=== PATIENT | male | born 1955 | race Caucasian/White ===

== ENCOUNTER 2016-09-03 16:11 | Inpatient (IN) | payer OTHER ==
[2016-09-03] VITALS (8 sets, daily range): BP systolic 126–158; BP diastolic 63–95
[~2016-09-03] VITALS: Ht 178 cm; Wt 112.7 kg
--- NOTE | ~2016-09-03 | CON ---
[place], [place] REPORT OF CONSULTATION NAME: MAKSIM SMILEY UNIT #: [id number] ROOM: [place] [address] DOCTOR: ALVIN HURST MD BIRTHDATE: [birth year] DOS: 09/09/2016 PSYCHIATRIC CONSULT CHIEF COMPLAINT: "I feel miserable. I am so depressed and I am going through withdrawal." HISTORY OF THE PRESENT ILLNESS: This is a 60-year-old white male who was admitted due to a 5-day history of nausea, vomiting, and shortness of breath. The patient quit his insulin as well approximately for 3 weeks, has been drinking at least a 12 pack of beer per day in addition to hard liquor and also has a significant opioid dependency. He is now in ICU for the treatment of these conditions and is actively withdrawing from both alcohol and opioids. He admits to a lengthy history of depression. He receives his psychiatric care at the [facility] and states that the last time he had followup was approximately 6 months ago. He endorses poor sleep and appetite, anergia, anhedonia, hopeless, helpless feelings, crying spells, and inability to cope as well as increased anxiety and restlessness and multiple symptoms of opioid withdrawal. PAST MEDICAL HISTORY: Remarkable for alcohol abuse, chronic venous insufficiency, COPD, debility, hyperlipidemia, gout, hepatitis C, cirrhosis, hypertension, diabetes, major depression, neuropathy, anemia, sleep apnea. DIAGNOSES: Major depression, recurrent and polysubstance dependence. PLAN: I will the discontinue his Trintellix, Cymbalta, and Abilify in lieu of Zyprexa 5 mg in the morning and 10 mg at night and Remeron 15 mg at night. These drugs should rapidly improve sleep and appetite. They also will block a significant amount of the opioid withdrawal symptoms. The patient requested follow up with me in the office and I have no problem with having him follow up at [facility] if he prefers. Should he require further intervention, please call me. ALVIN HURST MD CM:CONSTR:REPORT OF CONSULTATION 0927 09/09/16 2232 interface
--- NOTE | ~2016-09-03 | CON ---
[place], [place] REPORT OF CONSULTATION [id number] UNIT #: [id number] ROOM: [place] [address] DOCTOR: ARVIN SULLIVAN ED.D (CARMINA) BIRTHDATE: [birth year] DOS: HISTORY OF PRESENT ILLNESS: The patient is a 60-year-old male referred by the hospitalist for psychological evaluation. At the present time, he is in the Intensive Care Unit at [facility]. The patient states he is and has 3 children. He states he has some contact with his children, but not much. 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 He follows at the [facility] here in [place] for his medical care. His medical history is pertinent for insulin-dependent diabetes mellitus, alcohol dependence, COPD, gout, hypertension, depression, morbid obesity, congestive heart failure and/or urinary incontinence. His medications include morphine, OxyContin, Robaxin, insulin, Lasix, Symbicort, Abilify, Ventolin, Remeron, Aldactone, Trintellix and Xanax. He admits to drinking one-fifth of vodka each day along with a 6-pack of beer. He also smokes 1 pack of cigarettes per day. This patient was awake, alert and oriented in all 3 spheres. He denies any auditory or visual hallucinations or delusions, but does state he is quite anxious and depressed most of the time. He does follow at the [facility] for his depression. I spoke with the case management and they will refer him to the counseling center or [facility] for followup for his alcohol dependence once he is discharged. He is detoxed at this time. I spoke with Dr. Henderson and he stated that he did change his medications and the patient can follow with Dr. Henderson in his private office. DIAGNOSES: 1. Alcohol dependence. 2. Major depressive disorder, recurrent. Thank you very much for this consult. ARVIN SULLIVAN ED.D CM:CONSTR:REPORT OF CONSULTATION 0944 09/09/16 2223 interface
[~2016-09-03 16:11] MED LIST: ABILIFY5 MG PO; ABREVA1 CRE T; ACETAMINOPHEN &1 TA1 PO; ADVAIR 250/501 EA INH; ALDACTONE50 M1 PO; AMBIEN10 M1 PO; AMBIEN10 MG PO; AMBIEN5 MG; AMINOPHYLLIN200 MG PO; ASCORBIC ACID500 MG PO; ASPIRIN CHILDRE81 MG PO; ASPIRIN81 M1 PO; ATIVAN1 MG PO; ATOXIMETIN-B1 CAP; AVPAK AZITHROM250 M1 PO; BACTRIM DS 8001 TA1 PO; BACTRIM DS 8001 TAB PO; BENZONATATE100 M1 PO; BRIN10TA PO; BUMETANIDE1 MG PO; BUMETANIDE2 MG PO; CALCIFEROL8000 IU/ML PO; CAP Z1 CRE T; CEFTIN500 M1 PO; COREG12.5 MG PO; COREG3.125 MG PO; CYCLOBENZAPRINE10 MG PO; D-31000 IU PO; DAILY VITE1 TA1 PO; DICLOFENAC SOD75 MG PO; DOXYCYCLINE HY100 M5 PO; DOXYCYCLINE MO100 MG PO; DOXYCYCLINE100 M3 PO; DRY EYES 15 ML15 ML OPH; DUONEB 3 MG/3 ML3 M1 NEB; FERRETTS325 MG PO; FERROUS SULFAT325 M1 PO; FERROUS SULFAT325 M2 PO; FERROUS SULFAT325 MG PO; FLEXERIL10 MG PO; FLEXERIL5 MG PO; FUROSEMIDE20 M1 PO; HEP-FORTE1 CAP PO; HUMALOG100 U/ML SC; HYDROXYZINE PAM25 MG PO; IMDUR SA60 M1 PO; IMDUR30 MG PO; IMDUR60 MG PO; ISOSORBIDE1 POW; K-Dur 20MEQ20 MEQ PO; KETOROLAC10 MG PO; KLOR-CON M2020 ME1 PO; LACTULOSE20 GM/30 M PO; LANOXIN0.125 MG PO; LANTUS100 U/ML SC; LANTUS100 U/ML SQ; LASIX10 MG/ML PO; LASIX20 MG PO; LASIX40 MG PO; LASIX80 MG PO; LEVAQUIN750 M1 PO; LEVAQUIN750 MG PO; LIDODERM 5% PATC1 EA PO; LIPITOR10 MG PO; LIPITOR20 MG PO; LIPITOR40 MG PO; LISINOPRIL2.5 MG PO; LISINOPRIL5 MG PO; LOPRESSOR25 MG PO; LORAZEPAM1 MG PO; LUVOX CR150 MG PO; LYRICA100 M1 PO; LYRICA100 MG PO; LYRICA50 MG PO; Lopressor25 MG PO; MEDROL DOSEPAK4 MG PO; METHYLPREDNI40 MG/M1 IV; METOPROLOL1 MG/ML; METRONIDAZOLE500 M1 PO; MORPHINE SULFAT15 M4 PO; MORPHINE SULFAT30 M1 PO; MOTRIN600 MG PO; MS CONTIN15 MG PO; MS CONTIN30 MG PO; MUCINEX DM 30/61 TAB PO; MUCINEX600 MG PO; MYCOLOG CREAM 115 GM T; Micro K10 MEQ PO; NAPROSYN500 MG PO; NAPROXEN220 MG PO; NEXIUM40 MG PO; NICODERM C14 MG/241 T; NICODERM21 MG/24 H TD; NOVOLOG FLEX100 U/ML SC; NYAMYC100000 U/G T; OMEPRAZOLE D/R20 MG PO; OMEPRAZOLE DR20 M1 PO; OMEPRAZOLE40 MG PO; OXY IR5 MG PO; OXYBUTYNIN5 MG PO; OXYCODONE15 MG PO; OXYCODONE5 M1 PO; OXYCODONE5 MG PO; PLAVIX75 MG PO; POTASSIUM CHLO10 ME4 PO; PRAVACHOL40 MG PO; PRAVASTATIN SOD40 MG PO; PREDNISONE10 MG PO; PREDNISONE20 M1 PO; PREDNISONE20 MG PO; PROTONIX40 MG PO; RESTORIL7.5 MG; RIBAVIRIN PO; RITE AID BRANDS1 TA4 PO; ROBAXIN-750750 MG PO; SENNA8.6 MG PO; SENNALAX S PO; SEROQUEL25 MG PO; SEROQUEL50 MG PO; SERTRALINE HYD100 MG PO; SODIUM CHLORIDE45 ML NS; SOVALDI400 M1 PO; SPIRIVA 5 CAPS18 MCG INH; SYMBICORT1 AE1 INH; TEMAZEPAM15 M1 PO; TESSALON PERLE100 MG PO; TRAZODONE150 MG PO; TRAZODONE50 MG PO; ULTRAM50 MG PO; UNSURE OF MEDS; VENTOLIN 02.5 MG/3 M NEB; VENTOLIN H0.09 MG/AC INH; VIBRAMYCIN100 MG PO; VICO10300 PO; VITAMIN D1000 IU PO; WELLBUTRIN75 MG PO; XANAX0.5 MG PO; ZESTRIL5 MG PO; ZITHROMAX250 MG PO; ZOLOFT100 MG PO; ZOLOFT20 MG/ML PO; ZOLPIDEM10 M1 PO; ZOLPIDEM10 MG PO; ZOSYN 3.373.375 GM/5 IV; [UNRECOGNIZED DRUG - OTHER]; [UNRECOGNIZED DRUG - OTHER] PO; [UNRECOGNIZED DRUG - OTHER] PO; [UNRECOGNIZED DRUG - OTHER] PO; [UNRECOGNIZED DRUG - OTHER] PO; [UNRECOGNIZED DRUG - OTHER] PO; [UNRECOGNIZED DRUG - REMARK]
[2016-09-03 16:49] LABS: BASO % 0.5 % (0.0-1.0); EOS # 0.2 10*3/uL (0.0-0.4); HEMATOCRIT 47.8 % (42.0-52.0); HEMOGLOBIN 15.8 g/dl (14.0-18.0); LYMPH # 2.4 10*3/uL (1.3-4.4); LYMPH % 28.6 % (27.0-41.0); MEAN CELL VOLUME 83.6 fl (80.0-94.0); MEAN CORPUSCULAR HGB 27.6 pg (27.0-31.0); MEAN CORPUSCULAR HGB CONC 33.1 g/dl (33.0-37.0); MEAN PLATELET VOLUME 14.1 fl (9.6-12.3); MONO # 0.9 10*3/uL (0.1-1.0); MONO % 10.2 % (3.0-9.0); NEUT % 58.3 % (47.0-73.0); PLATELET COUNT AUTOMATED 72 10*3/uL (130-400); RED BLOOD COUNT 5.72 10*6/uL (4.50-5.90); RED CELL DISTRI WIDTH 15.6 % (0-14.5); WHITE BLOOD COUNT 8.5 10*3/uL (4.8-10.8)
[2016-09-03 17:04] LABS: ALBUMIN 3.6 gm/dl (3.1-4.5); ALKALINE PHOSPHATASE 88 U/L (45-117); BILIRUBIN, TOTAL 0.7 mg/dl (0.2-1.0); BUN 9 mg/dl (7-24); CARBON DIOXIDE 22 mmol/L (21-32); CHLORIDE 101 mmol/L (98-107); EST GLOM FILT AFRICAN AMERICAN > 60 ml/min; POTASSIUM 4.2 mmol/L (3.5-5.1); SGOT/AST 26 IU/L (3-35); SGPT/ALT 38 U/L (12-78); SODIUM 137 mmol/L (136-145); TOTAL PROTEIN 7.7 gm/dL (6.4-8.2)
[2016-09-03 17:06] LABS: GLUCOSE 521 mg/dL (65-99)
[2016-09-03] MEDS ORDERED: ATIVAN2 M1 PO (19:58)
[2016-09-03] MEDS ORDERED: MS CONTIN15 MG PO (19:59)
[2016-09-03] MEDS ORDERED: ROXICODONE5 MG PO (20:00)
[2016-09-04] VITALS: BP 121/59
[2016-09-04 00:39] LABS: BUN 8 mg/dl (7-24); CARBON DIOXIDE 21 mmol/L (21-32); CHLORIDE 108 mmol/L (98-107); CKMB 1.3 ng/ml (0.5-3.6); CPK 46 U/L (39-308); EST GLOM FILT AFRICAN AMERICAN > 60 ml/min; GLUCOSE 289 mg/dL (65-99); POTASSIUM 3.5 mmol/L (3.5-5.1); SODIUM 140 mmol/L (136-145)
[2016-09-04 04:00] VITALS: BP 119/67
[2016-09-04 06:37] LABS: HEMOGLOBIN 15.3 g/dl (14.0-18.0); MEAN CELL VOLUME 84.1 fl (80.0-94.0); MEAN CORPUSCULAR HGB 27.4 pg (27.0-31.0); MEAN CORPUSCULAR HGB CONC 32.6 g/dl (33.0-37.0); PLATELET COUNT AUTOMATED 63 10*3/uL (130-400); RED BLOOD COUNT 5.59 10*6/uL (4.50-5.90); RED CELL DISTRI WIDTH 15.5 % (0-14.5); WHITE BLOOD COUNT 9.3 10*3/uL (4.8-10.8)
[2016-09-04 06:41] LABS: BUN 8 mg/dl (7-24); CARBON DIOXIDE 21 mmol/L (21-32); CHLORIDE 109 mmol/L (98-107); CKMB 1.7 ng/ml (0.5-3.6); CPK 41 U/L (39-308); EST GLOM FILT AFRICAN AMERICAN > 60 ml/min; GLUCOSE 183 mg/dL (65-99); POTASSIUM 3.8 mmol/L (3.5-5.1); SODIUM 142 mmol/L (136-145)
[2016-09-04 06:59] LABS: INTERNATIONAL NORM RATIO 1.1 (2.0-3.5); PROTHROMBIN TIME 11.6 SECONDS (9.0-12.4)
[2016-09-04 07:04] LABS: FREE T4 0.91 ng/dl (0.76-1.46); MAGNESIUM 1.7 mg/dL (1.5-2.1); THYROID STIM HORMONE (HS) 0.312 uIU/ml (0.358-4.75)
[2016-09-04 07:06] LABS: LYMPHOCYTE # 0.5 10*3/uL (1.3-4.4); MONOCYTE # 0.2 10*3/uL (0.1-1.0); NEUTROPHIL # 8.6 10*3/uL (2.3-7.9); NEUTROPHILS 93 % (47-73); TOTAL CELLS COUNTED 100 #CELLS
[2016-09-04 07:07] LABS: PLATELET SUFFICIENCY LOW (NORMAL)
[2016-09-04 08:00] VITALS: BP 122/74
[2016-09-04 09:09] LABS: FOLIC ACID 9.51 ng/mL (>5.38)
[2016-09-04 12:00] VITALS: BP 107/64
[2016-09-04 12:14] LABS: BUN 8 mg/dl (7-24); CARBON DIOXIDE 23 mmol/L (21-32); CHLORIDE 110 mmol/L (98-107); CKMB 1.5 ng/ml (0.5-3.6); CPK 38 U/L (39-308); EST GLOM FILT AFRICAN AMERICAN > 60 ml/min; GLUCOSE 284 mg/dL (65-99); SODIUM 141 mmol/L (136-145)
[2016-09-04 12:16] LABS: POTASSIUM 4.8 mmol/L (3.5-5.1)
[2016-09-04 15:55] VITALS: BP 107/64
[2016-09-04 20:00] VITALS: BP 112/72
[2016-09-05] VITALS: BP 97/58
[2016-09-05 04:00] VITALS: BP 103/64
[2016-09-05 05:30] LABS: MAGNESIUM 1.8 mg/dL (1.5-2.1); PHOSPHOROUS 3.8 mg/dL (2.5-4.9)
[2016-09-05 05:33] LABS: ALBUMIN 2.9 gm/dl (3.1-4.5); ALKALINE PHOSPHATASE 64 U/L (45-117); BILIRUBIN, TOTAL 0.4 mg/dl (0.2-1.0); BUN 10 mg/dl (7-24); CARBON DIOXIDE 22 mmol/L (21-32); CHLORIDE 108 mmol/L (98-107); EST GLOM FILT AFRICAN AMERICAN > 60 ml/min; GLUCOSE 211 mg/dL (65-99); SGOT/AST 33 IU/L (3-35); SGPT/ALT 36 U/L (12-78); SODIUM 142 mmol/L (136-145); TOTAL PROTEIN 6.2 gm/dL (6.4-8.2)
[2016-09-05 05:43] LABS: POTASSIUM 3.6 mmol/L (3.5-5.1)
[2016-09-05 06:02] LABS: HEMATOCRIT 45.5 % (42.0-52.0); HEMOGLOBIN 14.5 g/dl (14.0-18.0); MEAN CELL VOLUME 85.2 fl (80.0-94.0); MEAN CORPUSCULAR HGB 27.2 pg (27.0-31.0); MEAN CORPUSCULAR HGB CONC 31.9 g/dl (33.0-37.0); PLATELET COUNT AUTOMATED 66 10*3/uL (130-400); RED BLOOD COUNT 5.34 10*6/uL (4.50-5.90); WHITE BLOOD COUNT 9.4 10*3/uL (4.8-10.8)
[2016-09-05 06:47] LABS: BASOPHIL # 0.1 10*3/uL (0-0.1); BASOPHILS 1 % (0-1); LYMPHOCYTE # 2.4 10*3/uL (1.3-4.4); MONOCYTE # 0.6 10*3/uL (0.1-1.0); NEUTROPHIL # 6.4 10*3/uL (2.3-7.9); NEUTROPHILS 68 % (47-73); TOTAL CELLS COUNTED 100 #CELLS
[2016-09-05 06:48] LABS: PLATELET SUFFICIENCY LOW (NORMAL)
[2016-09-05 08:00] VITALS: BP 123/80
[2016-09-05 16:00] VITALS: BP 109/68
[2016-09-05 20:00] VITALS: BP 119/69
[2016-09-06] VITALS: BP 128/85
[2016-09-06 08:00] VITALS: BP 119/80
[2016-09-06 12:00] VITALS: BP 117/71
[2016-09-06 16:00] VITALS: BP 104/67
[2016-09-06 20:00] VITALS: BP 138/88
[2016-09-06 21:42] VITALS: BP 115/74
[2016-09-07] VITALS: BP 117/72
[2016-09-07 04:00] VITALS: BP 124/78
[2016-09-07 09:21] LABS: HEMATOCRIT 45.5 % (42.0-52.0); HEMOGLOBIN 14.7 g/dl (14.0-18.0); MEAN CELL VOLUME 84.7 fl (80.0-94.0); MEAN CORPUSCULAR HGB 27.4 pg (27.0-31.0); MEAN CORPUSCULAR HGB CONC 32.3 g/dl (33.0-37.0); PLATELET COUNT AUTOMATED 65 10*3/uL (130-400); RED BLOOD COUNT 5.37 10*6/uL (4.50-5.90); RED CELL DISTRI WIDTH 15.9 % (0-14.5); WHITE BLOOD COUNT 6.2 10*3/uL (4.8-10.8)
[2016-09-07 09:37] LABS: ALKALINE PHOSPHATASE 65 U/L (45-117); BILIRUBIN, TOTAL 0.4 mg/dl (0.2-1.0); BUN 8 mg/dl (7-24); CARBON DIOXIDE 26 mmol/L (21-32); CHLORIDE 110 mmol/L (98-107); EST GLOM FILT AFRICAN AMERICAN > 60 ml/min; GLUCOSE 186 mg/dL (65-99); SGOT/AST 32 IU/L (3-35); SGPT/ALT 50 U/L (12-78); SODIUM 143 mmol/L (136-145); TOTAL PROTEIN 6.6 gm/dL (6.4-8.2)
[2016-09-07 10:02] LABS: BASOPHIL # 0.1 10*3/uL (0-0.1); BASOPHILS 2 % (0-1); EOSINOPHIL # 0.1 10*3/uL (0-0.4); EOSINOPHILS 2 % (1-4); MONOCYTE # 0.6 10*3/uL (0.1-1.0); NEUTROPHIL # 3.3 10*3/uL (2.3-7.9); NEUTROPHILS 54 % (47-73); PLATELET SUFFICIENCY LOW (NORMAL); TOTAL CELLS COUNTED 100 #CELLS
[2016-09-07 12:00] VITALS: BP 120/70
[2016-09-07 16:00] VITALS: BP 126/90
[2016-09-07 20:00] VITALS: BP 128/94
[2016-09-08] VITALS: BP 130/71
[2016-09-08 12:00] VITALS: BP 131/79
[2016-09-08 16:00] VITALS: BP 114/72
[2016-09-08 20:00] VITALS: BP 126/88
[2016-09-09] VITALS (7 sets, daily range): BP systolic 115–126; BP diastolic 70–81
[2016-09-09 06:01] LABS: BASO % 0.5 % (0.0-1.0); EOS # 0.2 10*3/uL (0.0-0.4); EOS % 1.9 % (1.0-4.0); HEMATOCRIT 47.9 % (42.0-52.0); HEMOGLOBIN 15.5 g/dl (14.0-18.0); LYMPH # 2.3 10*3/uL (1.3-4.4); LYMPH % 25.8 % (27.0-41.0); MEAN CELL VOLUME 86.2 fl (80.0-94.0); MEAN CORPUSCULAR HGB 27.9 pg (27.0-31.0); MEAN CORPUSCULAR HGB CONC 32.4 g/dl (33.0-37.0); MEAN PLATELET VOLUME 14.7 fl (9.6-12.3); MONO # 0.9 10*3/uL (0.1-1.0); MONO % 10.5 % (3.0-9.0); NEUT # 5.4 10*3/uL (2.3-7.9); NEUT % 61.1 % (47.0-73.0); PLATELET COUNT AUTOMATED 75 10*3/uL (130-400); RED BLOOD COUNT 5.56 10*6/uL (4.50-5.90); WHITE BLOOD COUNT 8.8 10*3/uL (4.8-10.8)
[2016-09-09 06:13] LABS: BUN 11 mg/dl (7-24); CARBON DIOXIDE 26 mmol/L (21-32); CHLORIDE 106 mmol/L (98-107); EST GLOM FILT AFRICAN AMERICAN > 60 ml/min; GLUCOSE 203 mg/dL (65-99); PHOSPHOROUS 3.6 mg/dL (2.5-4.9); POTASSIUM 4.2 mmol/L (3.5-5.1); SODIUM 140 mmol/L (136-145)
[2016-09-10] VITALS: BP 134/83
[2016-09-10 04:00] VITALS: BP 125/81
[2016-09-10 06:25] LABS: BASO % 0.2 % (0.0-1.0); EOS # 0.1 10*3/uL (0.0-0.4); EOS % 1.4 % (1.0-4.0); HEMATOCRIT 49.6 % (42.0-52.0); HEMOGLOBIN 15.6 g/dl (14.0-18.0); LYMPH # 2.8 10*3/uL (1.3-4.4); LYMPH % 30.3 % (27.0-41.0); MEAN CELL VOLUME 87.6 fl (80.0-94.0); MEAN CORPUSCULAR HGB 27.6 pg (27.0-31.0); MEAN CORPUSCULAR HGB CONC 31.5 g/dl (33.0-37.0); MEAN PLATELET VOLUME 13.9 fl (9.6-12.3); MONO % 10.6 % (3.0-9.0); NEUT # 5.3 10*3/uL (2.3-7.9); NEUT % 57.3 % (47.0-73.0); PLATELET COUNT AUTOMATED 73 10*3/uL (130-400); RED BLOOD COUNT 5.66 10*6/uL (4.50-5.90); RED CELL DISTRI WIDTH 16.1 % (0-14.5); WHITE BLOOD COUNT 9.3 10*3/uL (4.8-10.8)
[2016-09-10 06:32] LABS: ALBUMIN 3.2 gm/dl (3.1-4.5); ALKALINE PHOSPHATASE 69 U/L (45-117); BILIRUBIN, TOTAL 0.5 mg/dl (0.2-1.0); BUN 9 mg/dl (7-24); CARBON DIOXIDE 29 mmol/L (21-32); CHLORIDE 107 mmol/L (98-107); EST GLOM FILT AFRICAN AMERICAN > 60 ml/min; GLUCOSE 154 mg/dL (65-99); SGOT/AST 28 IU/L (3-35); SGPT/ALT 44 U/L (12-78); SODIUM 143 mmol/L (136-145); TOTAL PROTEIN 7.2 gm/dL (6.4-8.2)
[2016-09-10 08:00] VITALS: BP 117/79
[2016-09-10 12:00] VITALS: BP 122/93
[2016-09-10 16:00] VITALS: BP 103/67
[2016-09-10 20:00] VITALS: BP 110/66
[2016-09-11] VITALS: BP 113/58
[2016-09-11 08:00] VITALS: BP 110/64
[2016-09-11 11:48] LABS: ABG BASE EXCESS 2.6 mmol/L (-2.0-2.0); ABG CO2 CONTENT 28.7 mmol/L (23-27); ABG HCO3 27.4 mmol/l (22-26); ABG TEMPERATURE 98.1 F (98.0-99.0); ARTERIAL BLOOD GAS PH 7.408 (7.35-7.45)
[2016-09-11 12:00] VITALS: BP 117/72
[2016-09-11 17:00] VITALS: BP 132/84
[2016-09-11 20:00] VITALS: BP 146/82
[2016-09-12] VITALS: BP 129/63
[2016-09-12 07:59] VITALS: BP 150/68
[2016-09-12 12:27] VITALS: BP 148/78
[2016-09-12] MEDS ORDERED: LORAZEPAM0.5 MG PO (14:06)
[2016-09-12] MEDS ORDERED: NATURE'S BLEND F1 MG PO (14:06)
[2016-09-12] MEDS ORDERED: MAPAP325 MG PO (14:06)
[2016-09-12] MEDS ORDERED: ZYPREXA5 M1 PO (14:06)
[2016-09-12] MEDS ORDERED: OLANZAPINE10 MG PO (14:06)
[2016-09-12] MEDS ORDERED: MIRTAZAPINE15 M2 PO (14:06)
[2016-09-12] MEDS ORDERED: DOXYCYCLINE MO100 M1 PO (14:06)
[2016-09-12] MEDS ORDERED: VITAMIN B-11 TAB PO (14:06)
[2016-09-12] MEDS ORDERED: CHLORDIAZEPOXID25 M1 PO (14:06)
[2016-09-27] MEDS ORDERED: VITAMIN D50000 I3 PO (13:46)
[2016-09-27] MEDS ORDERED: VENTOLIN H0.09 MG/AC INH (13:50)
[2016-09-27] MEDS ORDERED: ABILIFY10 MG PO (13:51)
[2016-09-27] MEDS ORDERED: BAYER ASPIRIN C81 MG PO (13:51)
[2016-09-27] MEDS ORDERED: ZOLOFT100 MG PO (13:52)
[2016-09-27] MEDS ORDERED: ULTRAM50 MG PO (13:52)
[2016-09-27] MEDS ORDERED: CEPHULAC10 GM/151 PO (13:53)
[2016-09-27] MEDS ORDERED: MAGNESIUM OXID400 MG PO (13:53)
[2016-09-27] MEDS ORDERED: OMEPRAZOLE20 M2 PO (13:53)
[2016-09-27] MEDS ORDERED: VITAMIN D1000 IU PO (13:54)
[2016-09-27] MEDS ORDERED: BUSPAR5 MG PO (13:54)
[2016-09-27] MEDS ORDERED: DICLOFENAC SOD75 MG PO (13:54)
[2016-09-30] MEDS ORDERED: NICODERM C14 MG/241 T ×2 (16:24→16:25)
[2016-09-30] MEDS ORDERED: VITAMIN D50000 I3 PO (16:24)
[2016-09-30] MEDS ORDERED: LEVEMIR10 ML SC (16:24)
[2016-09-30] MEDS ORDERED: IMDUR SA30 MG PO (16:27)
[2016-09-30] MEDS ORDERED: DOXYCYCLINE100 M3 PO (16:43)
[2016-10-18] MEDS ORDERED: ULTRAM50 MG PO (15:55)
[2016-10-18] MEDS ORDERED: ISOSORBIDE MONO30 MG PO (15:57)
[2016-10-18] MEDS ORDERED: MAGOX 400400 MG PO (16:02)
[2016-10-18] MEDS ORDERED: LANTUS SOLOS100 U/M1 SC (16:04)
== END 2016-09-12 14:59 | disposition home health service (06) | DRG 871 ==
LOC: ED 16:11 → ICCU 18:00 → EDHOLD 18:00 → ICCU 18:29 → 5E 09-05 13:29 → ICCU 09-06 21:30 → 4E 09-07 14:27 → ICCU 09-09 01:14 → 4E 09-10 17:09
PROVIDERS: Family Medicine; Internal Medicine; Nurse Practitioner Family
DX: A41.9 Sepsis, unspecified organism (principal); E43 Unspecified severe protein-calorie malnutrition; G93.41 Metabolic encephalopathy; E13.10 Other specified diabetes mellitus with ketoacidosis without coma; F10.231 Alcohol dependence with withdrawal delirium; J18.9 Pneumonia, unspecified organism; J44.1 Chronic obstructive pulmonary disease with (acute) exacerbation; I50.20 Unspecified systolic (congestive) heart failure; J44.0 Chronic obstructive pulmonary disease with (acute) lower respiratory infection; F11.20 Opioid dependence, uncomplicated; R45.851 Suicidal ideations; F33.9 Major depressive disorder, recurrent, unspecified; F41.1 Generalized anxiety disorder; E13.40 Other specified diabetes mellitus with diabetic neuropathy, unspecified; B18.2 Chronic viral hepatitis C; K74.60 Unspecified cirrhosis of liver; E78.5 Hyperlipidemia, unspecified; I11.0 Hypertensive heart disease with heart failure; D64.9 Anemia, unspecified; G47.33 Obstructive sleep apnea (adult) (pediatric); D69.6 Thrombocytopenia, unspecified; M10.9 Gout, unspecified; E66.01 Morbid (severe) obesity due to excess calories; Z98.61 Coronary angioplasty status; Z90.49 Acquired absence of other specified parts of digestive tract; Z98.890 Other specified postprocedural states; Z82.49 Family history of ischemic heart disease and other diseases of the circulatory system; Z72.0 Tobacco use; Z83.3 Family history of diabetes mellitus; Z88.1 Allergy status to other antibiotic agents; Z88.8 Allergy status to other drugs, medicaments and biological substances; Z79.899 Other long term (current) drug therapy; Z95.810 Presence of automatic (implantable) cardiac defibrillator; Z68.22 Body mass index [BMI] 22.0-22.9, adult

== ENCOUNTER 2016-09-12 15:45 | Inpatient (IN) | payer OTHER ==
[~2016-09-12] VITALS: Ht 177.8 cm; Wt 71.7 kg
--- NOTE | ~2016-09-12 | DS ---
[place], [place] DISCHARGE SUMMARY NAME: [id number] UNIT #: [id number] ROOM: 316 DOCTOR: ALVIN HURST MD BIRTHDATE: [birth year] DOS: 09/16/2016 CHIEF COMPLAINT: "I am so depressed doc, I need to get better." HISTORY OF PRESENT ILLNESS: This is a 61-year-old white male who was initially admitted to ICU due to an exacerbation of his COPD. While there, the patient admitted to significant alcohol and opioid use for over 30 years and was placed on withdrawal protocol. The patient reported worsening depression and states that he has been treated [facility] the [facility], but this treatment has been ineffective. He has noted that his depression has been worse over the last several weeks prior to this admission with poor sleep and appetite, anergia, anhedonia, hopeless and helpless feelings, crying spells, and inability to cope. He has had fleeting suicidal thoughts many of this has been worsened with his substance abuse issues. He plans to overdose on alcohol and drugs in order to kill himself. PAST MEDICAL HISTORY: Remarkable for COPD, debility, hyperlipidemia, gout, hep C, cirrhosis, hypertension, obesity, neuropathy, anemia, sleep apnea, peripheral edema, splenomegaly and dermatitis. SUMMARY OF THE HOSPITAL COURSE: The patient was admitted to the unit where he was continued on Remeron 15 mg at bedtime, Zyprexa which was started at 5 mg in the morning and 10 mg at night, was lowered getting rid of the morning dose as it was causing him to have some sedation. Screening examinations showed his ammonia level to be elevated at 42, so he was started on lactulose 30 mL p.o. b.i.d. Additionally, he was found to be low in vitamin D, so vitamin D 50,000 international units were started. He continued off of his Librium taper and this was eventually discontinued. He did request some nonaddicting antianxiety agent prior to discharge, so he was started on Vistaril 50 mg t.i.d. His plan was to return home. He was hoping possibly to get in to [facility] if this was a possibility. At the time of discharge, he convincingly denied suicidal thoughts, homicidal thoughts, any self-injurious thoughts and voiced very positive plans for the future. MENTAL STATUS AT DISCHARGE: The patient was alert and oriented to person, place, and time. Mood was euthymic. Affect appropriate. There were no symptoms of alexsander or hypomania. There were no auditory or visual hallucinations. No delusions, no paranoia. Short, intermediate, and long-term memory were intact. FINAL DIAGNOSES: Major depression, recurrent, severe, and polysubstance dependence. PLAN: All of his scripts have been E[facility] to [facility]. He has expressed a desire to follow up with me in my office. He can see either myself or Lucille Knight for the first visit. [place], [place] DISCHARGE SUMMARY NAME: MAKSIM SMILEY UNIT #: [id number] ROOM: 316 DOCTOR: ALVIN HURST MD BIRTHDATE: [birth year] ALVIN HURST MD CM:BRENNA [phone] ALVIN HURST MD 09/16/16 1749 interface
--- NOTE | ~2016-09-12 | PR ---
[place], [place] PROGRESS NOTE NAME: [facility]MI[id number] UNIT #: [id number] ROOM: 316 DOCTOR: JAVIER OVIEDO SANCHO BIRTHDATE: [birth year] DOS: 09/14/2016 CHIEF COMPLAINT: "Not feeling too good doc." SUMMARY OF VISIT: The patient was assessed in his room. It should be noted before even I knocked on the room, I could hear him breathing in the room very rhonchorous. Nursing stated that he is very short of breath, and that the hospitalist have been aggressively diuresing him. He has a Dash in place. He has decompensated significantly over the last several days to the point where he is, even with physical therapy, not able to ambulate more than a couple of steps without being increasingly short of breath. He was initially in the ICU for COPD exacerbation. Again, he is very rhonchorous. He does state that his depression is bad, but that his anxiety is worse. He notes that his anxiety is bad with shortness of breath that he gets scared. He also noticed that his anxiety seems to get a little bit more escalated during breathing treatments, which I explained to him with the albuterol, some of the chemicals, and medications in the breathing treatments, it can trigger the sense of anxiety, which seemed to help him feel better, but he states that he is not sleeping, he is starting to feel more weak and that his depression is kind of tied to how his life is going to be from here on now. I did have the nursing staff reach out to the hospitalist, because I am concerned at this point in time that he is more medical than he is depressed or anxious. I really cannot address the depression or anxiety right now with the shortness of breath looming so significantly over him right now. MENTAL STATUS: He is alert and oriented to person, place, approximate, time. Mood is depressed. Anxious overtones, but he is using accessory muscles of breathing, he is scared. I do not know if he needs to be more aggressively diuresed, and if he does, then it maybe he needs to be on the medical floor. I have asked them to change his vital signs from q.shift to q.4-6 hours and to be aggressive as far as calling for respiratory treatment, because all his respiratory treatments are p.r.n. and he may need scheduled on top of p.r.n. at this point in time. Hospitalists are now down evaluating him at this point in time. PLAN: I am not changing any psych meds at this time. I want to see what the hospitalists want to do, does he need to go onto the medical floor to be monitored and stabilized for his COPD exacerbation and let me consult and manage his depression from that standpoint. I am going to go ahead and maybe add a little BuSpar, it is nonsedating, it can sometimes help with anxiety, but it does help with increasing dry up to breathe and this might help a little bit with his COPD exacerbation. Other than that, I am not going to change any of his meds. I will wait to hear what the hospitalists think is in his best interest. [place], [place] PROGRESS NOTE NAME: MAKSIM SMILEY UNIT #: [id number] ROOM: [facility] DOCTOR: JAVIER OVIEDO BIRTHDATE: [birth year] SANCHO OVIEDO CNP CM:PNAGUILA [id number] JAVIER OVIEDO 09/16/16 0408 interface
--- NOTE | ~2016-09-12 | WRIGHTHP ---
[place], [place] PATIENT HISTORY AND PHYSICAL EXAM NAME: MAKSIM SMILEY [facility] #: [id number] UNIT #: [id number] ROOM: 316 DOCTOR: ALVIN HURST MD BIRTHDATE: [birth year] DOS: 09/13/2016 CHIEF COMPLAINT: "I am just so depressed doctor, I need to get better." HISTORY OF PRESENT ILLNESS: This is a 61-year-old white male who was initially admitted to the ICU due to an exacerbation of his COPD. While there, the patient had admitted to significant alcohol and opioid abuse for 30+ years and was placed on a withdrawal protocol. The patient reported worsening depression and stated that the medicines that he was on from the [facility] were ineffective and combating his mood symptoms. He noted that the depression had been worse over the last several weeks with poor sleep and appetite, anergia, anhedonia, hopeless, helpless feelings, some crying spells, and inability to cope. He has had fleeting suicidal thoughts and his plan was to overdose on alcohol and drugs. He also was uncomfortable while in ICU because he was going through some withdrawal symptoms. PAST MEDICAL HISTORY: Remarkable for COPD, debility, hyperlipidemia, gout, hep C cirrhosis, hypertension, obesity, neuropathy, anemia, sleep apnea, peripheral edema, splenomegaly, and dermatitis. MENTAL STATUS: The patient is alert and oriented. He is rather depressed. He is flat and blunted with a constricted range. He notes some anxiety and some mood lability. He endorses multiple neurovegetative symptoms. There is no hypomania or alexsander. There are no auditory or visual hallucinations. No delusions are present. Short, intermediate, and long-term memory are intact. DIAGNOSIS: Major depression, recurrent, polysubstance abuse. PLAN: The patient's screening examinations reveal him to have a low vitamin D level, so I will discontinue his daily vitamin D in lieu of vitamin D 50,000 units internationally weekly. He complains to me of having some incontinence. The incontinence is worse at night, but does also occurred during the day. This is new. I will therefore discontinue his model photographers', Zyprexa and decrease his Librium from 25 mg twice daily to 10 mg twice daily with the plan to discontinue this soon. Screening examinations reveal his serum ammonia level to be elevated at 42, so I will start him on lactulose 30 mL p.o. b.i.d. I will maintain the Remeron 15 mg at night along with Zyprexa 10 mg at night. He did report to me he is unhappy staying at [facility] and wishes alternative placement. I have already discussed this with oncology social work to see if we can get him into alternative living situations. We will engage him in individual and amaya milieu activity with the ultimate plan to discharge then when psychiatrically stable. [place], [place] PATIENT HISTORY AND PHYSICAL EXAM NAME: MAKSIM SMILEY UNIT #: [id number] ROOM: [facility] DOCTOR: ALVIN HURST MD BIRTHDATE: [birth year] ALVIN HURST MD CM:HISPHYS:PATIENT HISTORY AND PHYSICAL EXAMINATION 0848 [id number] ALVIN HURST MD 09/13/16 0922 interface
--- NOTE | ~2016-09-12 | PR ---
[place], [place] PROGRESS NOTE NAME: MAKSIM SMILEY UNIT #: [id number] ROOM: 316 DOCTOR: JAVIER OVIEDO BIRTHDATE: [birth year] DOS: 09/15/2016 CHIEF COMPLAINT: "Good morning." SUMMARY OF VISIT: The patient was assessed in his room where he was lying down. When I initially got to the unit, he was sitting in a wheelchair in the common area dining room watching TV. Overall, appears to be feeling better, not so rhonchorous when entering the room. Shortness of breath has improved, hospitalist did round on him yesterday and increased my understanding is on his diuretics, scheduled some more breathing treatments; we are continuing doing regular vital sign checks and requesting p.r.n. breathing treatments when need be. He is responding well to this along with BuSpar which I gave him to help with some of his anxiety and increase his drive to breathe. We had a long conversation about his health concerns and how he needs to not wait when he starts feeling short of breath or having issues that he needs to go to his doctor getting out of control because we can turn him around faster than waiting until he decompensates. MENTAL STATUS: He is alert and oriented to person, place, approximate time. Mood, definitely trending towards euthymic. Affect is more appropriate. No alexsander, hypomania. No overt signs of auditory or visual hallucinations, delusions or paranoia. The patient does state that he feels that his depression and anxiety is linked to his health issues, that he is fearful of dying. He is fearful that his quality of life is going to be limited because of shortness of breath and the diabetes being out of control and his drinking and etc. I do believe that getting some of the medical things under control yesterday has helped. He has even acknowledged that he can see the light at the end of the tunnel, now that he is feeling better. He is less anxious now that he understands the effects of the medication, that the prednisone and the breathing treatments, sometimes can make him feel agitated for a few minutes and if he rides it out, he feels better and it is not just anxiety from nowhere, that sometimes it is the medication that can contribute to it and he is okay with this since it is making him breathe better. PLAN: I am going keep his psychotropics where they are at. We will continue with the breathing treatments. Continue diuresing him. My understanding is they may want to remove the Dash today and if we do that and he is still urinating over 4000 units, I would suggest multiple urinals be made available to him, I do not want him to stagger and try to get up too quickly and try to get to the bathroom to urinate and end up falling. So, we will try to be proactive. Long-term goal is to get him discharged as soon as medically and psychologically stable. [place], [place] PROGRESS NOTE NAME: MAKSIM SMILEY UNIT #: [id number] ROOM: 316 DOCTOR: JAVIER OVIEDO BIRTHDATE: [birth year] SANCHO OVIEDO CNP CM:DARRELL [id number] JAVIER OVIEDO 10/18/16 1408 interface
[~2016-09-12 15:45] MED LIST changes: +ATIVAN2 M1 PO; +CHLORDIAZEPOXID25 M1 PO; +DOXYCYCLINE MO100 M1 PO; +LORAZEPAM0.5 MG PO; +MAPAP325 MG PO; +MIRTAZAPINE15 M2 PO; +NATURE'S BLEND F1 MG PO; +OLANZAPINE10 MG PO; +ROXICODONE5 MG PO; +VITAMIN B-11 TAB PO; +ZYPREXA5 M1 PO
[2016-09-12 17:03] VITALS: BP 110/61
[2016-09-12 20:15] VITALS: BP 135/68
[2016-09-13 07:42] LABS: BASO % 0.6 % (0.0-1.0); EOS # 0.1 10*3/uL (0.0-0.4); EOS % 1.2 % (1.0-4.0); HEMATOCRIT 45.9 % (42.0-52.0); HEMOGLOBIN 14.9 g/dl (14.0-18.0); LYMPH # 1.7 10*3/uL (1.3-4.4); LYMPH % 24.6 % (27.0-41.0); MEAN CORPUSCULAR HGB 27.6 pg (27.0-31.0); MEAN CORPUSCULAR HGB CONC 32.5 g/dl (33.0-37.0); MEAN PLATELET VOLUME 13.4 fl (9.6-12.3); MONO # 0.7 10*3/uL (0.1-1.0); MONO % 10.3 % (3.0-9.0); NEUT # 4.3 10*3/uL (2.3-7.9); NEUT % 63.2 % (47.0-73.0); PLATELET COUNT AUTOMATED 67 10*3/uL (130-400); RED CELL DISTRI WIDTH 15.4 % (0-14.5); WHITE BLOOD COUNT 6.8 10*3/uL (4.8-10.8)
[2016-09-13 08:00] VITALS: BP 121/71
[2016-09-13 08:03] LABS: HEMOGLOBIN A1c 10.5 % (4.8-5.6)
[2016-09-13 08:20] LABS: ALBUMIN 3.1 gm/dl (3.1-4.5); ALKALINE PHOSPHATASE 70 U/L (45-117); BILIRUBIN, TOTAL 0.5 mg/dl (0.2-1.0); BUN 8 mg/dl (7-24); CARBON DIOXIDE 28 mmol/L (21-32); CHLORIDE 108 mmol/L (98-107); EST GLOM FILT AFRICAN AMERICAN > 60 ml/min; GLUCOSE 133 mg/dL (65-99); POTASSIUM 3.9 mmol/L (3.5-5.1); SGOT/AST 22 IU/L (3-35); SGPT/ALT 31 U/L (12-78); SODIUM 142 mmol/L (136-145); TOTAL PROTEIN 6.6 gm/dL (6.4-8.2)
[2016-09-13 12:56] LABS: BILIRUBIN NEGATIVE (NEGATIVE); BLOOD NEGATIVE (NEGATIVE); CLARITY CLEAR (CLEAR); COLOR YELLOW (YELLOW); GLUCOSE 1+ (NEGATIVE); KETONE NEGATIVE (NEGATIVE); LEUKO ESTERASE NEGATIVE (NEGATIVE); NITRITE NEGATIVE (NEGATIVE); PROTEIN NEGATIVE (NEGATIVE)
[2016-09-13 13:03] LABS: BACTERIA TRACE; URINE REFLEX COMMENT NO (NO)
[2016-09-13 19:55] VITALS: BP 116/60
[2016-09-14 07:54] VITALS: BP 118/74
[2016-09-14 12:34] LABS: BASO % 0.3 % (0.0-1.0); EOS # 0.1 10*3/uL (0.0-0.4); EOS % 0.7 % (1.0-4.0); HEMATOCRIT 49.6 % (42.0-52.0); HEMOGLOBIN 15.9 g/dl (14.0-18.0); LYMPH # 2.4 10*3/uL (1.3-4.4); LYMPH % 26.7 % (27.0-41.0); MEAN CELL VOLUME 86.1 fl (80.0-94.0); MEAN CORPUSCULAR HGB 27.6 pg (27.0-31.0); MEAN CORPUSCULAR HGB CONC 32.1 g/dl (33.0-37.0); MEAN PLATELET VOLUME 13.7 fl (9.6-12.3); MONO # 0.8 10*3/uL (0.1-1.0); MONO % 8.5 % (3.0-9.0); NEUT # 5.6 10*3/uL (2.3-7.9); NEUT % 63.5 % (47.0-73.0); PLATELET COUNT AUTOMATED 72 10*3/uL (130-400); RED BLOOD COUNT 5.76 10*6/uL (4.50-5.90); RED CELL DISTRI WIDTH 15.7 % (0-14.5); WHITE BLOOD COUNT 8.9 10*3/uL (4.8-10.8)
[2016-09-14 12:58] LABS: ALBUMIN 3.4 gm/dl (3.1-4.5); ALKALINE PHOSPHATASE 73 U/L (45-117); BILIRUBIN, TOTAL 0.4 mg/dl (0.2-1.0); BUN 11 mg/dl (7-24); CARBON DIOXIDE 32 mmol/L (21-32); CHLORIDE 102 mmol/L (98-107); EST GLOM FILT AFRICAN AMERICAN > 60 ml/min; GLUCOSE 212 mg/dL (65-99); POTASSIUM 3.3 mmol/L (3.5-5.1); SGOT/AST 19 IU/L (3-35); SGPT/ALT 32 U/L (12-78); SODIUM 143 mmol/L (136-145); TOTAL PROTEIN 7.8 gm/dL (6.4-8.2)
[2016-09-14 13:57] VITALS: BP 119/74
[2016-09-14 19:41] VITALS: BP 112/67
[2016-09-15 02:15] VITALS: BP 112/67
[2016-09-15 07:52] VITALS: BP 99/63
[2016-09-15 14:22] VITALS: BP 93/47
[2016-09-15 19:50] VITALS: BP 102/44
[2016-09-16 02:00] VITALS: BP 124/64
[2016-09-16 07:05] LABS: BASO % 0.2 % (0.0-1.0); EOS % 0.3 % (1.0-4.0); HEMATOCRIT 47.2 % (42.0-52.0); HEMOGLOBIN 15.6 g/dl (14.0-18.0); LYMPH % 28.7 % (27.0-41.0); MEAN CORPUSCULAR HGB 27.4 pg (27.0-31.0); MEAN CORPUSCULAR HGB CONC 33.1 g/dl (33.0-37.0); MEAN PLATELET VOLUME 13.8 fl (9.6-12.3); MONO # 0.7 10*3/uL (0.1-1.0); MONO % 6.8 % (3.0-9.0); NEUT # 6.7 10*3/uL (2.3-7.9); NEUT % 63.7 % (47.0-73.0); PLATELET COUNT AUTOMATED 73 10*3/uL (130-400); RED CELL DISTRI WIDTH 14.8 % (0-14.5); WHITE BLOOD COUNT 10.4 10*3/uL (4.8-10.8)
[2016-09-16 07:10] LABS: MEAN CELL VOLUME 82.8 fl (80.0-94.0)
[2016-09-16 07:27] LABS: CARBON DIOXIDE 30 mmol/L (21-32); CHLORIDE 100 mmol/L (98-107); EST GLOM FILT AFRICAN AMERICAN > 60 ml/min; GLUCOSE 232 mg/dL (65-99); POTASSIUM 3.6 mmol/L (3.5-5.1); SODIUM 139 mmol/L (136-145)
[2016-09-16 07:28] LABS: BUN 23 mg/dl (7-24)
[2016-09-16] MEDS ORDERED: OLANZAPINE10 MG PO (08:14)
[2016-09-16] MEDS ORDERED: HYDROXYZINE PAM25 M1 PO (08:14)
[2016-09-16] MEDS ORDERED: MIRTAZAPINE15 M2 PO (08:14)
[2016-09-16] MEDS ORDERED: VITAMIN D50000 I3 PO (08:14)
[2016-09-16 08:15] VITALS: BP 102/60
[2016-09-16] MEDS ORDERED: DOXYCYCLINE MO100 M1 PO (09:06)
[2016-09-27] MEDS ORDERED: VITAMIN D50000 I3 PO (13:46)
[2016-09-27] MEDS ORDERED: VENTOLIN H0.09 MG/AC INH (13:50)
[2016-09-27] MEDS ORDERED: BAYER ASPIRIN C81 MG PO (13:51)
[2016-09-27] MEDS ORDERED: ABILIFY10 MG PO (13:51)
[2016-09-27] MEDS ORDERED: ZOLOFT100 MG PO (13:52)
[2016-09-27] MEDS ORDERED: ULTRAM50 MG PO (13:52)
[2016-09-27] MEDS ORDERED: CEPHULAC10 GM/151 PO (13:53)
[2016-09-27] MEDS ORDERED: MAGNESIUM OXID400 MG PO (13:53)
[2016-09-27] MEDS ORDERED: OMEPRAZOLE20 M2 PO (13:53)
[2016-09-27] MEDS ORDERED: VITAMIN D1000 IU PO (13:54)
[2016-09-27] MEDS ORDERED: BUSPAR5 MG PO (13:54)
[2016-09-27] MEDS ORDERED: DICLOFENAC SOD75 MG PO (13:54)
[2016-09-30] MEDS ORDERED: LEVEMIR10 ML SC (16:24)
[2016-09-30] MEDS ORDERED: VITAMIN D50000 I3 PO (16:24)
[2016-09-30] MEDS ORDERED: NICODERM C14 MG/241 T ×2 (16:24→16:25)
[2016-09-30] MEDS ORDERED: IMDUR SA30 MG PO (16:27)
[2016-09-30] MEDS ORDERED: DOXYCYCLINE100 M3 PO (16:43)
[2016-10-18] MEDS ORDERED: ULTRAM50 MG PO (15:55)
[2016-10-18] MEDS ORDERED: ISOSORBIDE MONO30 MG PO (15:57)
[2016-10-18] MEDS ORDERED: MAGOX 400400 MG PO (16:02)
[2016-10-18] MEDS ORDERED: LANTUS SOLOS100 U/M1 SC (16:04)
== END 2016-09-16 13:40 | disposition home or self-care (01) | DRG 885 ==
LOC: 3N 15:45
PROVIDERS: Family Medicine; Internal Medicine; Psychiatry & Neurology Psychiatry
DX: F33.2 Major depressive disorder, recurrent severe without psychotic features (principal); F10.231 Alcohol dependence with withdrawal delirium; E11.40 Type 2 diabetes mellitus with diabetic neuropathy, unspecified; I50.20 Unspecified systolic (congestive) heart failure; I11.0 Hypertensive heart disease with heart failure; J44.1 Chronic obstructive pulmonary disease with (acute) exacerbation; D69.6 Thrombocytopenia, unspecified; F19.20 Other psychoactive substance dependence, uncomplicated; F11.29 Opioid dependence with unspecified opioid-induced disorder; Y90.9 Presence of alcohol in blood, level not specified; M10.9 Gout, unspecified; F41.1 Generalized anxiety disorder; B19.20 Unspecified viral hepatitis C without hepatic coma; K74.60 Unspecified cirrhosis of liver; G89.29 Other chronic pain; M54.5 Low back pain; G47.33 Obstructive sleep apnea (adult) (pediatric); D64.9 Anemia, unspecified; E66.01 Morbid (severe) obesity due to excess calories; E78.5 Hyperlipidemia, unspecified; Z79.4 Long term (current) use of insulin; Z98.61 Coronary angioplasty status; Z90.49 Acquired absence of other specified parts of digestive tract; Z98.890 Other specified postprocedural states; Z95.810 Presence of automatic (implantable) cardiac defibrillator; Z83.3 Family history of diabetes mellitus; Z88.1 Allergy status to other antibiotic agents; Z88.8 Allergy status to other drugs, medicaments and biological substances; Z79.899 Other long term (current) drug therapy; Z68.22 Body mass index [BMI] 22.0-22.9, adult

== ENCOUNTER 2016-11-22 13:31 | Emergency (ER) | payer OTHER ==
[~2016-11-22] VITALS: Wt 115.7 kg
[~2016-11-22 13:31] MED LIST changes: +ABILIFY10 MG PO; +BAYER ASPIRIN C81 MG PO; +BUSPAR5 MG PO; +CEPHULAC10 GM/151 PO; +HYDROXYZINE PAM25 M1 PO; +IMDUR SA30 MG PO; +ISOSORBIDE MONO30 MG PO; +LANTUS SOLOS100 U/M1 SC; +LEVEMIR10 ML SC; +MAGNESIUM OXID400 MG PO; +MAGOX 400400 MG PO; +OMEPRAZOLE20 M2 PO; +VITAMIN D50000 I3 PO
[2016-11-22] MEDS ORDERED: MIRTAZAPINE30 M1 PO (13:45)
[2016-11-22] MEDS ORDERED: NYSTATIN CREAM15 GM T (14:14)
[2016-11-22] MEDS ORDERED: CEPHALEXIN500 M1 PO (14:14)
[2016-11-22] MEDS ORDERED: DIFLUCAN150 MG PO (14:14)
== END 2016-11-22 14:21 | disposition home or self-care (01) ==
LOC: ED 13:31
DX: L02.214 Cutaneous abscess of groin (principal); B37.2 Candidiasis of skin and nail; F17.200 Nicotine dependence, unspecified, uncomplicated; Z79.899 Other long term (current) drug therapy; Z88.1 Allergy status to other antibiotic agents; Z88.8 Allergy status to other drugs, medicaments and biological substances

== ENCOUNTER 2016-12-22 20:21 | Inpatient (IN) | payer OTHER ==
[~2016-12-22] VITALS: Ht 177.8 cm; Wt 110.9 kg
--- NOTE | ~2016-12-22 | PROC NOTE ---
[place], [place] PROCEDURE NOTE NAME: MAKSIM SMILEY [facility] #: [id number] UNIT #: [id number] ROOM: 508 DOCTOR: ACLLUM TANNER BIRTHDATE: [birth year] DOS: 12/26/2016 MODIFIED BARIUM SWALLOW LOCATION: [facility], room 508, bed 1. DOCTOR: Dr. Mack. RADIOLOGIST: Dr. Kilgore. BACKGROUND INFORMATION: The patient is a 61-year-old man who was seen for a modified barium swallow. This test was ordered to rule out aspiration. The patient was admitted with chest pain and COPD exacerbation. This patient has a lengthy medical history significant for CAD, obstructive sleep apnea, major depressive disorder, neuropathy, IDDM, CHF, DE with stents defibrillator, chronic alcohol abuse, hepatitis C and history of neck surgery, cholecystectomy, right foot surgery and repair of left rotator cuff. The patient currently receives a regular diet and thin liquids. He reports that over the past 1-2 months, he has been experiencing liquids "backing up" when drinking and gagging on food. He also reports a weight loss of 30 pounds over the past month. For today's assessment, he was alert and able to follow commands. Respiratory status was congested. Hoarse vocal quality was noted. Oral peripheral examination revealed presence of upper and lower denture with adequate fit reported. Lingual, labial, and buccal skills were within normal limits in terms of strength, range of motion, and coordination. The patient was able to volitionally cough and swallow. METHODS AND MATERIALS USED FOR THE EXAM: The patient was positioned in the lateral plane and the examination was viewed under fluoroscopy. The patient was presented with a variety of consistencies to assess swallowing skills including applesauce mixed with barium presented in half teaspoon amounts, barium-coated banana and bread taken in bite size pieces and thin liquid barium presented by cup and straw. ORAL PHASE: Unremarkable. PHARYNGEAL PHASE: The pharyngeal swallow occurred within a timely manner. During the swallow, laryngeal elevation and epiglottic function were within normal limits with no penetration or aspiration occurring with any consistency. A mild amount of residue post-swallow was observed with solid consistencies. The patient was aware of this and independently cleared this with subsequent swallow. ESOPHAGEAL PHASE: This phase of the swallow was not formally assessed during this examination. IMPRESSIONS AND RECOMMENDATIONS: Based upon assessment results, this 61-year-old patient displayed a safe swallow for pureed, solid foods and thin liquids by cup and straw. No penetration or aspiration was detected. Mild residue in the vallecula was noted with solids; however, the patient cleared it [place], [place] PROCEDURE NOTE NAME: MAKSIM SMILEY UNIT #: [id number] ROOM: 508 DOCTOR: CALLUM TANNER BIRTHDATE: [birth year] independently with subsequent swallow. Recommend the patient remain on regular diet and thin liquids. Recommend use of safe swallow strategies such as small bites and sips, chewing thoroughly, alternating liquids and solids and use of double swallows as needed. The patient and his nurse were educated on results and recommendations and verbalized understanding. Short term followup therapy for 1-2 visits is recommended to ensure safety with diet and compliance of safety strategies. Thank you very much for this referral. Should you have any questions regarding this patient, please contact the speech pathologist at [phone]. CALLUM TANNER CM:PROCNOTE:PROCEDURE NOTE 1045 [id number] CALLUM TANNER
[~2016-12-22 20:21] MED LIST changes: +CEPHALEXIN500 M1 PO; +DIFLUCAN150 MG PO; +MIRTAZAPINE30 M1 PO; +NYSTATIN CREAM15 GM T
[2016-12-22 20:27] VITALS: BP 145/69
[2016-12-22 20:41] LABS: BASO % 0.5 % (0.0-1.0); EOS # 0.1 10*3/uL (0.0-0.4); EOS % 1.5 % (1.0-4.0); HEMATOCRIT 47.2 % (42.0-52.0); HEMOGLOBIN 15.4 g/dl (14.0-18.0); LYMPH # 2.5 10*3/uL (1.3-4.4); LYMPH % 34.1 % (27.0-41.0); MEAN CELL VOLUME 83.1 fl (80.0-94.0); MEAN CORPUSCULAR HGB 27.1 pg (27.0-31.0); MEAN CORPUSCULAR HGB CONC 32.6 g/dl (33.0-37.0); MEAN PLATELET VOLUME 13.1 fl (9.6-12.3); MONO # 0.8 10*3/uL (0.1-1.0); MONO % 10.2 % (3.0-9.0); NEUT % 53.4 % (47.0-73.0); PLATELET COUNT AUTOMATED 63 10*3/uL (130-400); RED BLOOD COUNT 5.68 10*6/uL (4.50-5.90); RED CELL DISTRI WIDTH 14.6 % (0-14.5); WHITE BLOOD COUNT 7.5 10*3/uL (4.8-10.8)
[2016-12-22 20:52] LABS: INTERNATIONAL NORM RATIO 1.1 (2.0-3.5); PROTHROMBIN TIME 11.7 SECONDS (9.0-12.4)
[2016-12-22 20:59] LABS: ALBUMIN 3.5 gm/dl (3.1-4.5); ALKALINE PHOSPHATASE 78 U/L (45-117); BILIRUBIN, TOTAL 0.4 mg/dl (0.2-1.0); BUN 10 mg/dl (7-24); CARBON DIOXIDE 19 mmol/L (21-32); CHLORIDE 102 mmol/L (98-107); EST GLOM FILT AFRICAN AMERICAN > 60 ml/min; POTASSIUM 3.7 mmol/L (3.5-5.1); SGOT/AST 25 IU/L (3-35); SGPT/ALT 34 U/L (12-78); SODIUM 137 mmol/L (136-145); TOTAL PROTEIN 7.5 gm/dL (6.4-8.2)
[2016-12-22 21:01] VITALS: BP 128/76
[2016-12-22 21:08] LABS: GLUCOSE 511 mg/dL (65-99); TROPONIN I < 0.015 ng/ml (<0.045)
[2016-12-22 22:55] VITALS: BP 123/77
[2016-12-22 23:33] VITALS: BP 125/72
[2016-12-23 04:00] VITALS: BP 125/70
[2016-12-23 07:25] LABS: HEMATOCRIT 44.6 % (42.0-52.0); HEMOGLOBIN 14.8 g/dl (14.0-18.0); MEAN CELL VOLUME 82.7 fl (80.0-94.0); MEAN CORPUSCULAR HGB 27.5 pg (27.0-31.0); MEAN CORPUSCULAR HGB CONC 33.2 g/dl (33.0-37.0); PLATELET COUNT AUTOMATED 51 10*3/uL (130-400); RED BLOOD COUNT 5.39 10*6/uL (4.50-5.90); RED CELL DISTRI WIDTH 14.5 % (0-14.5)
[2016-12-23 07:44] LABS: BASOPHIL # 0.1 10*3/uL (0-0.1); BASOPHILS 1 % (0-1); EOSINOPHIL # 0.1 10*3/uL (0-0.4); EOSINOPHILS 2 % (1-4); LYMPHOCYTE # 2.3 10*3/uL (1.3-4.4); MONOCYTE # 0.5 10*3/uL (0.1-1.0); NEUTROPHILS 50 % (47-73); PLATELET SUFFICIENCY LOW (NORMAL); TOTAL CELLS COUNTED 100 #CELLS
[2016-12-23 07:45] LABS: ALBUMIN 3.3 gm/dl (3.1-4.5); ALKALINE PHOSPHATASE 73 U/L (45-117); BILIRUBIN, TOTAL 0.6 mg/dl (0.2-1.0); BUN 10 mg/dl (7-24); CARBON DIOXIDE 25 mmol/L (21-32); CHLORIDE 109 mmol/L (98-107); EST GLOM FILT AFRICAN AMERICAN > 60 ml/min; FREE T4 0.92 ng/dl (0.76-1.46); GLUCOSE 325 mg/dL (65-99); MAGNESIUM 1.8 mg/dL (1.5-2.1); PHOSPHOROUS 3.2 mg/dL (2.5-4.9); POTASSIUM 3.7 mmol/L (3.5-5.1); SGOT/AST 23 IU/L (3-35); SGPT/ALT 32 U/L (12-78); SODIUM 140 mmol/L (136-145); TOTAL PROTEIN 6.7 gm/dL (6.4-8.2)
[2016-12-23 07:48] LABS: INTERNATIONAL NORM RATIO 1.1 (2.0-3.5); PROTHROMBIN TIME 11.9 SECONDS (9.0-12.4)
[2016-12-23 07:49] LABS: THYROID STIM HORMONE (HS) 0.867 uIU/ml (0.358-4.75)
[2016-12-23 07:55] LABS: CKMB 0.8 ng/ml (0.5-3.6)
[2016-12-23 07:56] LABS: TROPONIN I < 0.015 ng/ml (<0.045)
[2016-12-23 08:00] VITALS: BP 125/70; BP 132/84
[2016-12-23 08:52] LABS: HEMOGLOBIN A1c 11.6 % (4.8-5.6)
[2016-12-23 10:43] LABS: FOLIC ACID 15.26 ng/mL (>5.38)
[2016-12-23 12:00] VITALS: BP 121/67
[2016-12-23 12:23] LABS: CKMB 0.5 ng/ml (0.5-3.6)
[2016-12-23 12:25] LABS: TROPONIN I < 0.015 ng/ml (<0.045)
[2016-12-23 16:00] VITALS: BP 105/67
[2016-12-23 18:52] LABS: CKMB < 0.5 ng/ml (0.5-3.6); TROPONIN I < 0.015 ng/ml (<0.045)
[2016-12-23 20:00] VITALS: BP 129/66
[2016-12-24] VITALS: BP 128/71
[2016-12-24 08:00] VITALS: BP 134/65
[2016-12-24 12:00] VITALS: BP 130/60; BP 130/75
[2016-12-24 16:00] VITALS: BP 113/61
[2016-12-24 20:00] VITALS: BP 112/66
[2016-12-25] VITALS: BP 133/68
[2016-12-25 08:00] VITALS: BP 136/74
[2016-12-25 12:00] VITALS: BP 111/68
[2016-12-25 16:00] VITALS: BP 123/75
[2016-12-25 20:00] VITALS: BP 117/64
[2016-12-26] VITALS: BP 119/73
[2016-12-26 07:35] LABS: BASO % 0.1 % (0.0-1.0); EOS % 0.4 % (1.0-4.0); HEMATOCRIT 44.6 % (42.0-52.0); HEMOGLOBIN 14.9 g/dl (14.0-18.0); LYMPH # 2.3 10*3/uL (1.3-4.4); LYMPH % 28.1 % (27.0-41.0); MEAN CELL VOLUME 82.1 fl (80.0-94.0); MEAN CORPUSCULAR HGB 27.4 pg (27.0-31.0); MEAN CORPUSCULAR HGB CONC 33.4 g/dl (33.0-37.0); MEAN PLATELET VOLUME 12.6 fl (9.6-12.3); MONO # 0.7 10*3/uL (0.1-1.0); MONO % 8.5 % (3.0-9.0); NEUT # 5.1 10*3/uL (2.3-7.9); NEUT % 62.7 % (47.0-73.0); PLATELET COUNT AUTOMATED 50 10*3/uL (130-400); RED BLOOD COUNT 5.43 10*6/uL (4.50-5.90); RED CELL DISTRI WIDTH 15.1 % (0-14.5); WHITE BLOOD COUNT 8.2 10*3/uL (4.8-10.8)
[2016-12-26 07:58] LABS: BUN 12 mg/dl (7-24); EST GLOM FILT AFRICAN AMERICAN > 60 ml/min
[2016-12-26 08:00] VITALS: BP 165/70; BP 165/72
[2016-12-26] MEDS ORDERED: OMEPRAZOLE D/R20 MG PO (10:58)
[2016-12-26] MEDS ORDERED: LEVEMIR10 ML SC (10:58)
[2016-12-26 12:00] VITALS: BP 131/74
[2016-12-26] MEDS ORDERED: PREDNISONE50 MG PO (12:00)
[2016-12-26] MEDS ORDERED: TESSALON PERLE100 M1 PO (12:10)
[2016-12-26] MEDS ORDERED: ACETAMINOPHEN-H1 TA2 PO (12:13)
== END 2016-12-26 13:28 | disposition home health service (06) | DRG 391 ==
LOC: ED 20:21 → 5E 22:20 → EDHOLD 22:20 → 5E 22:48
PROVIDERS: Emergency Medicine Emergency Medical Services; Internal Medicine
PROC: BD11YZZ Fluoroscopy of Esophagus using Other Contrast (ICD-10-PCS; principal; 2016-12-26)
DX: K21.9 Gastro-esophageal reflux disease without esophagitis (principal); E11.00 Type 2 diabetes mellitus with hyperosmolarity without nonketotic hyperglycemic-hyperosmolar coma (NKHHC); E11.40 Type 2 diabetes mellitus with diabetic neuropathy, unspecified; F33.2 Major depressive disorder, recurrent severe without psychotic features; E44.0 Moderate protein-calorie malnutrition; J44.1 Chronic obstructive pulmonary disease with (acute) exacerbation; D69.6 Thrombocytopenia, unspecified; I50.22 Chronic systolic (congestive) heart failure; I11.0 Hypertensive heart disease with heart failure; L02.214 Cutaneous abscess of groin; E66.01 Morbid (severe) obesity due to excess calories; L30.4 Erythema intertrigo; I25.10 Atherosclerotic heart disease of native coronary artery without angina pectoris; G47.33 Obstructive sleep apnea (adult) (pediatric); F17.210 Nicotine dependence, cigarettes, uncomplicated; E55.9 Vitamin D deficiency, unspecified; M1A.9XX0 Chronic gout, unspecified, without tophus (tophi); B18.2 Chronic viral hepatitis C; F41.1 Generalized anxiety disorder; E78.5 Hyperlipidemia, unspecified; M54.5 Low back pain; K70.30 Alcoholic cirrhosis of liver without ascites; I25.5 Ischemic cardiomyopathy; I87.2 Venous insufficiency (chronic) (peripheral); Z90.49 Acquired absence of other specified parts of digestive tract; Z95.810 Presence of automatic (implantable) cardiac defibrillator; I25.2 Old myocardial infarction; Z95.5 Presence of coronary angioplasty implant and graft; Z82.49 Family history of ischemic heart disease and other diseases of the circulatory system; Z84.1 Family history of disorders of kidney and ureter; Z88.0 Allergy status to penicillin; Z88.1 Allergy status to other antibiotic agents; Z79.4 Long term (current) use of insulin; Z79.899 Other long term (current) drug therapy; Z83.3 Family history of diabetes mellitus; Z68.28 Body mass index [BMI] 28.0-28.9, adult

== ENCOUNTER → 2016-12-31 | Outpatient (CLI) | payer OTHER ==
[~2016-12-31] MED LIST changes: +ACETAMINOPHEN-H1 TA2 PO; +PREDNISONE50 MG PO; +TESSALON PERLE100 M1 PO
== END | disposition home or self-care (01) ==
LOC: RESCLI 03:47
DX: I11.0 Hypertensive heart disease with heart failure (principal); E11.65 Type 2 diabetes mellitus with hyperglycemia; I50.42 Chronic combined systolic (congestive) and diastolic (congestive) heart failure; J44.0 Chronic obstructive pulmonary disease with (acute) lower respiratory infection; I25.10 Atherosclerotic heart disease of native coronary artery without angina pectoris; K74.60 Unspecified cirrhosis of liver; F41.9 Anxiety disorder, unspecified; E78.5 Hyperlipidemia, unspecified; K22.9 Disease of esophagus, unspecified; G89.4 Chronic pain syndrome; Z72.0 Tobacco use; Z71.6 Tobacco abuse counseling

== ENCOUNTER → 2017-02-06 | Outpatient (CLI) | payer OTHER | END | disposition home or self-care (01) | LOC: RAD 12:52 | DX: M51.36 Other intervertebral disc degeneration, lumbar region (principal); M48.54XA Collapsed vertebra, not elsewhere classified, thoracic region, initial encounter for fracture; M48.07 Spinal stenosis, lumbosacral region; M54.17 Radiculopathy, lumbosacral region; M47.897 Other spondylosis, lumbosacral region ==

== ENCOUNTER 2017-02-19 14:57 | Emergency (ER) | payer OTHER ==
[~2017-02-19] VITALS: Ht 177.8 cm; Wt 108.9 kg
[2017-02-19 11:32] LABS: BASO % 0.6 % (0.0-1.0); EOS # 0.1 10*3/uL (0.0-0.4); EOS % 1.9 % (1.0-4.0); HEMATOCRIT 47.6 % (42.0-52.0); HEMOGLOBIN 15.5 g/dl (14.0-18.0); LYMPH # 1.6 10*3/uL (1.3-4.4); MEAN CELL VOLUME 84.2 fl (80.0-94.0); MEAN CORPUSCULAR HGB 27.4 pg (27.0-31.0); MEAN CORPUSCULAR HGB CONC 32.6 g/dl (33.0-37.0); MONO # 0.6 10*3/uL (0.1-1.0); MONO % 9.4 % (3.0-9.0); NEUT % 62.9 % (47.0-73.0); PLATELET COUNT AUTOMATED 63 10*3/uL (130-400); RED BLOOD COUNT 5.65 10*6/uL (4.50-5.90); RED CELL DISTRI WIDTH 15.8 % (0-14.5); WHITE BLOOD COUNT 6.3 10*3/uL (4.8-10.8)
[2017-02-19 11:58] LABS: ALBUMIN 3.4 gm/dl (3.1-4.5); ALKALINE PHOSPHATASE 90 U/L (45-117); BILIRUBIN, TOTAL 0.7 mg/dl (0.2-1.0); BUN 10 mg/dl (7-24); CARBON DIOXIDE 26 mmol/L (21-32); CHLORIDE 103 mmol/L (98-107); EST GLOM FILT AFRICAN AMERICAN > 60 ml/min; GLUCOSE 402 mg/dL (65-99); POTASSIUM 4.6 mmol/L (3.5-5.1); SGOT/AST 27 IU/L (3-35); SGPT/ALT 32 U/L (12-78); SODIUM 139 mmol/L (136-145); TOTAL PROTEIN 7.8 gm/dL (6.4-8.2)
[2017-02-19 15:08] VITALS: BP 172/100
[2017-02-19 15:45] LABS: INTERNATIONAL NORM RATIO 1.1 (2.0-3.5)
[2017-02-19] MEDS ORDERED: XARELTO STARTER20 MG PO (16:01)
== END 2017-02-19 16:13 | disposition home or self-care (01) ==
LOC: ED 14:58 → EDHOLD 15:43 → ED 15:43 → 4E 16:32 → EDHOLD 16:32 → RESCLI 21:59
PROVIDERS: Internal Medicine; Nurse Practitioner Family
DX: I82.401 Acute embolism and thrombosis of unspecified deep veins of right lower extremity (principal); D69.6 Thrombocytopenia, unspecified; R73.9 Hyperglycemia, unspecified; I11.0 Hypertensive heart disease with heart failure; I50.20 Unspecified systolic (congestive) heart failure; I25.10 Atherosclerotic heart disease of native coronary artery without angina pectoris; J44.9 Chronic obstructive pulmonary disease, unspecified; K21.9 Gastro-esophageal reflux disease without esophagitis; M1A.9XX0 Chronic gout, unspecified, without tophus (tophi); D53.9 Nutritional anemia, unspecified; E11.40 Type 2 diabetes mellitus with diabetic neuropathy, unspecified; F17.200 Nicotine dependence, unspecified, uncomplicated; Z88.0 Allergy status to penicillin; Z88.1 Allergy status to other antibiotic agents; Z88.8 Allergy status to other drugs, medicaments and biological substances; Z79.899 Other long term (current) drug therapy; Z79.4 Long term (current) use of insulin

== ENCOUNTER → 2017-03-04 | Outpatient (CLI) | payer OTHER ==
[~2017-03-04] MED LIST changes: +XARELTO STARTER20 MG PO
== END | disposition home or self-care (01) ==
LOC: RAD 09:06
DX: R19.7 Diarrhea, unspecified (principal); R15.9 Full incontinence of feces; Z90.49 Acquired absence of other specified parts of digestive tract

== ENCOUNTER 2017-05-01 14:11 | Inpatient (IN) | payer OTHER ==
[~2017-05-01] VITALS: Ht 177.8 cm; Wt 60.1 kg
--- NOTE | ~2017-05-01 | PR ---
[place], [place] PROGRESS NOTE NAME: MAKSIM SMILEY UNIT #: [id number] ROOM: 407 DOCTOR: TWYLA SUGGS MD,WILLA BIRTHDATE: [birth year] DOS: 05/03/2017 SUBJECTIVE: He has been noted reduction of acute respiratory complaints at this time. Denies symptoms of chest pain or any abdominal pain. The patient's sputum culture has been noted with evidence of moderate growth of gram-negative bacilli. He has not been noted symptoms of chest pain or any abdominal pain. He stated that he had not using his BiPAP from home and would like to be started here for the medical management previously known obstructive sleep apnea disorder. OBJECTIVE: VITAL SIGNS: Normal temperature, respiratory rate 18, heart rate 67, blood pressure 129/78. Pulse oxygen saturation on room air is 95% saturation. HEENT: Chronic ____. NECK: Supple. CARDIOVASCULAR: S1 and S2 audible. LUNGS: Noted moderate decreased breath sounds. Occasional wheezing and crackles. ABDOMEN: Soft, nontender. LABORATORY DATA: Culture of the sputum of 97 light growth of gram-negative bacilli. Gram stain many white blood cell, few gram-positive cocci, few gram-positive cocci in pairs. BMP this morning, glucose 240, BUN and creatinine was normal. CBC: WBC count 11.2, hemoglobin 13.9, hematocrit 41.8, and platelet count 55,000. IMPRESSION: 1. History of liver cirrhosis. 2. Chronic thrombocytopenia. 3. History of obstructive sleep apnea disorder. 4. Severely uncontrolled diabetes mellitus, which has been resolving. 5. History of chronic respiratory failure. 6. Possibility of atypical infection in the lungs as well, rule out Mycobacterium avium complex infection with similar infections. PLAN OF TREATMENT: We will start the patient BiPAP to be used at nighttime with setting of 16/10 and maintain saturation 92% or greater with backup respiratory rate of 8 for nighttime use. Continuation of current dose of corticosteroids. Continue bronchodilators. Sputum for acid fast bacillus has been ordered and two of the sputum have already done sent to the laboratory with pending results. Continuation of current antibiotics. Usual care. Supportive plan and management and care. Addition treatment changes will be done based on the progression of the illness. [place], [place] PROGRESS NOTE NAME: MAKSIM SMILEY UNIT #: [id number] ROOM: [facility] DOCTOR: WILLA MENEZES MD BIRTHDATE: [birth year] WILLA WAKEFIELD MD CM:PNTRANS [id number] WILLA SUGGS MD 05/04/17 2245 interface
--- NOTE | ~2017-05-01 | PR ---
[place], [place] PROGRESS NOTE NAME: MAKSIM SMILEY UNIT #: [id number] ROOM: 407 DOCTOR: WILLA MENEZES MD BIRTHDATE: [birth year] DOS: 05/04/2017 SUBJECTIVE: He has been treated in telemetry floor. Reduction of the respiratory symptom was described. The patient denies any symptoms of chest pain or any abdominal pain. Shortness breath, the symptoms of the patient has been resolving. OBJECTIVE: VITAL SIGNS: Showed normal temperature, respirations 18, heart rate 62, blood pressure 128/72. Pulse oxygen saturation on room air was 97% saturation. HEENT: Examination shows no new change. NECK: Supple. CARDIOVASCULAR: S1, S2 audible. LUNGS: Noted with moderate decreased breath sounds bilaterally. ABDOMEN: Soft, obese, nontender. EXTREMITIES: Shows chronic obesity with edema. LABORATORY DATA: CBC today was noted, platelet count 51,000; otherwise, CBC normal. CMP this morning, glucose 219, BUN and creatinine was normal. IMPRESSION: 1. The patient with resolving acute tracheobronchitis with acute pneumonia with tree-in-bud appearance and the nodule formation in the right upper lung with gram-negative infection, which has been isolated as Klebsiella oxytoca, noted sensitive to multiple antibiotics. 2. The patient with acute exacerbation of bronchial asthma. 3. Obstructive sleep apnea disorder. 4. Chronic liver cirrhosis and thrombocytopenia. PLAN OF TREATMENT: Continuation of the bronchodilators, oxygen supplementation, corticosteroid, and use of the BiPAP. Antibiotic adjustment for the patient based on the current culture results. The patient has been noted organism Klebsiella oxytoca currently noted sensitive to doxycycline/tetracycline, which is already being administered. [place], [place] PROGRESS NOTE NAME: MAKSIM SMILEY UNIT #: [id number] ROOM: 407 DOCTOR: WILLA MENEZES MD BIRTHDATE: [birth year] WILLA WAKEFIELD MD CM:PNTRANS [id number] WILLA SUGGS MD 05/05/17 0635 interface
--- NOTE | ~2017-05-01 | CON ---
[place], [place] REPORT OF CONSULTATION NAME: MAKSIM SMILEY UNIT #: [id number] ROOM: [facility] DOCTOR: WILLA MENEZES MD BIRTHDATE: [birth year] DOS: 05/02/2017 ADDENDUM NOTE TO THE CONSULTATION: The patient was seen with [id number] encounter, history was confirmed for this patient personally. Physical examination performed. All the labs were reviewed. The recommendation and changes in treatment that accurately reflects my personal decision made for this patient for today's consultation. Assessment was personally made for this patient for today's consultation as well. The note done by the medical laboratory technical officer was approved. HISTORY OF PRESENT ILLNESS: This is a 61-year-old white male who has been known to me with history of recurrent hospitalization in the past for exacerbation of bronchial asthma with history of noncompliance and chronic tobacco use. He was also known with history of obstructive sleep apnea disorder. The patient has not been seen in my office for the past several months. He presented from home for this patient to the hospital on 05/01/2017 with symptoms of shortness of breath. The patient stated the shortness of breath has been noted gradually worsening. He did develop cough with some sputum expectoration. The patient was also noticed severe hyperglycemia. Blood glucose more than 500. He stated that he fell down at home, but did not report any acute major injury to bone or other parts of the body. He denies any symptoms of chest pain. Denies symptoms of hemoptysis. The patient denies symptoms of gastroesophageal reflux or any abdominal pain. Denies any diarrhea. Denies skin lesions, syncopal episode or seizures. Denies any symptoms of urinary retention or hematuria. PAST MEDICAL HISTORY: Noted as uncomplicated severe persistent bronchial asthma, type 2 diabetes mellitus, morbid obesity, chronic right-sided musculoskeletal pain, intervertebral disk disease of the lumbar spine, nicotine dependence, obstructive sleep apnea disorder, noncompliance with treatment, hyperlipidemia, idiopathic neuropathy, hepatitis C, type 2 diabetes mellitus, history of gout, cardiomyopathy with systolic dysfunction, frequent hospitalization and others, history of liver cirrhosis, chronic thrombocytopenia. PAST SURGICAL HISTORY: Reported as cervical fusion, rotator cuff surgery, cholecystectomy, past therapeutic bronchoscopies, past bronchoscopy with last bronchoscopy done in 2015. FAMILY HISTORY: The patient was noted remarkable for heart problems and acute kidney failure. SOCIAL HISTORY: The patient is currently single, lives with the girlfriend. Denies any history of alcohol, illicit drug use. Tobacco use was noted, chronic tobacco use 1 pack of cigarettes per day. The patient stated that he actively roll his own cigarettes and smokes them. DRUG ALLERGIES: Reported for ____, AMOXICILLIN, LEVAQUIN and NEURONTIN. MEDICATIONS: Administered the patient were noted use of trazodone, Protonix, [place], [place] REPORT OF CONSULTATION NAME: MAKSIM SMILEY UNIT #: [id number] ROOM: [facility] DOCTOR: TWYLA SUGGS [facility] BIRTHDATE: [birth year] Mucinex 1200 b.i.d., Solu-Medrol 600 mg every 8 hours, insulin drip, Buspar, doxycycline, Rocephin and other p.r.n. medications administration. PHYSICAL EXAMINATION: GENERAL: This 61-year-old male who has been noted currently without any acute distress at this time. VITAL SIGNS: Height was noted 5 feet 10 inches, weight of 31.5 pounds. Vital signs show temperature normal, respiratory rate 18, heart rate 70, blood pressure 132/70. Pulse oxygen saturation on room air was 93% saturation. HEENT: Chronic severe obesity. Head was atraumatic. Eyes, nonicterus. NECK: Supple. CARDIOVASCULAR: S1, S2 is audible. LUNGS: The patient noted with general reduction in the breath sounds bilaterally with occasional wheezing. ABDOMEN: Noted chronic severe obesity. Bowel sounds are present. EXTREMITIES: The patient was noted without any edema. Chronic obesity. SKIN: No lesions or rashes. MUSCULOSKELETAL: No deformities. LABORATORY DATA: CBC with WBC count mildly elevated at 12.5, hemoglobin 17, hematocrit 49.5, platelet count 88,000. PT/PTT 9 and 7 normal. Ketone noted positive in serum ____ dilution. CMP on 05/01/2017 glucose 589. BUN normal, creatinine was normal. Sodium 128, chloride 94, normal anion gap was also noted. Arterial blood gas, pH 7.40, pO2 38 which actually is a venous gas. Lactic acid of 05/01/2017 was 2.9. CBC that was done this morning shows platelet count 65,000, otherwise normal CBC. BMP: Glucose 222. BUN and creatinine was normal. Phosphorus 1.7. Chest x-ray does not show any acute abnormality as was personally reviewed on 05/01/2017. CT scan 05/01/2017 shows a small nodular density noted in the right upper lung with tree-in-bud appearance noted cluster of nodule close to subpleural distribution in the right upper lobe. There was no significant lymphadenopathy noted. Large amount of fat were noted in the mediastinum. Hepatic cirrhosis of the liver was described by the radiologist. Left adrenal gland was noted benign adenoma, size 1.2 x 4.1 cm in size. IMPRESSION: 1. The patient who has been currently admitted to the hospital, severely uncontrolled diabetes mellitus with acute bronchitis with some exacerbation of bronchial asthma. 2. Abnormality in the CT scan suggested possibility of atypical infection, certainly not noted consistent with evidence of acute pneumonia. 3. Severely uncontrolled hyperglycemia and ____ noted most likely lack of oral intake, possibly lack of medications use. 4. Cirrhosis of the liver noted chronic thrombocytopenia with intermittent variable levels. 5. History of chronic respiratory failure which has been known as well. PLAN OF TREATMENT: The patient will be continued on the doxycycline. The Rocephin will be discontinued. Reduce Solu-Medrol to 40 mg daily because of severe hyperglycemia, lack of any wheezing at this time. Obtain the sputum for [place], [place] REPORT OF CONSULTATION NAME: MAKSIM SMILEY UNIT #: [id number] ROOM: [facility] DOCTOR: TWYLA SUGGS MD,[facility] BIRTHDATE: [birth year] Gram stain and culture. Use of the BiPAP, the patient willing to do that. Otherwise, titrate the oxygen to maintain 92% or greater. Ordered nicotine replacement patches as well. Other supportive treatment, plan of management and other therapies as in progress. Additional treatment changes will be done based on the progression of the illness. The patient has a previous two bronchoscopy done, which has been isolated, known tuberculous mycobacterial infection and Streptomyces in the past of unknown clinical significance. There was no isolation of any organ such as Mycobacterium avium intracellulare or other which caused pulmonary infection. Sputum for acid fast bacillus smear and cultures will be ordered 3 sputum specimens. If necessary, bronchoscopy performed as well. Continue aggressive medical and severe hyperglycemia. Significant reduction of Solu-Medrol will also result in improvement in the severe hypoglycemia as well. Usual care, other supportive plan of therapy and care. Thanks for allowing me to participate in the care of this patient. WILLA WAKEFIELD MD CM:CONSTR:REPORT OF CONSULTATION 1056 05/03/17 0610 interface
--- NOTE | ~2017-05-01 | CON ---
[place], [place] REPORT OF CONSULTATION NAME: MAKSIM SMILEY [facility] #: [id number] UNIT #: [id number] ROOM: [facility] DOCTOR: MARGOT AMBROCIO DO BIRTHDATE: [birth year] DOS: REASON FOR CONSULTATION: Pneumonia. CHIEF COMPLAINT: Shortness of breath. HISTORY OF PRESENT ILLNESS: This is a 61-year-old male who presented to [facility] with chief complaint of shortness of breath that has been going on for the past 3 days. He also has fever, chills, malaise and productive cough associated with it. He says he is bringing out yellowish phlegm and also having shortness of breath without exertion. The patient denies any recent travel out of country. The patient denies any sick contacts recently. The patient states he has history of COPD and his shortness of breath has been worsening for the last few days and decided to come to the ER. In the ER, he had a chest x-ray done which showed emphysematous change without acute process. His glucose was elevated in 500 and was started on insulin drip. PAST MEDICAL HISTORY: Alcohol abuse, coronary artery disease, chronic low back pain, chronic venous insufficiency, COPD, dyslipidemia, generalized anxiety disorder, GERD, gout, hemorrhoids, hypertension, insulin-dependent type 2 diabetes, morbid obesity, obstructive sleep apnea, metabolic syndrome, splenomegaly, tobacco abuse, systolic congestive heart failure. PAST SURGICAL HISTORY: History of neck surgery, history of cardiac catheterization, history of coronary artery placement, history of arthroscopy of right knee, history of cholecystectomy, history of repair of left rotator cuff. SOCIAL HISTORY: The patient denies any illicit drug use. The patient drinks hard liquor. Tobacco use, patient smokes half pack per day and has been smoking for 25 years. FAMILY HISTORY: Mother at age 60 due to myocardial infarction and diabetes. Father at age 60 due to renal failure. ALLERGIES: PENICILLIN, LEVOFLOXACIN, AMOXICILLIN, GABAPENTIN, OFLOXACIN. HOME MEDICATIONS: 1. Ventolin HFA. 2. Ascorbic acid 500 mg p.o. b.i.d. 3. Baclofen 10 mg p.o. at bedtime. 4. Symbicort 2 puff inhaled b.i.d. 5. BuSpar 15 mg p.o. t.i.d. 6. Coreg 12.5 mg p.o. b.i.d. 7. Diclofenac sodium 75 mg p.o. b.i.d. 8. Vitamin D 50,000 International Unit p.o. Friday. 9. Ferrous fumarate 325 mg p.o. b.i.d. 10. Lasix 80 mg p.o. daily. 11. Hydroxyzine 50 mg p.o. t.i.d. 12. Insulin aspart, 1 unit subcutaneous a.c. and bedtime. 13. Insulin Levemir 80 units subq at 7:30. [place], [place] REPORT OF CONSULTATION NAME: MAKSIM SMILEY UNIT #: [id number] ROOM: [facility] DOCTOR: MARGOT AMBROCIO DO BIRTHDATE: [birth year] 14. Insulin glargine 100 units subq at night. 15. DuoNeb 3 mL nebulizer q.6 hours. 16. Isosorbide mononitrate 30 mg p.o. daily. 17. Lactulose 10 mg p.o. as needed. 18. Robaxin 750 mg p.o. t.i.d. 19. Mirtazapine 30 mg p.o. at bedtime. 20. Olanzapine 10 mg p.o. at bedtime. 21. Nabumetone 750 mg p.o. b.i.d. 22. Potassium chloride 10 mEq p.o. daily. 23. Lyrica 100 mg p.o. twice a day. 24. Xarelto 20 mg p.o. 25. Ultram 100 mg p.o. 3 times a day. 26. Trazodone 50 mg p.o. at night. REVIEW OF SYSTEMS: GENERAL: Reports fever, chills, weight gain. Denies weight loss. HEENT: Reports nose congestion. Denies hearing loss or vision changes or eye pain. CARDIOVASCULAR: Reports lower extremity edema. Denies chest pain, palpitations, diaphoresis. RESPIRATORY: Denies hemoptysis. Reports shortness of breath, cough, wheezing, dyspnea on exertion, and sputum production. ABDOMEN: Reports nausea. Denies vomiting, diarrhea, abdominal pain or any appetite loss. GENITOURINARY: Reports dysuria, denies hematuria or change in frequency. NEUROLOGIC: Denies lightheadedness, dizziness, confusion. PSYCHIATRIC: Denies depression, anxiety, substance abuse. ENDOCRINE: Denies heat or cold intolerance or polydipsia. SKIN: Denies ulcers. Reports new rashes in groin. PHYSICAL EXAMINATION: VITAL SIGNS: Temperature of 98.1, pulse of 70, respiratory rate of 16, blood pressure of 132/70, pulse ox of 93 on room air. GENERAL APPEARANCE: Alert, awake, responsive, mild distress. HEENT: Normocephalic, atraumatic. No lesions, no ulcerations, nonicteric, no drainage. Nasal mucosa and oral mucosa moist. NECK: No lesions, no masses, no ulcerations. Trachea midline, supple and nontender. HEART: Regular rate and rhythm. No gallop, no murmurs. Trace lower extremity edema. LUNGS: Diminished at the bases. Mild expiratory rhonchi, soft audible coarse breathing. ABDOMEN: Soft, positive bowel sounds, nontender, nondistended, obese abdomen. EXTREMITIES: Trace edema. No clubbing, cyanosis or erythema. NEUROLOGIC: Grossly intact. No focal neurological deficit. SKIN: Warm and dry. No ulceration, no lesion. Skin folds in groin area are erythematous. LABORATORY DATA: CBC on 05/01/2017 reported white blood cell count of 12.5, hemoglobin of 17, platelet count of 88. CBC 05/02/2017 shows white cell count [place], [place] REPORT OF CONSULTATION NAME: MAKSIM SMILEY UNIT #: [id number] ROOM: [facility] DOCTOR: MARGOT AMBROCIO DO BIRTHDATE: [birth year] of 6.2, hemoglobin of 15, platelet count of 65. Chemistry on 05/02/2017 shows sodium of 140, potassium of 3.5, creatinine of 0.98, BUN of 17, glucose of 222, glucose of 589 was reported on 05/01/2017. Fluid culture pending. Serology pending. Urine culture negative. Toxicology showed acetone level positive. Blood culture, sputum culture and Gram stain are pending at this time. IMAGING: Chest x-ray done on 05/01/2017 showed emphysematous changes without acute process. CT chest done on 05/01/2017 showed diffuse mild bronchial wall thickening, greater in the right lung; small tree-in-bud nodular density, most notably in the inferior aspect of the right upper lobe consistent with atypical infectious process including atypical mycobacterium; development of 6 x 7 mm ground glass nodular focus with possible central cavitation in inferior right lobe, this is probably infectious inflammatory process; severe hepatic cirrhosis; coronary artery atherosclerotic disease. ASSESSMENT AND PLAN: Please refer to Dr. Wakefield's note for assessment and plan. Thank you for the consultation. MARGOT AMBROCIO DO WILLA WAKEFIELD MD CM:CONSTR:REPORT OF CONSULTATION 1059 05/02/17 1530 interface
--- NOTE | ~2017-05-01 | PR ---
[place], [place] PROGRESS NOTE NAME: [facility]MI[id number] UNIT #: [id number] ROOM: 407 DOCTOR: TWYLA SUGGS MD,WILLA BIRTHDATE: [birth year] DOS: 05/05/2017 SUBJECTIVE: He has been showing progressive reduction and improvement in the respiratory symptom. Denies symptoms of chest pain or abdominal pain. The patient denies any symptoms of hemoptysis. OBJECTIVE: VITAL SIGNS: Normal temperature, respirations 18, heart rate 62, blood pressure 137/77. The pulse oxygen saturation was noted as 98% saturation on room air. HEENT: Shows no acute change. NECK: Supple. Chronic obesity. CARDIOVASCULAR: S1, S2 audible. LUNGS: Clear of any wheezing or crackles. ABDOMEN: Soft, nontender. EXTREMITIES: Shows resolving edema. LABORATORY DATA: Acid fast bacillus to specimen on 05/03/2017 were noted negative. Culture results pending. CMP today, glucose 162. Other electrolytes grossly normal. CBC this morning was noted as normal. IMPRESSION: 1. Resolving acute tracheobronchitis with Klebsiella Oxytoca and exacerbation of chronic obstructive pulmonary disease. 2. History of chronic nicotine dependence as well as obstructive sleep apnea disorder. Rule out Mycobacterium, nontuberculous infection of the lung. PLAN OF TREATMENT: Monitor culture results. The patient could be discharged home today on tapering prednisone, oral antibiotics. Tobacco cessation was addressed with the patient. He was advised about getting an appointment in my office for followup since he has not been seen in my office for a while. WILLA WAKEFIELD MD CM:PNTRANS [id number] WILLA SUGGS MD 05/06/17 0319 interface
[~2017-05-01 14:11] MED LIST changes: +BUSPAR15 MG PO; -BUSPAR5 MG PO; +LANTUS SOL100 UNIT/1 SC; +PROAIR HFA8.5 GM INH; +TRAMADOL HCL50 MG PO
[2017-05-01 14:20] VITALS: BP 127/79
[2017-05-01 14:56] LABS: BASO # 0.1 10*3/uL (0.0-0.1); BASO % 0.5 % (0.0-1.0); EOS # 0.2 10*3/uL (0.0-0.4); EOS % 1.3 % (1.0-4.0); HEMATOCRIT 49.5 % (42.0-52.0); LYMPH # 3.1 10*3/uL (1.3-4.4); MEAN CELL VOLUME 82.2 fl (80.0-94.0); MEAN CORPUSCULAR HGB 28.2 pg (27.0-31.0); MEAN CORPUSCULAR HGB CONC 34.3 g/dl (33.0-37.0); MEAN PLATELET VOLUME 14.2 fl (9.6-12.3); MONO # 1.1 10*3/uL (0.1-1.0); NEUT % 63.9 % (47.0-73.0); PLATELET COUNT AUTOMATED 88 10*3/uL (130-400); RED BLOOD COUNT 6.02 10*6/uL (4.50-5.90); RED CELL DISTRI WIDTH 13.8 % (0-14.5); WHITE BLOOD COUNT 12.5 10*3/uL (4.8-10.8)
[2017-05-01 15:06] LABS: ACT PARTIAL THROMBO TIME 22.7 SECONDS (20.8-31.5); INTERNATIONAL NORM RATIO 1.1 (2.0-3.5)
[2017-05-01 15:13] LABS: ALBUMIN 3.8 gm/dl (3.1-4.5); ALKALINE PHOSPHATASE 126 U/L (45-117); BUN 15 mg/dl (7-24); CHLORIDE 94 mmol/L (98-107); CREATININE 1.19 mg/dL (0.70-1.30); LIPASE 142 U/L (73-393); MAGNESIUM 2.1 mg/dL (1.5-2.1); POTASSIUM 4.3 mmol/L (3.5-5.1); SGOT/AST 50 IU/L (3-35); SGPT/ALT 61 U/L (12-78); SODIUM 128 mmol/L (136-145); TOTAL PROTEIN 9.2 gm/dL (6.4-8.2)
[2017-05-01 15:23] LABS: TROPONIN I < 0.015 ng/ml (<0.045)
[2017-05-01 15:30] VITALS: BP 132/60
[2017-05-01 15:43] LABS: BILIRUBIN NEGATIVE (NEGATIVE); BLOOD NEGATIVE (NEGATIVE); CLARITY CLEAR (CLEAR); COLOR YELLOW (YELLOW); GLUCOSE 3+ (NEGATIVE); KETONE NEGATIVE (NEGATIVE); LEUKO ESTERASE NEGATIVE (NEGATIVE); NITRITE NEGATIVE (NEGATIVE); PH 5.5 (5.0-9.0); SPECIFIC GRAVITY <= 1.005 (1.005-1.030); UROBILINOGEN 0.2 E.U./dl (0.2-1.0)
[2017-05-01 15:53] LABS: WBC 0-2 wbc/hpf (0-5)
[2017-05-01 16:35] VITALS: BP 128/76
[2017-05-01 17:04] LABS: ABG BASE EXCESS -0.5 mmol/L (-2.0-2.0); ABG HCO3 23.5 mmol/l (22-26); ABG O2 SATURATION 76.5 % (95-97); ARTERIAL BLOOD GAS PCO2 38.8 mmHg (35-45); ARTERIAL BLOOD GAS PH 7.4 (7.35-7.45)
[2017-05-01 17:07] LABS: ARTERIAL BLOOD GAS PO2 38.6 mmHg (80-90)
[2017-05-01 17:28] VITALS: BP 122/78
[2017-05-01 18:30] VITALS: BP 106/60
--- NOTE | 2017-05-01 18:30 | NUR ---
A 61, admitted to ICCU, under the services of SABI Cornejo DO with a diagnosis of DKA. Chief complaint is CAME TO ER FOR SHORTNESS OF BREATH. Patient arrived via stretcher from ER. Monitor applied. Initial assessment completed. Vital signs taken and recorded. SABI CORNEJO DO notified of admission to the unit. Orders received. See assessment for past medical history, medications and allergies. Patient and/or family oriented to unit. [facility] ICCU visitation policy reviewed. Clothing/patient valuable form completed. UCHE WHITE
[2017-05-01] MEDS ORDERED: TRAZODONE50 MG PO (18:49)
[2017-05-01] MEDS ORDERED: LYRICA100 M1 PO (18:51)
[2017-05-01] MEDS ORDERED: BACLOFEN20 M1 PO (18:52)
[2017-05-01] MEDS ORDERED: NABUMETONE750 M1 PO (18:56)
--- NOTE | 2017-05-01 19:11 | NUR ---
CALLED REGARDING RN UNABLE TO VERIFY ALL HOME MEDICATIONS. PATIENT STATED THAT HE HAS A LIST. WHEN RN REVIEWED LIST THERE WERE ONLY A FEW WITH DOSES AND DIRECTIONS. THEN PATIENT STATED THAT HE GETS HIS MEDICATIONS FROM [facility]. WHEN RN CALLED THEY ONLY HAD 4 MEDICATIONS THAT WERE CURRENT. WHEN RN ASKED PATIENT AGAIN HE STATED [facility] RN UPDATED THE MEDICATIONS IN MED RE[facility] THAT I WAS ABLE TO VERIFY. ALSO NOTIFIED OF LACTIC ACID RESULT. NEW ORDERS RECEIVED FOR IVF BOLUS AND AN INCREASE IN RATE.
[2017-05-01 20:00] VITALS: BP 113/71
--- NOTE | 2017-05-01 20:20 | NUR ---
DR AGUIRRE, COVERING FOR DR ECHEVERRIA, NOTIFIED OF CONSULT. NEW ORDERS RECIEVED.
--- NOTE | 2017-05-01 20:35 | NUR ---
DR WAKEFIELD AND DR AMBROCIO NOTIFIED OF CONSULT. NO NEW ORDERS RECEIVED.
--- NOTE | 2017-05-01 22:20 | NUR ---
MEDICATED WITH TYLENOL AND RESTORIL PER PRN ORDERS FOR C/O PAIN AND INSOMNIA.
[2017-05-02] VITALS: BP 99/61
--- NOTE | 2017-05-02 | NUR ---
TYLENOL AND RESTORIL EFFECTIVE.
[2017-05-02 04:00] VITALS: BP 105/64
[2017-05-02 04:38] LABS: BASO % 0.2 % (0.0-1.0); HEMATOCRIT 44.9 % (42.0-52.0); LYMPH % 16.2 % (27.0-41.0); MEAN CELL VOLUME 83.8 fl (80.0-94.0); MEAN CORPUSCULAR HGB CONC 33.4 g/dl (33.0-37.0); MEAN PLATELET VOLUME 14.4 fl (9.6-12.3); MONO # 0.1 10*3/uL (0.1-1.0); MONO % 1.3 % (3.0-9.0); NEUT # 5.1 10*3/uL (2.3-7.9); NEUT % 82.1 % (47.0-73.0); PLATELET COUNT AUTOMATED 65 10*3/uL (130-400); RED BLOOD COUNT 5.36 10*6/uL (4.50-5.90); RED CELL DISTRI WIDTH 13.8 % (0-14.5); WHITE BLOOD COUNT 6.2 10*3/uL (4.8-10.8)
[2017-05-02 05:09] LABS: BUN 17 mg/dl (7-24); CHLORIDE 106 mmol/L (98-107); CHOLESTEROL 165 mg/dL (<200); CREATININE 0.98 mg/dL (0.70-1.30); HDL CHOLESTEROL 26 mg/dl (40-60); LDL CHOLESTEROL 88 mg/dL (9-159); MAGNESIUM 1.7 mg/dL (1.5-2.1); PHOSPHOROUS 1.7 mg/dL (2.5-4.9); POTASSIUM 3.5 mmol/L (3.5-5.1); TRIGLYCERIDES 256 mg/dl (<150); VLDL CHOLESTEROL 51 mg/dL (6-40)
[2017-05-02 05:15] LABS: THYROID STIM HORMONE (HS) 0.312 uIU/ml (0.358-4.75)
[2017-05-02 05:19] LABS: SODIUM 140 mmol/L (136-145)
--- NOTE | 2017-05-02 05:55 | NUR ---
MEDICATED WITH TYLENOL PER PRN ORDER FOR C/O PAIN.
[2017-05-02 07:06] LABS: VITAMIN D, 25-HYDROXY 25.1 ng/mL (30-100)
--- NOTE | 2017-05-02 07:58 | NUR ---
Shift chart check completed.24 HR chart check completed.
[2017-05-02 08:00] VITALS: BP 132/70
--- NOTE | 2017-05-02 09:00 | NUR ---
Window And Siding Craftsman in to talk to patient. Patient states lives at home with alone. There are no steps in the home. Physician: william bojorquez [facility] [place] [facility]: none Patient's level of ADLs: MINIMAL ASSIST Patient has working utilities: all working DME: cane Follow-up physician's appointment after d/c: will be made by hospitalist nurse director upon discharge Does patient want to access PORTAL?: no Discharge plan discussed with patient, patient lives in an apartment alone, he states he uses a cane for ambulation, he has community pallitive care, patient states he will be going home when able and wants community pallitive care to continue. case management will follow. ASHLEY HERNANDEZ
[2017-05-02] MEDS ORDERED: XARELTO20 M1 PO (09:38)
[2017-05-02] MEDS ORDERED: LANTUS SOL100 UNIT/1 SC (09:42)
[2017-05-02] MEDS ORDERED: PRAVACHOL40 MG PO (09:44)
[2017-05-02] MEDS ORDERED: ALDACTONE50 M1 PO (09:44)
[2017-05-02] MEDS ORDERED: OMEPRAZOLE20 M2 PO (09:46)
[2017-05-02] MEDS ORDERED: ASPIRIN81 M1 PO (09:46)
[2017-05-02] MEDS ORDERED: NYSTATIN CREAM15 GM T (09:48)
[2017-05-02] MEDS ORDERED: ABILIFY5 MG PO (09:48)
--- NOTE | 2017-05-02 09:50 | NUR ---
TWO TYLENOL FOR "MIGRAINE HEADACHE" "ABOUT A 6"10. INSULIN DRIP CONTINUES AT 15 UNITS/HR
--- NOTE | 2017-05-02 11:02 | NUR ---
RESTING WITH HIS EYES CLOSED SINCE LAST TYLENOL.
[2017-05-02 12:00] VITALS: BP 119/68
--- NOTE | 2017-05-02 12:20 | NUR ---
case management emailed corporate fax team insurance fax number
--- NOTE | 2017-05-02 14:27 | NUR ---
AM DOSE OF LANTUS INSULIN HAS BEEN GIVEN AND HIS INSULIN DRIP D/C. PT AMBULATED WITH STEADY GAIT INTO THE BR WHERE HE PERFORMED HIS OWN HYGEINE. NOW SITTING IN RECLINER CHAIR. ADMINISTERED HIS ROUTINE SCHEDULED ULTRAM AND A PRN DOSE OF ROBAXIN FOR HIS CHRONIC PAIN.
--- NOTE | 2017-05-02 14:57 | NUR ---
DR WAKEFIELD CALLED TO VERIFY HIS SPUTUM ORDERS OF TODAY. HE WANTS SPUTUM FOR ACID FAST BACILLUS DAILY FOR 3 DAYS. ORDERS AMENDED ELECTRONICALLY.
[2017-05-02 16:00] VITALS: BP 128/67
--- NOTE | 2017-05-02 19:42 | NUR ---
PT WATCHING TV. PLEASANT. NO S&S OF HYPO/HYPERGLYCEMIA. NO RESPIRATORY DISTRESS. PULSE OX 94% RA. VSS. KPHOS RUN INFUSING VIA IV PUMP ORDERED FOR AM k+3.5 AND PHOS 1.7. IV SITE ASYMPTOMATIC.
[2017-05-02 20:00] VITALS: BP 112/61
--- NOTE | 2017-05-02 20:39 | NUR ---
PT'S IV BEGAN TO "HURT" AND LOOKED TO BE SWOLLEN. NO BLOOD RETURN OBTAINED. IV SITE DC'D. IV IN WAS OBSTRUCTED. THIS IV WAS ALSO DC'D. NEW #24 IV STARTED RH X 1 ATTEMPT...EXCELLENT BLOOD RETURN AND FLUSHED EASILY. IVF AND KPHOS RESUMED.
[2017-05-03] VITALS: BP 122/80
--- NOTE | 2017-05-03 02:30 | NUR ---
PATIENT ASLEEP. NO SIGNS AND SYMPTOMS OF DISTRESS. RESPIRATIONS EASY AND UNLABORED. IV FLUIDS INFUSING ORDERED.
[2017-05-03 04:00] VITALS: BP 122/80
[2017-05-03 04:23] LABS: BASO % 0.2 % (0.0-1.0); EOS % 0.1 % (1.0-4.0); HEMATOCRIT 41.8 % (42.0-52.0); HEMOGLOBIN 13.9 g/dl (14.0-18.0); LYMPH # 2.3 10*3/uL (1.3-4.4); LYMPH % 20.9 % (27.0-41.0); MEAN CELL VOLUME 84.1 fl (80.0-94.0); MEAN CORPUSCULAR HGB CONC 33.3 g/dl (33.0-37.0); MONO # 1.1 10*3/uL (0.1-1.0); MONO % 9.7 % (3.0-9.0); NEUT # 7.7 10*3/uL (2.3-7.9); NEUT % 68.6 % (47.0-73.0); PLATELET COUNT AUTOMATED 55 10*3/uL (130-400); RED BLOOD COUNT 4.97 10*6/uL (4.50-5.90); RED CELL DISTRI WIDTH 14.1 % (0-14.5); WHITE BLOOD COUNT 11.2 10*3/uL (4.8-10.8)
[2017-05-03 04:49] LABS: BUN 11 mg/dl (7-24); CHLORIDE 110 mmol/L (98-107); CREATININE 0.81 mg/dL (0.70-1.30); POTASSIUM 4.2 mmol/L (3.5-5.1); SODIUM 141 mmol/L (136-145)
--- NOTE | 2017-05-03 06:42 | NUR ---
SCHEDULED ULTRAM GIVEN.
--- NOTE | 2017-05-03 06:52 | NUR ---
Shift chart check completed.24 HR chart check completed.
--- NOTE | 2017-05-03 07:33 | NUR ---
ON ASSESSMENT PATIENT ALERT AND ORIENTED, IN NO ACUTE DISTRESS. COUGH IS LOOSER THAN YESTERDAY. SPUTUM FOR A/F BACILLUS #2 HAS BEEN SENT. NEW IV SITE OBTAINED RT UPPER ARM. IV FLUIDS CONTINUE AT 125/HR. SEE ALL APPROPRIATE INTERVENTIONS.
[2017-05-03 07:37] VITALS: BP 132/80
--- NOTE | 2017-05-03 08:12 | NUR ---
PT'S CODE STATUS VERIFIED WITH HIM. WHEN I STARTED TO ASK HIM HIS WISHES ABOUT LIFE SUPPORT. HE SAID "DNR CCA". "I DON'T WANT ANY LIFE SUPPORT". DR DUMONT HERE AND ORDER SIGNED.
--- NOTE | 2017-05-03 11:09 | NUR ---
DR WAKEFIELD HAS VISITED.
--- NOTE | 2017-05-03 11:28 | NUR ---
ROBAXIN PO PER PT REQUEST FOR NECK/JAW DISCOMFORT.
[2017-05-03 12:00] VITALS: BP 129/78
--- NOTE | 2017-05-03 12:38 | NUR ---
RESTING ON HIS SIDE, WITH HIS EYES CLOSED AND NO FURTHER VOICED COMPLAINTS SINCE THE ROBAXIN.
--- NOTE | 2017-05-03 13:53 | NUR ---
DR REYES AND JULIA HAVE VISITED. PT NOW NON-MONITORED PT.
--- NOTE | 2017-05-03 15:02 | NUR ---
TRANSFERRED IN STABLE CONDITION VIA BED WITH ALL OF HIS BELONGINGS.
[2017-05-03 16:00] VITALS: BP 133/75
--- NOTE | 2017-05-03 18:09 | NUR ---
PT STATES THAT RELAFEN WAS INEFFECTIVE FOR PAIN RELIEF. MEDICATED WITH PRN ROBAXIN AT THIS TIME.
--- NOTE | 2017-05-03 19:44 | NUR ---
PT STATES THAT ROBAXIN WAS EFFECTIVE FOR PAIN RELIEF SOMEWHAT. PT AWAKE IN BED WATCHING TV.
[2017-05-03 20:00] VITALS: BP 141/81
--- NOTE | 2017-05-03 21:55 | NUR ---
PT ASKED THIS NURSE TO LOOK AT HIS GROIN. 2 PINPOINT OPEN AREAS TO RIGHT GROIN WITH SM AMOUNT OF PURULENT DRAINAGE NOTED. PT STATES HE THOUGHT THERE WAS AN OPEN AREA. ADVISED PT NOT TO APPLY NYSTATIN CREAM TO THE OPEN AREAS. PT ACKNOWLEDGES.
[2017-05-04] VITALS: BP 142/79
--- NOTE | 2017-05-04 00:35 | NUR ---
RESTING IN BED WATCHING TV. BIPAP INTACT. HEP LOCK INTACT. NO C/O'S VOICED. NO DISTRESS NOTED.
--- NOTE | 2017-05-04 02:12 | NUR ---
RESTING IN BED WITH EYES CLOSED. APPEARS TO BE SLEEPING.
--- NOTE | 2017-05-04 06:09 | NUR ---
AWAKENED FOR AM MEDS. BIPAP REMOVED PER REQUEST. NO DISTRESS NOTED.
[2017-05-04 06:20] LABS: BASO % 0.1 % (0.0-1.0); EOS % 0.2 % (1.0-4.0); HEMATOCRIT 44.8 % (42.0-52.0); HEMOGLOBIN 14.8 g/dl (14.0-18.0); LYMPH # 2.5 10*3/uL (1.3-4.4); LYMPH % 25.6 % (27.0-41.0); MEAN CELL VOLUME 84.8 fl (80.0-94.0); MEAN PLATELET VOLUME 14.3 fl (9.6-12.3); MONO # 0.9 10*3/uL (0.1-1.0); MONO % 9.1 % (3.0-9.0); NEUT # 6.2 10*3/uL (2.3-7.9); NEUT % 64.7 % (47.0-73.0); PLATELET COUNT AUTOMATED 51 10*3/uL (130-400); RED BLOOD COUNT 5.28 10*6/uL (4.50-5.90); RED CELL DISTRI WIDTH 14.4 % (0-14.5); WHITE BLOOD COUNT 9.7 10*3/uL (4.8-10.8)
[2017-05-04 06:38] LABS: ALBUMIN 2.9 gm/dl (3.1-4.5); BUN 11 mg/dl (7-24); CHLORIDE 108 mmol/L (98-107); CREATININE 0.68 mg/dL (0.70-1.30); SGOT/AST 36 IU/L (3-35); SGPT/ALT 40 U/L (12-78); SODIUM 139 mmol/L (136-145); TOTAL PROTEIN 7.2 gm/dL (6.4-8.2)
[2017-05-04 06:47] LABS: ALKALINE PHOSPHATASE 82 U/L (45-117)
[2017-05-04 08:00] VITALS: BP 133/81
--- NOTE | 2017-05-04 09:37 | NUR ---
MEDICATED WITH PRN PO RELAFEN AND ROBAXIN FOR BACK PAIN.
--- NOTE | 2017-05-04 10:38 | NUR ---
PRN PO RELAFEN AND ROBAXIN EFFECTIVE FOR BACK PAIN, PER PATIENT.
[2017-05-04 12:00] VITALS: BP 128/72
[2017-05-04 12:05] LABS: ACID FAST SMEAR Negative (.); ACID FAST SPEC PROCESSING Concentration (.)
[2017-05-04 12:05] LABS: ACID FAST SMEAR Negative (.); ACID FAST SPEC PROCESSING Concentration (.)
[2017-05-04 16:00] VITALS: BP 114/69
--- NOTE | 2017-05-04 17:34 | NUR ---
MEDICATED WITH PRN PO ROBAXIN FOR C/O BACK ACHES/CRAMPS
--- NOTE | 2017-05-04 18:15 | NUR ---
PRN PO ROBAXIN EFFECTIVE, PER PATIENT.
[2017-05-04 20:00] VITALS: BP 141/80
[2017-05-05] VITALS: BP 135/90
[2017-05-05 04:00] VITALS: BP 135/90
[2017-05-05 05:55] LABS: BASO % 0.1 % (0.0-1.0); EOS % 0.4 % (1.0-4.0); HEMOGLOBIN 14.2 g/dl (14.0-18.0); LYMPH # 2.8 10*3/uL (1.3-4.4); LYMPH % 29.9 % (27.0-41.0); MEAN CORPUSCULAR HGB 27.7 pg (27.0-31.0); MEAN PLATELET VOLUME 13.9 fl (9.6-12.3); NEUT # 5.4 10*3/uL (2.3-7.9); NEUT % 58.2 % (47.0-73.0); PLATELET COUNT AUTOMATED 51 10*3/uL (130-400); RED BLOOD COUNT 5.12 10*6/uL (4.50-5.90); RED CELL DISTRI WIDTH 14.3 % (0-14.5); WHITE BLOOD COUNT 9.3 10*3/uL (4.8-10.8)
[2017-05-05 06:15] LABS: ALBUMIN 2.9 gm/dl (3.1-4.5); BUN 14 mg/dl (7-24); CHLORIDE 111 mmol/L (98-107); POTASSIUM 3.7 mmol/L (3.5-5.1); SGOT/AST 30 IU/L (3-35); SGPT/ALT 40 U/L (12-78); SODIUM 140 mmol/L (136-145)
[2017-05-05 06:16] LABS: ALKALINE PHOSPHATASE 74 U/L (45-117); TOTAL PROTEIN 6.5 gm/dL (6.4-8.2)
[2017-05-05 08:00] VITALS: BP 137/77
--- NOTE | 2017-05-05 08:04 | NUR ---
Shift chart check completed.
--- NOTE | 2017-05-05 09:41 | NUR ---
case management visits with patient, patient states he thinks he is being discharged today, business continuity planner will notify pallative care when patient is stable for discharge
[2017-05-05] MEDS ORDERED: DOXYCYCLINE MO100 M1 PO (11:24)
[2017-05-05] MEDS ORDERED: PREDNISONE50 MG PO (12:09)
--- NOTE | 2017-05-05 12:45 | NUR ---
REMOVED IV WITH CATHETER INTACT. WENT OVER D/C INSTRUCTIONS. PATIENT VERBALIZED UNDERSTANDING THAT MEDS WERE SENT TO PHARMACY. PATIENT TAKEN TO EXIT VIA WHEELCHAIR. PATIENT IS D/C HOME.
[2017-05-05 14:11] LABS: LEGIONELLA URINARY ANTIGEN Negative (Negative)
[2017-05-06 15:07] LABS: ACID FAST SMEAR Negative (.); ACID FAST SPEC PROCESSING Concentration (.)
== END 2017-05-05 12:45 | disposition home or self-care (01) | DRG 871 ==
LOC: ED 14:11 → ICCU 16:37 → EDHOLD 16:37 → ICCU 17:36 → 4E 05-03 13:54
PROVIDERS: Internal Medicine; Internal Medicine Critical Care Medicine; Internal Medicine Infectious Disease; Nurse Practitioner; Student in an Organized Health Care Education/Training Program; ADMIT Internal Medicine
PROC: 5A09357 Assistance with Respiratory Ventilation, Less than 24 Consecutive Hours, Continuous Positive Airway Pressure (ICD-10-PCS; principal; 2017-05-04)
DX: A41.9 Sepsis, unspecified organism (principal); J18.9 Pneumonia, unspecified organism; J96.10 Chronic respiratory failure, unspecified whether with hypoxia or hypercapnia; I11.0 Hypertensive heart disease with heart failure; E44.0 Moderate protein-calorie malnutrition; J44.0 Chronic obstructive pulmonary disease with (acute) lower respiratory infection; I42.9 Cardiomyopathy, unspecified; I50.22 Chronic systolic (congestive) heart failure; J45.51 Severe persistent asthma with (acute) exacerbation; J44.1 Chronic obstructive pulmonary disease with (acute) exacerbation; B37.49 Other urogenital candidiasis; F33.9 Major depressive disorder, recurrent, unspecified; D69.6 Thrombocytopenia, unspecified; Z66 Do not resuscitate; Z51.5 Encounter for palliative care; K74.60 Unspecified cirrhosis of liver; F41.1 Generalized anxiety disorder; B18.2 Chronic viral hepatitis C; E78.5 Hyperlipidemia, unspecified; M10.9 Gout, unspecified; K21.9 Gastro-esophageal reflux disease without esophagitis; E83.39 Other disorders of phosphorus metabolism; E83.51 Hypocalcemia; A49.8 Other bacterial infections of unspecified site; Z16.12 Extended spectrum beta lactamase (ESBL) resistance; G47.33 Obstructive sleep apnea (adult) (pediatric); E66.01 Morbid (severe) obesity due to excess calories; I25.10 Atherosclerotic heart disease of native coronary artery without angina pectoris; E11.65 Type 2 diabetes mellitus with hyperglycemia; E11.40 Type 2 diabetes mellitus with diabetic neuropathy, unspecified; G89.29 Other chronic pain; J20.9 Acute bronchitis, unspecified; M54.9 Dorsalgia, unspecified; E11.620 Type 2 diabetes mellitus with diabetic dermatitis; Z96.651 Presence of right artificial knee joint; F17.210 Nicotine dependence, cigarettes, uncomplicated; I87.2 Venous insufficiency (chronic) (peripheral); Z90.49 Acquired absence of other specified parts of digestive tract; Z79.4 Long term (current) use of insulin; Z95.5 Presence of coronary angioplasty implant and graft; Z82.49 Family history of ischemic heart disease and other diseases of the circulatory system; Z83.3 Family history of diabetes mellitus; Z84.1 Family history of disorders of kidney and ureter; Z88.0 Allergy status to penicillin; Z88.1 Allergy status to other antibiotic agents; Z88.8 Allergy status to other drugs, medicaments and biological substances; Z79.899 Other long term (current) drug therapy; Z68.31 Body mass index [BMI] 31.0-31.9, adult

== ENCOUNTER 2017-05-17 21:04 | Inpatient (IN) | payer OTHER ==
[~2017-05-17] VITALS: Ht 177.8 cm; Wt 104.9 kg
--- NOTE | ~2017-05-17 | PR ---
[place], [place] PROGRESS NOTE NAME: MAKSIM SMILEY UNIT #: [id number] ROOM: 404 DOCTOR: MARGOT AMBROCIO DO BIRTHDATE: [birth year] DOS: 05/22/2017 SUBJECTIVE: The patient was seen and examined this morning with Dr. Wakefield. The patient did not have any new acute complaints. He says that there is reduction of his respiratory symptoms. OBJECTIVE: VITAL SIGNS: Normal temperature, respiratory rate 18, heart rate 52, blood pressure 136/80, pulse ox noted to be on room air 94%. HEENT: Shows no changes. NECK: Supple. CARDIOVASCULAR: S1, S2 audible. LUNGS: Generalized reduction of breath sounds with expiratory wheezing, improving. ABDOMEN: Soft, obese, nontender, nondistended. LABORATORY DATA: White cell count 11.2, hemoglobin 16, platelet of 63. BUN 21, creatinine 0.79. Bronchial bacterial culture showed normal yajaira ____. ASSESSMENT: 1. Acute exacerbation of bronchial asthma. 2. Chronic obstructive pulmonary disease. 3. Acute severe tracheobronchitis. 4. Chronic obesity. PLAN OF TREATMENT: The patient can be discharged home from pulmonary perspective. The patient can be discharged with doxycycline and prednisone taper. The patient was counseled on tobacco abuse and was discharged with nicotine patch. MARGOT AMBROCIO DO [place], [place] PROGRESS NOTE NAME: MAKSIM SMILEY Kevin UNIT #: [id number] ROOM: 404 DOCTOR: MARGOT AMBROCIO DO BIRTHDATE: [birth year] WILLA WAKEFIELD MD CM:PNAGUILA [id number] MARGOT AMBROCIO DO 05/22/17 1544 interface
--- NOTE | ~2017-05-17 | PR ---
[place], [place] PROGRESS NOTE NAME: MAKSIM SMILEY UNIT #: [id number] ROOM: 404 DOCTOR: WILLA MENEZES MD BIRTHDATE: [birth year] DOS: 05/19/2017 PULMONARY FOLLOWUP SUBJECTIVE: He was noted with severe nonproductive cough, which has not been resolved. Denies symptoms of chest pain or shortness of breath. The patient's wheezing were noted partially improved from yesterday. OBJECTIVE: VITAL SIGNS: Normal temperature, respiratory rate 20, heart rate 71, blood pressure 105/64-128/72, pulse oxygen saturation of the patient on 2 liters, 98% saturation. HEENT: Examination shows no new change. NECK: Supple. CARDIOVASCULAR: S1, S2 audible. LUNGS: Noted with mildly decreased ___ in the lungs bilaterally with expiratory wheezing noted in the lungs bilaterally. ABDOMEN: Soft, obese, and nontender. EXTREMITIES: Does not show any edema. LABORATORY DATA: CBC of the patient 0925 this morning was noted, platelet count 450,000 partially improved from yesterday. CBC normal. Ammonia level was noted, minimally elevated at 34. The BMP this morning, glucose 209, BUN and creatinine was normal. IMPRESSION: The patient with ongoing acute exacerbation of bronchial asthma. The patient has chronic obstructive pulmonary disease, acute tracheobronchitis, and history of past nicotine abuse, history of obstructive sleep apnea disorder, uncontrolled diabetes mellitus, noted better control with the patient's current combination of medication administration, persistent cough and wheezing now resolving. PLAN OF TREATMENT: Bronchoscopy will be done for the patient tomorrow morning, n.p.o. past midnight status has been achieved. The patient's Xarelto was placed on hold for the patient because of bronchoscopy. Xarelto and sertraline could be started after uneventful bronchoscopy from tomorrow afternoon. Other usual care therapy, plan of management and treatment. Supportive care to be continued. Usual care. [place], [place] PROGRESS NOTE NAME: MAKSIM SMILEY UNIT #: [id number] ROOM: 404 DOCTOR: WILLA MENEZES MD BIRTHDATE: [birth year] WILLA WAKEFIELD MD CM:PNTRANS [id number] WILLA SUGGS MD 05/20/17 0047 interface
--- NOTE | ~2017-05-17 | CON ---
[place], [place] REPORT OF CONSULTATION NAME: MAKSIM SMILEY [facility] #: [id number] UNIT #: [id number] ROOM: 404 DOCTOR: WILLA MENEZES MD BIRTHDATE: [birth year] DOS: 05/18/2017 CONSULTATION REQUESTED BY: Hospitalist Services. REASON FOR CONSULTATION: To assess the patient for recurrent acute progressive respiratory symptoms. The consultation was done for patient's assessment of COPD exacerbation. HISTORY OF PRESENT ILLNESS: This is a 61-year-old white male who has been known to me from the past. The patient has been recently hospitalized and treated in this hospital and discharged home on 05/05/2017. The patient remains at hospital several days and noted marked improvement and resolution of the acute symptom for this patient. The patient was discharged home after that. He has completed his respiratory medications. He has been readmitted to the hospital under care of the hospitalist service on 05/18/2017. He presented to the Emergency Room stating that he has developed sinus infection, nasal congestion, postnasal drainage, which later resulted in worsening of the respiratory symptoms. The symptom has been noted progressive with the patient and worsened significantly. The patient was complaining of symptoms of increased shortness of breath with coughing. The coughing has been noted intermittent sputum expectoration, sometimes yellowish in color. He was also noted with symptoms of wheezing along with that with chest tightness. The nasal congestion and drainage has been still noted then now resolved. He has been started on the medical management for the treatment of acute exacerbation of COPD and acute tracheobronchitis. REVIEW OF SYSTEMS: CONSTITUTIONAL SYMPTOMS: He does have symptoms of fatigue and tiredness. Denies any temperature elevation. EYES: Denies any burning, redness, tenderness, or itchiness. EARS, NOSE, AND THROAT SYMPTOMS: The patient was noted with symptoms of nasal congestion with postnasal drainage. Denies any purulent discharge. Denies any pressures on the sinuses. CARDIOVASCULAR: Denies anginal pain, edema or pain of the lower extremities. GASTROINTESTINAL: Dysphagia, nausea, vomiting, diarrhea, abdominal pain, hematemesis or melena. SKIN: Denies any lesions or rashes. MUSCULOSKELETAL: Acute joint pain has been noted with a history of chronic back pain. CENTRAL NERVOUS SYSTEM: Denies dizziness, headache, diplopia or syncopal episodes. Remaining systems were reviewed with the patient, they were noted all negative. PAST MEDICAL HISTORY: 1. The patient was known as rather review of the medical records hospitalization, discharge the patient on 05/05/2017 for the medical management of acute exacerbation of disease and acute tracheobronchitis. 2. History of known COPD. 3. History of uncomplicated severe persistent bronchial asthma. 4. Type 2 diabetes mellitus. [place], [place] REPORT OF CONSULTATION NAME: MAKSIM SMILEY UNIT #: [id number] ROOM: [facility] DOCTOR: GABRIELLE MENEZES MDM BIRTHDATE: [birth year] 5. Chronic obesity, which is noted morbid. 6. Musculoskeletal chronic right-sided chest pain intermittently. 7. Intervertebral disk disease of the lumbar spine. 8. History of nicotine dependence. 9. Obstructive sleep apnea disorder with intermittent noncompliance with treatment. 10. History of hypercholesterolemia. 11. Idiopathic neuropathy. 12. Hepatitis C. 13. Type 2 diabetes mellitus. 14. History of gout. 15. Cardiomyopathy with the patient's systolic dysfunction. 16. Past multiple frequent hospitalizations. 17. Liver cirrhosis with chronic thrombocytopenia. PAST SURGICAL HISTORY: 1. Cervical fusion. 2. Rotator cuff surgery. 3. Cholecystectomy. 4. Past therapeutic bronchoscopies. Last bronchoscopy done in 2015. SOCIAL HISTORY: The patient is single, lives with a girlfriend. Denies history of alcohol or illicit drug use. Tobacco use is noted since 15 a pack of cigarettes per day, intermittent use of tobacco cigarettes at different amounts. FAMILY HISTORY: The patient was noted remarkable for heart disease and kidney disease. MEDICATIONS: Currently administered medications noted, vitamin D, Imdur, potassium chloride, DuoNeb, Remeron, trazodone, Levemir insulin, Xarelto, Olanzapine, vitamin C, magnesium oxide, Lipitor, tramadol, Lasix, current intravenous to 40 mg b.i.d., Nabumetone, baclofen, Robaxin, Mucinex 1200 mg b.i.d., Solu-Medrol 60 mg b.i.d., Aldactone, Coreg, lactulose, Risperdal rather Abilify, aspirin, vitamin D, sliding scale insulin coverage, omeprazole, nicotine replacement patches, Zithromax, Rocephin, Lyrica and other p.r.n. medications administration. DRUG ALLERGY HISTORY: 1. FLOXIN. 2. PENICILLINS. 3. AMOXICILLIN. 4. NEURONTIN. 5. LEVAQUIN. PHYSICAL EXAMINATION: GENERAL: This is a 61-year-old white male who has been currently noted as awake and alert without any acute distress at this time. VITAL SIGNS: Height were recorded by the nursing staff at this time of admission was noted with height of 5 feet 10 inches, weight of 104, BMI 33.1. The vital signs which were recorded shows the temperature was noted as normal, [place], [place] REPORT OF CONSULTATION NAME: MAKSIM SMILEY UNIT #: [id number] ROOM: 404 DOCTOR: TWYLA SUGGS MD,WILLA BIRTHDATE: [birth year] respiratory rate 20, heart rate of 67, blood pressure 108/67. HEENT: Head was atraumatic. Eyes nonicterus. NECK: Supple. Decreased posterior pharyngeal space, high tongue base crowding of soft tissue structures. CARDIOVASCULAR: S1, S2 is audible without any added sounds. LUNGS: The patient was noted with general reduction of breath sounds, moderately in the lungs. The wheezing was noted as moderately. EXTREMITIES: The patient shows chronic obesity as well with edema. Cranial nerves 2-12 intact. MUSCULOSKELETAL: Showed no deformities. SKIN: Showed no lesions or rashes. LABORATORY DATA: The lactic acid noted at 12.5, mildly elevated on 05/17/2017 in the Emergency Room. CBC in the Emergency Room were noted normal except platelet count 64,000 which is chronically decreased. On 05/17/2017, BMP shows glucose 457, BUN and creatinine was normal. Sodium 132, AST 50. Follow up lactic acid 1.7. CMP on 05/18/2017, glucose 271, remaining CBC normal rather CMP normal. INR was noted normal this morning. CBC this morning, platelet count 49,000. Chest x-ray that was done for this patient 1 view on was reviewed, does not show any acute abnormal process. IMPRESSION: 1. The patient who had been currently noted at this time readmitted to the hospital with acute exacerbation of chronic obstructive pulmonary disease as well as uncomplicated severe persistent bronchial asthma and acute bronchitis. The patient has a viral or bacterial infection at this time was unknown. Possibility of viral infection would be considered. 2. History of nicotine dependence. 3. Obstructive sleep apnea disorder, treating with BiPAP at home. 4. Chronic moderate obesity. 5. Chronic anticoagulation. 6. Thrombocytopenia, which has been known chronic with some worsening on this admission. 7. The patient with other multiple medical problems including diabetes, which was noted uncontrolled on this admission, currently being treated with the additional insulin coverage with sliding scale and continue his usual medications for management of diabetes. PLAN OF MANAGEMENT: Order the respiratory plan of this patient for viral infection. Continue current antibiotics at the present time, dose of Solu-Medrol will be gradually decreased based on improvement in symptom, current to maximize the medical management of the diabetes mellitus, noted uncontrolled use of the BiPAP will be ordered during this hospitalization to be continued since the patient usually does not bring his own BiPAP from home settings. Other supportive therapy plan of management care and treatment. Usual care. All other supportive plan and management and care with addition of changes in treatment based on progression of illness. Monitoring of the thrombocytopenia as well. Thrombocytopenia was known with past history of chronic liver cirrhosis. [place], [place] REPORT OF CONSULTATION NAME: MAKSIM SMILEY UNIT #: [id number] ROOM: 404 DOCTOR: WILLA MENEZES MD BIRTHDATE: [birth year] WILLA WAKEFIELD MD CM:CONSTR:REPORT OF CONSULTATION 1302 05/19/17 0422 interface
--- NOTE | ~2017-05-17 | PR ---
[place], [place] PROGRESS NOTE NAME: MAKSIM SMILEY UNIT #: [id number] ROOM: 404 DOCTOR: WILLA MENEZES MD BIRTHDATE: [birth year] DOS: 05/22/2017 SUBJECTIVE: The patient was independently seen and examined today. The history was confirmed. Physical examination was performed. All the labs were reviewed. Assessment, management and changes in the treatment were made for the today's visit. The note done by the medical billing coordinator was approved. The patient continued to complain of coughing. The patient with some sputum expectoration. Shortness breath was noted only with exertion. Intermittent wheezing was described. He was continued on intravenous Solu-Medrol and other medical management without any changes. The patient is currently receiving Solu-Medrol 40 mg b.i.d. Based on the culture results, which has been noted no bacterial growth from the bronchial washing, he has been receiving the azithromycin and doxycycline. OBJECTIVE: VITAL SIGNS: For the patient which has been recorded shows normal temperature, respiratory rate 20, heart rate 63, blood pressure 117/78. Pulse oxygen saturation on BiPAP was 100% with 35% oxygen, on room air this morning was 95% saturation recorded. CHEST: Auscultation of chest was noted. Generally decreased breath sounds, scattered expiratory wheezing, no crackles. ABDOMEN: Noted with chronic obesity. EXTREMITIES: Shows no edema. LABORATORY DATA: Culture of the bronchial washing of the patient 05/22/2017 noted light growth of yeast. IMPRESSION: 1. The patient has been noted with gradual recovery, improvement in the respiratory symptoms with acute exacerbation of chronic obstructive pulmonary disease, bronchial asthma and acute bacterial bronchitis at this time gradually 2. Obstructive sleep apnea disorder, treated with BiPAP. PLAN OF TREATMENT: Consider patient's transfer to senior care facility with intravenous corticosteroids for several days until the resolution ____ for his acute exacerbation. Physical therapy and occupation therapy could be beneficial as well with decreased mobility. [place], [place] PROGRESS NOTE NAME: MAKSIM SMILEY UNIT #: [id number] ROOM: 404 DOCTOR: WILLA MENEZES MD BIRTHDATE: [birth year] WILLA WAKEFIELD MD CM:PNTRANS [id number] WILLA SUGGS MD 05/23/17 0324 interface
--- NOTE | ~2017-05-17 | PR ---
[place], [place] PROGRESS NOTE NAME: MAKSIM SMILEY [facility] #: [id number] UNIT #: [id number] ROOM: 404 DOCTOR: TWYLA SUGGS MD,WILLA BIRTHDATE: [birth year] DOS: 05/21/2017 SUBJECTIVE: He has not been noted with any new acute complaints. The bronchoscopy done for the patient yesterday resulted in reduction of the respiratory symptoms, but symptoms were not noted completely resolved. He was continued on antibiotics, bronchodilators, corticosteroids and using his BiPAP. OBJECTIVE: VITAL SIGNS: For the patient which has been recorded showed normal temperature, respiratory rate 18, heart rate 52, blood pressure 136/80. Pulse oxygen saturation noted on room air 94% saturation. HEENT: Examination shows no acute change. NECK: Supple. CARDIOVASCULAR: S1, S2 audible. LUNGS: Noted with generalized reduction of the breath sounds with expiratory wheezing. ABDOMEN: Soft, obese, nontender. LABORATORY DATA: The patient's CBC today: WBC count 11.2, platelet count 63,000, with improvement of platelet is noted since previous labs. BMP of the patient was noted as normal. Culture of the bronchial washing preliminary showing light growth of yeast. Final culture results were pending. Gram strain was reviewed. Review of the patient's bronchial washings of yesterday, many white blood cells, moderate epithelial cells, few gram-positive cocci in pairs and chains, and few budding yeast. IMPRESSION: 1. Ongoing acute exacerbation of bronchial asthma, exacerbation of chronic obstructive pulmonary disease, acute severe tracheobronchitis. 2. The patient with chronic obesity. 3. Severely uncontrolled hyperglycemia and diabetes mellitus, which has been improving gradually with current adjustments in the medication and acute chronic anticoagulation. 4. The patient with history of liver cirrhosis as well with chronic thrombocytopenia, which has been noted variably controlled. PLAN OF TREATMENT: Reduce the dose of Solu-Medrol to 40 mg b.i.d. Continuation of intravenous Solu-Medrol. Monitor results of the bronchial washings. Adjust the antibiotics accordingly. Continue the use of BiPAP and oxygen supplementation. Abstinence from the tobacco. Other usual medical plan of management and care. Additional treatment changes continuous to be made for the patient based on the progression of illness. Solu-Medrol will be decreased from 60 mg to 40 mg b.i.d. today. [place], [place] PROGRESS NOTE NAME: MAKSIM SMILEY UNIT #: [id number] ROOM: 404 DOCTOR: WILLA MENEZES MD BIRTHDATE: [birth year] WILLA WAKEFIELD MD CM:PNTRANS [id number] WILLA SUGGS MD 05/22/17 0547 interface
--- NOTE | ~2017-05-17 | EKG ---
[place], [place] ELECTROCARDIOGRAM REPORT NAME: MAKSIM SMILEY UNIT #: [id number] ROOM: 404 DOCTOR: TWYLA SUGGS MD,WILLA BIRTHDATE: [birth year] DOS: 05/20/2017 ELECTROCARDIOGRAM REPORT TIME: 1140 PM. Normal sinus rhythm noted. Heart rate at 69 beats per minute. Nonspecific ST-T changes were noted. Poor R-wave progression was noted for the patient in the chest leads for this patient as well. Possibility of myocardial infarction can be excluded. Comparison with an old electrocardiogram was advised. WILLA WAKEFIELD MD CM:EKGRPT:ELECTROCARDIOGRAM REPORT 1254 1601 WILLA SUGGS MD
--- NOTE | ~2017-05-17 | PROC NOTE ---
[place], [place] PROCEDURE NOTE [id number] UNIT #: [id number] ROOM: 404 DOCTOR: TWYLA SUGGS MD,WILLA BIRTHDATE: [birth year] DOS: 05/20/2017 PROCEDURE: Bronchoscopy. PREOPERATIVE DIAGNOSES: Severe cough, wheezing, not resolving with current medical management, exacerbation of bronchial asthma and chronic obstructive pulmonary disease. POSTOPERATIVE DIAGNOSES: Severe impaction and the mucus plugs were noted bronchial tree bilaterally, greater on the right than the left side. PROCEDURE DESCRIPTION: Informed consent was obtained from the patient. The patient was brought to the OR and placed in supine position. Conscious sedation administered by the Anesthesia Department. After achieving appropriate sedation, airway introduced into the mouth. Bronchoscope advanced into the airway into laryngeal area. The epiglottis and vocal cords were seen. Bronchoscope was advanced into the tracheal lumen, in the tracheal lumen was noted with moderate amount of thick mucus secretion. Hina noted sharp. Large plugs and mucus was causing impaction of the right upper, right middle and right lower lobe bronchi. All the secretions and mucus plugs was removed. Left upper lingular, lower lobe bronchi were all examined. All secretions were suctioned out for this patient from the left endobronchial tree as well. The secretion was sent for cultures. Procedure was tolerated by the patient without difficulty. Postoperative findings will be discussed with the patient once the patient recovers from the effects of acute sedation. He will be started on Xarelto today for his usual dose this afternoon. WILLA WAKEFIELD MD CM:PROCNOTE:PROCEDURE NOTE 1006 0125 WILLA SUGGS MD
--- NOTE | ~2017-05-17 | PR ---
[place], [place] PROGRESS NOTE NAME: MAKSIM SMILEY [facility] #: [id number] UNIT #: [id number] ROOM: 404 DOCTOR: TWYLA SUGGS MD,WILLA BIRTHDATE: [birth year] DOS: 05/20/2017 SUBJECTIVE: The patient continues with severe nonproductive cough, which was noted without any sputum expectoration, wheezing was also noted for the patient, ____ shortness of breath occurs with exertion. He has used the BiPAP at nighttime. Denies symptoms of chest pain or any abdominal pain. OBJECTIVE: VITAL SIGNS: Normal temperature, respiratory rate 20, heart rate 57, blood pressure 132/77. Pulse oxygen saturation on room air was 97% saturation. HEENT: Examination shows chronic obesity. NECK: Short and obese. CARDIOVASCULAR: S1, S2 audible. LUNGS: Diffuse expiratory wheezing, no crackles. ABDOMEN: Soft and nontender. EXTREMITIES: Shows chronic obesity. LABORATORY DATA: BMP today were noted, glucose 309, BUN and creatinine was normal. Blood culture for the patient from the showed no bacterial growth. Bedside blood glucose was elevated last evening as 511. IMPRESSION: The patient with ongoing acute exacerbation of chronic obstructive pulmonary disease with acute tracheobronchitis. The patient has bronchial asthma exacerbation, persistent cough, wheezing now resolving with current medical management. PLAN OF TREATMENT: No changes in the treatment for this patient at this time will be necessary. The patient will be continued on current plan of management. Addition of treatment change needs to be done based on the progression of the illness. Usual care. All other supportive plan of therapy and care plan. Usual medical management. WILLA WAKEFIELD MD CM:PNTRANS WILLA SUGGS MD 05/21/1755 interface
[~2017-05-17 21:04] MED LIST changes: +BACLOFEN20 M1 PO; +NABUMETONE750 M1 PO; +XARELTO20 M1 PO
[2017-05-17 21:14] VITALS: BP 113/68
[2017-05-17 21:48] LABS: BASO # 0.1 10*3/uL (0.0-0.1); BASO % 0.8 % (0.0-1.0); EOS # 0.2 10*3/uL (0.0-0.4); EOS % 1.6 % (1.0-4.0); HEMATOCRIT 44.7 % (42.0-52.0); HEMOGLOBIN 15.4 g/dl (14.0-18.0); LYMPH # 2.2 10*3/uL (1.3-4.4); LYMPH % 21.6 % (27.0-41.0); MEAN CELL VOLUME 84.2 fl (80.0-94.0); MEAN CORPUSCULAR HGB CONC 34.5 g/dl (33.0-37.0); MEAN PLATELET VOLUME 13.9 fl (9.6-12.3); MONO # 1.2 10*3/uL (0.1-1.0); MONO % 11.4 % (3.0-9.0); NEUT # 6.6 10*3/uL (2.3-7.9); NEUT % 64.3 % (47.0-73.0); PLATELET COUNT AUTOMATED 64 10*3/uL (130-400); RED BLOOD COUNT 5.31 10*6/uL (4.50-5.90); RED CELL DISTRI WIDTH 14.6 % (0-14.5); WHITE BLOOD COUNT 10.3 10*3/uL (4.8-10.8)
--- NOTE | 2017-05-17 21:54 | NUR ---
DR. DOMINGUEZ NOTIFIED OF LACTIC 2.5.
[2017-05-17 21:59] LABS: ACT PARTIAL THROMBO TIME 27.9 SECONDS (20.8-31.5); INTERNATIONAL NORM RATIO 1.2 (2.0-3.5)
[2017-05-17 22:11] LABS: ALBUMIN 3.5 gm/dl (3.1-4.5); ALKALINE PHOSPHATASE 112 U/L (45-117); BUN 15 mg/dl (7-24); CHLORIDE 95 mmol/L (98-107); CREATININE 1.15 mg/dL (0.70-1.30); MAGNESIUM 1.8 mg/dL (1.5-2.1); POTASSIUM 4.7 mmol/L (3.5-5.1); SGOT/AST 50 IU/L (3-35); SGPT/ALT 57 U/L (12-78); SODIUM 132 mmol/L (136-145); TOTAL PROTEIN 8.2 gm/dL (6.4-8.2)
[2017-05-17 22:12] LABS: TROPONIN I < 0.015 ng/ml (<0.045)
[2017-05-17 23:42] VITALS: BP 132/68
[2017-05-18 01:15] VITALS: BP 126/67
--- NOTE | 2017-05-18 01:15 | NUR ---
A 61, admitted to , under the services of MICHAELLE Lazo DO with a diagnosis of COPD EXACERBATION. Chief complaint is SHORTNESS OF BREATH. Patient arrived via bed from ER. Monitor applied. Initial assessment completed. Vital signs taken and recorded. MICHAELLE LAZO DO notified of admission to the unit. Orders received. See assessment for past medical history, medications and allergies. Patient and/or family oriented to unit. [facility]. Clothing/patient valuable form completed. CRISTOPHER RAJAN
--- NOTE | 2017-05-18 02:47 | NUR ---
PRN PAIN MED GIVEN FOR PT REPORT 9/10 LOWER BACK AND CHEST PAIN.
--- NOTE | 2017-05-18 02:50 | NUR ---
PRN BLOOD SUGAR CHECKED AT 354, PT COVERED WITH 20 UNITS SHORT ACTING INSULIN.
--- NOTE | 2017-05-18 03:47 | NUR ---
PRN PAIN MED APPEARS EFFECTIVE, PT IS SLEEPING.
[2017-05-18 06:11] LABS: HEMATOCRIT 43.9 % (42.0-52.0); HEMOGLOBIN 14.8 g/dl (14.0-18.0); MEAN CELL VOLUME 84.6 fl (80.0-94.0); MEAN CORPUSCULAR HGB 28.5 pg (27.0-31.0); MEAN CORPUSCULAR HGB CONC 33.7 g/dl (33.0-37.0); MEAN PLATELET VOLUME 14.8 fl (9.6-12.3); PLATELET COUNT AUTOMATED 49 10*3/uL (130-400); RED BLOOD COUNT 5.19 10*6/uL (4.50-5.90); RED CELL DISTRI WIDTH 14.6 % (0-14.5); WHITE BLOOD COUNT 7.4 10*3/uL (4.8-10.8)
[2017-05-18 06:38] LABS: CHLORIDE 99 mmol/L (98-107); POTASSIUM 3.8 mmol/L (3.5-5.1); SODIUM 136 mmol/L (136-145)
[2017-05-18 06:46] LABS: ALBUMIN 3.3 gm/dl (3.1-4.5); ALKALINE PHOSPHATASE 99 U/L (45-117); BUN 17 mg/dl (7-24); CREATININE 1.01 mg/dL (0.70-1.30); FREE T4 0.89 ng/dl (0.76-1.46); PHOSPHOROUS 2.6 mg/dL (2.5-4.9); SGOT/AST 33 IU/L (3-35); SGPT/ALT 52 U/L (12-78); THYROID STIM HORMONE (HS) 0.444 uIU/ml (0.358-4.75); TOTAL PROTEIN 7.3 gm/dL (6.4-8.2); VITAMIN D, 25-HYDROXY 30.4 ng/mL (30-100)
[2017-05-18 06:50] LABS: INTERNATIONAL NORM RATIO 1.1 (2.0-3.5)
[2017-05-18 07:00] LABS: TOTAL CELLS COUNTED 100 #CELLS
[2017-05-18 07:01] LABS: PLATELET SUFFICIENCY LOW (NORMAL)
[2017-05-18 08:00] VITALS: BP 108/68
--- NOTE | 2017-05-18 10:46 | NUR ---
DR WAKEFIELD AWARE OF CONSULT & HERE TO SEE PT.
[2017-05-18 12:00] VITALS: BP 136/72
[2017-05-18 16:00] VITALS: BP 113/73
[2017-05-18 16:11] LABS: BILIRUBIN NEGATIVE (NEGATIVE); BLOOD NEGATIVE (NEGATIVE); CLARITY CLEAR (CLEAR); COLOR YELLOW (YELLOW); GLUCOSE 3+ (NEGATIVE); KETONE NEGATIVE (NEGATIVE); LEUKO ESTERASE NEGATIVE (NEGATIVE); NITRITE NEGATIVE (NEGATIVE); UROBILINOGEN 0.2 E.U./dl (0.2-1.0)
[2017-05-18 16:28] LABS: RBC 0-2 rbc/hpf (0-2)
--- NOTE | 2017-05-18 17:26 | NUR ---
PT C/O MID STERNAL CHEST PAIN, STATES "FEELS LIKE SOMETHING HEAVY IS ON MY CHEST" MONITOR STRIP ON CHART. DR JONES NOTIFIED & IN TO SEE PT IMMEDIATELY. BP 123/76 WITH HR 66. SPO2 94% ON 2LNC, NO DIAPHORSIS OR S.O.B. NOTED. NEW ORDERS RECEIVED.
[2017-05-18 18:14] LABS: CPK 23 U/L (39-308); LDH 166 U/L (87-241)
[2017-05-18 18:17] LABS: CKMB < 0.5 ng/ml (0.5-3.6); TROPONIN I < 0.015 ng/ml (<0.045)
--- NOTE | 2017-05-18 18:20 | NUR ---
NOTIFIED DR. JONES OF CARDIAC ENZYMES, DIRECTED TO CANCEL CARDIAC CONSULT.
[2017-05-18 20:00] VITALS: BP 120/71
--- NOTE | 2017-05-18 21:29 | NUR ---
PRN PAIN MED GIVEN FOR PT REPORT 7/10 BACK PAIN.
--- NOTE | 2017-05-18 22:27 | NUR ---
PRN PAIN MED EFFECTIVE, PT REPORTS HIS PAIN A 5/10.
[2017-05-19] VITALS: BP 128/72
[2017-05-19 06:18] LABS: BASO % 0.2 % (0.0-1.0); EOS % 0.1 % (1.0-4.0); HEMATOCRIT 42.9 % (42.0-52.0); HEMOGLOBIN 14.4 g/dl (14.0-18.0); LYMPH # 2.1 10*3/uL (1.3-4.4); MEAN CELL VOLUME 84.6 fl (80.0-94.0); MEAN CORPUSCULAR HGB 28.4 pg (27.0-31.0); MEAN CORPUSCULAR HGB CONC 33.6 g/dl (33.0-37.0); MEAN PLATELET VOLUME 14.3 fl (9.6-12.3); MONO # 1.1 10*3/uL (0.1-1.0); MONO % 11.9 % (3.0-9.0); NEUT % 64.6 % (47.0-73.0); PLATELET COUNT AUTOMATED 50 10*3/uL (130-400); RED BLOOD COUNT 5.07 10*6/uL (4.50-5.90); RED CELL DISTRI WIDTH 14.9 % (0-14.5); WHITE BLOOD COUNT 9.3 10*3/uL (4.8-10.8)
[2017-05-19 06:33] LABS: BUN 23 mg/dl (7-24); CHLORIDE 99 mmol/L (98-107); CREATININE 0.92 mg/dL (0.70-1.30); POTASSIUM 4.4 mmol/L (3.5-5.1); SODIUM 136 mmol/L (136-145)
[2017-05-19 08:00] VITALS: BP 105/64
[2017-05-19 12:00] VITALS: BP 120/71
[2017-05-19 16:00] VITALS: BP 102/61
[2017-05-19 20:00] VITALS: BP 118/68
--- NOTE | 2017-05-19 21:48 | NUR ---
CALLED JOSE JORDAN PATIENT BLOOD GLUCOSE OF 511 NO NEW ORDERS ATY THIS TIME.
--- NOTE | 2017-05-19 23:09 | NUR ---
CALLED JOSE JONES WITH PATIENTS BLOOD GLUCOSE OF 372 HE SAID TO GO AHEAD AND COVER HIM .
--- NOTE | 2017-05-19 23:44 | NUR ---
PATIENT GIVEN PAIN PILL FOR 8/10 BACK PAIN.
[2017-05-20] VITALS (8 sets, daily range): BP systolic 105–135; BP diastolic 66–80
--- NOTE | 2017-05-20 00:13 | NUR ---
PT PLACED ON BIPAP
--- NOTE | 2017-05-20 10:15 | NUR ---
PHYSICAL THERAPY House keeping mopping floor at this time. Thank you for this referral. Cindy Headley,PT
--- NOTE | 2017-05-20 10:29 | NUR ---
PHYSICAL THERAPY APtient refuses PT this date. Thank you for this referral. Cindy Gonzalez,PT
--- NOTE | 2017-05-20 18:18 | NUR ---
DR Sruthi CONRAD NOTIFIED OF LUBA AT 180. I WAS AT PATIENT'S BEDSIDE AT THIS TIME AND HE WAS CHOKING AT THE TIME ON A MEDICATION. IN NORMAL SINUS NOW.
--- NOTE | 2017-05-20 19:31 | NUR ---
24 HR chart check completed.
--- NOTE | 2017-05-20 20:00 | NUR ---
Patient resting quietly with no c/o discomfort. Respirations easy and regular. Vital signs stable. No overt distress. JAOSN WILSON
[2017-05-21] VITALS: BP 136/87
--- NOTE | 2017-05-21 | NUR ---
Patient resting quietly with no c/o discomfort. Respirations easy and regular. Vital signs stable. No overt distress. JASON WILSON
--- NOTE | 2017-05-21 04:00 | NUR ---
Patient resting quietly with no c/o discomfort. Respirations easy and regular. Vital signs stable. No overt distress. JASON WILSON
--- NOTE | 2017-05-21 07:09 | NUR ---
PT REFUSED AM LABS STATING HE'S TRIED OF "BEING STUCK".
[2017-05-21 08:00] VITALS: BP 136/80
[2017-05-21 09:36] LABS: BASO % 0.1 % (0.0-1.0); HEMATOCRIT 48.3 % (42.0-52.0); LYMPH # 2.4 10*3/uL (1.3-4.4); LYMPH % 21.1 % (27.0-41.0); MEAN CELL VOLUME 84.7 fl (80.0-94.0); MEAN CORPUSCULAR HGB 28.1 pg (27.0-31.0); MEAN CORPUSCULAR HGB CONC 33.1 g/dl (33.0-37.0); MEAN PLATELET VOLUME 13.8 fl (9.6-12.3); MONO # 1.1 10*3/uL (0.1-1.0); MONO % 9.6 % (3.0-9.0); NEUT # 7.7 10*3/uL (2.3-7.9); NEUT % 68.8 % (47.0-73.0); PLATELET COUNT AUTOMATED 63 10*3/uL (130-400); WHITE BLOOD COUNT 11.2 10*3/uL (4.8-10.8)
--- NOTE | 2017-05-21 09:37 | NUR ---
PATIENTS IV IS OUT, PATIENT REFUSES TO HAVE ANOTH IV PLACED, REFUSED IV ROCEPHEN AND IV SOLUMEDROL. DR. FISHER NOTIFIED AND IS AWARE. NO NEW ORDERS RECIEVED. PT ALSO REQUESTED NORCO FOR ALL OVER PAIN 04/03 WILL MONITOR.
[2017-05-21 10:02] LABS: BUN 21 mg/dl (7-24); CHLORIDE 104 mmol/L (98-107); CREATININE 0.79 mg/dL (0.70-1.30); POTASSIUM 3.5 mmol/L (3.5-5.1); SODIUM 139 mmol/L (136-145)
--- NOTE | 2017-05-21 10:30 | NUR ---
PER PT NORCO EFFECTIVE
--- NOTE | 2017-05-21 10:45 | NUR ---
workforce planner in to see patient. Patient has current services through [facility] and would like to continue those upon discharge.
--- NOTE | 2017-05-21 10:47 | NUR ---
PHYSICAL THERAPY PAtient evaluated on 4, full evaluation to follow. Continue with PT as per plan of care with fall and cardiac precautions. Home with home health RN. Home health PT prn. PAtient is low complexity via chart review, tests and evaluation [id number]. Thank you for this referral. doug Headley,PT
--- NOTE | 2017-05-21 11:14 | NUR ---
PATIENTS BLOOD GLUCOSE IS 188. PATIENT REFUSED COVERAGE. STATES HE DOES NOT COVER AT 188 AT HOME.
[2017-05-21 12:00] VITALS: BP 113/66
[2017-05-21 15:06] LABS: ACID FAST SMEAR Negative (.); ACID FAST SPEC PROCESSING Concentration (.)
[2017-05-21 16:00] VITALS: BP 90/64
--- NOTE | 2017-05-21 17:27 | NUR ---
Pt refusing IV/IV therapies. See MAR.
--- NOTE | 2017-05-21 17:34 | NUR ---
Pt. given pain medication as ordered/ requested. Patient alert and oriented, respirations are regular and easy. Resting quietly in bed watching tv. Verbalized relief. No acute distress noted at this time.
[2017-05-21 20:00] VITALS: BP 108/70
--- NOTE | 2017-05-21 21:10 | NUR ---
PATIENT REFUSED BGM.
--- NOTE | 2017-05-21 23:50 | NUR ---
PATIENT REFUSED IM CETRIAXONE.
[2017-05-22] VITALS: BP 120/71
--- NOTE | 2017-05-22 03:16 | NUR ---
PATIENT SLEEPING AT THIS TIME. NO DISTRESS NOTED. NO CONCERNS AT THIS TIME.
--- NOTE | 2017-05-22 05:58 | NUR ---
PATIENT REFUSED MORNING BGM
[2017-05-22 08:00] VITALS: BP 122/70
[2017-05-22] MEDS ORDERED: DOXYCYCLINE MO100 M1 PO (10:15)
[2017-05-22] MEDS ORDERED: PREDNISONE10 MG PO (10:16)
[2017-05-22] MEDS ORDERED: NICOTROL10 MG INH (10:22)
[2017-05-22 12:00] VITALS: BP 117/78
--- NOTE | 2017-05-22 12:22 | NUR ---
PT REFUSED TO HAVE BLOOD SUGAR CHECKED.
--- NOTE | 2017-05-22 14:20 | NUR ---
Discharge instructions reviewed with patient/family. Patient receptive and verbalizes understanding. Follow-up care arranged. Written instructions given to patient/family. ARACELY BAEZ
--- NOTE | 2017-05-22 14:40 | NUR ---
PHYSICAL THERAPY Patient presented to therapy with report of feeling much better after having a brochiolescopy yesterday. Patient performed GAIT with no assistive device for 200' x 1 with Close Supervision for 10 minutes 1:1 with this MACHINE SHOP REPAIR TECHNICIAN. Rudy Jerez PTA
[2017-05-23 00:09] LABS: ADENOVIRUS Negative (Negative); INFLUENZA A Negative (Negative); INFLUENZA B Positive (Negative); METAPNEUMOVIRUS Negative (Negative); PARAINFLUENZA 1 Negative (Negative); PARAINFLUENZA 2 Negative (Negative); PARAINFLUENZA 3 Negative (Negative); RSV A Negative (Negative); RSV B Negative (Negative)
--- NOTE | 2017-05-23 07:59 | NUR ---
PHYSICAL THERAPY CO-SIGN I approve of the Phyical Therapy notes written above. JIMBO HAYS PT
[2017-05-24 00:04] LABS: RHINOVIRUS Positive (Negative)
== END 2017-05-22 14:20 | disposition home or self-care (01) | DRG 190 ==
LOC: ED 21:04 → EDHOLD 05-18 00:05 → 4E 05-18 00:05
PROVIDERS: Emergency Medicine Emergency Medical Services; Family Medicine; Hospitalist; Internal Medicine; Internal Medicine Critical Care Medicine; ADMIT Internal Medicine
PROC: 0BC68ZZ Extirpation of Matter from Right Lower Lobe Bronchus, Via Natural or Artificial Opening Endoscopic (ICD-10-PCS; principal; 2017-05-20)
PROC: 0BC48ZZ Extirpation of Matter from Right Upper Lobe Bronchus, Via Natural or Artificial Opening Endoscopic (ICD-10-PCS; 2017-05-20)
PROC: 0BC58ZZ Extirpation of Matter from Right Middle Lobe Bronchus, Via Natural or Artificial Opening Endoscopic (ICD-10-PCS; 2017-05-20)
PROC: 0B998ZX Drainage of Lingula Bronchus, Via Natural or Artificial Opening Endoscopic, Diagnostic (ICD-10-PCS; 2017-05-20)
PROC: 0B9B8ZX Drainage of Left Lower Lobe Bronchus, Via Natural or Artificial Opening Endoscopic, Diagnostic (ICD-10-PCS; 2017-05-20)
DX: J44.0 Chronic obstructive pulmonary disease with (acute) lower respiratory infection (principal); J18.9 Pneumonia, unspecified organism; I50.43 Acute on chronic combined systolic (congestive) and diastolic (congestive) heart failure; E87.2 Acidosis; E11.42 Type 2 diabetes mellitus with diabetic polyneuropathy; E44.0 Moderate protein-calorie malnutrition; D69.6 Thrombocytopenia, unspecified; I11.0 Hypertensive heart disease with heart failure; F33.9 Major depressive disorder, recurrent, unspecified; E87.1 Hypo-osmolality and hyponatremia; J45.51 Severe persistent asthma with (acute) exacerbation; J44.1 Chronic obstructive pulmonary disease with (acute) exacerbation; Z66 Do not resuscitate; E11.65 Type 2 diabetes mellitus with hyperglycemia; B18.2 Chronic viral hepatitis C; G47.33 Obstructive sleep apnea (adult) (pediatric); B37.9 Candidiasis, unspecified; M1A.9XX0 Chronic gout, unspecified, without tophus (tophi); Z51.5 Encounter for palliative care; G89.29 Other chronic pain; M54.5 Low back pain; K74.60 Unspecified cirrhosis of liver; I87.2 Venous insufficiency (chronic) (peripheral); J20.8 Acute bronchitis due to other specified organisms; F41.1 Generalized anxiety disorder; E66.01 Morbid (severe) obesity due to excess calories; E78.00 Pure hypercholesterolemia, unspecified; K21.9 Gastro-esophageal reflux disease without esophagitis; I25.10 Atherosclerotic heart disease of native coronary artery without angina pectoris; F17.210 Nicotine dependence, cigarettes, uncomplicated; Z88.1 Allergy status to other antibiotic agents; Z88.0 Allergy status to penicillin; Z71.6 Tobacco abuse counseling; Z68.33 Body mass index [BMI] 33.0-33.9, adult; Z79.4 Long term (current) use of insulin; Z79.01 Long term (current) use of anticoagulants; Z79.82 Long term (current) use of aspirin; Z79.899 Other long term (current) drug therapy; Z88.8 Allergy status to other drugs, medicaments and biological substances; Z95.5 Presence of coronary angioplasty implant and graft; Z90.49 Acquired absence of other specified parts of digestive tract; Z98.1 Arthrodesis status; Z83.3 Family history of diabetes mellitus; Z82.49 Family history of ischemic heart disease and other diseases of the circulatory system; Z82.3 Family history of stroke; Z84.1 Family history of disorders of kidney and ureter

== ENCOUNTER 2017-11-05 16:32 | Emergency (ER) | payer MEDICAID ==
[~2017-11-05] VITALS: Ht 165.1 cm; Wt 9.1 kg
[~2017-11-05 16:32] MED LIST changes: +NICOTROL10 MG INH
== END 2017-11-05 18:24 | disposition home or self-care (01) ==
LOC: ED 16:32
DX: M17.11 Unilateral primary osteoarthritis, right knee (principal); F17.200 Nicotine dependence, unspecified, uncomplicated; G62.9 Polyneuropathy, unspecified; J44.9 Chronic obstructive pulmonary disease, unspecified; I11.0 Hypertensive heart disease with heart failure; I50.9 Heart failure, unspecified; Z98.890 Other specified postprocedural states; Z95.5 Presence of coronary angioplasty implant and graft; Z90.49 Acquired absence of other specified parts of digestive tract; Z79.82 Long term (current) use of aspirin; Z79.899 Other long term (current) drug therapy; Z79.4 Long term (current) use of insulin; Z88.0 Allergy status to penicillin; Z88.1 Allergy status to other antibiotic agents; Z88.8 Allergy status to other drugs, medicaments and biological substances

== ENCOUNTER → 2017-11-21 | Outpatient (CLI) | payer MEDICAID ==
[2017-11-21 12:04] LABS: BUN 10 mg/dl (7-24); CHLORIDE 104 mmol/L (98-107); CREATININE 1.04 mg/dL (0.70-1.30); POTASSIUM 3.7 mmol/L (3.5-5.1); SODIUM 139 mmol/L (136-145)
[2017-11-21 12:10] LABS: HEMOGLOBIN 12.8 g/dl (14.0-18.0); MEAN CELL VOLUME 73.9 fl (80.0-94.0); MEAN CORPUSCULAR HGB 24.2 pg (27.0-31.0); MEAN CORPUSCULAR HGB CONC 32.8 g/dl (33.0-37.0); MEAN PLATELET VOLUME 12.2 fl (9.6-12.3); RED BLOOD COUNT 5.28 10*6/uL (4.50-5.90); RED CELL DISTRI WIDTH 15.3 % (0-14.5); WHITE BLOOD COUNT 8.9 10*3/uL (4.8-10.8)
== END | disposition home or self-care (01) ==
LOC: LAB 11:14
PROVIDERS: Nurse Practitioner Adult Health
DX: F33.2 Major depressive disorder, recurrent severe without psychotic features (principal); G89.29 Other chronic pain

== ENCOUNTER 2018-06-03 14:16 | Emergency (ER) | payer OTHER ==
[~2018-06-03] VITALS: Ht 177.8 cm; Wt 97.5 kg
--- NOTE | ~2018-06-03 | EKG ---
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
[2018-06-03 14:56] LABS: BASO # 0.1 10*3/uL (0.0-0.1); BASO % 0.6 % (0.0-1.0); EOS # 0.3 10*3/uL (0.0-0.4); EOS % 2.7 % (1.0-4.0); HEMOGLOBIN 13.7 g/dl (14.0-18.0); LYMPH # 2.3 10*3/uL (1.3-4.4); LYMPH % 23.8 % (27.0-41.0); MEAN CELL VOLUME 81.1 fl (80.0-94.0); MEAN CORPUSCULAR HGB 27.8 pg (27.0-31.0); MEAN CORPUSCULAR HGB CONC 34.3 g/dl (33.0-37.0); MONO # 1.1 10*3/uL (0.1-1.0); MONO % 11.7 % (3.0-9.0); NEUT # 5.8 10*3/uL (2.3-7.9); PLATELET COUNT AUTOMATED 104 10*3/uL (130-400); RED BLOOD COUNT 4.93 10*6/uL (4.50-5.90); RED CELL DISTRI WIDTH 16.3 % (0-14.5); WHITE BLOOD COUNT 9.5 10*3/uL (4.8-10.8)
[2018-06-03 15:07] LABS: ACT PARTIAL THROMBO TIME 36.9 SECONDS (20.8-31.5); INTERNATIONAL NORM RATIO 1.5 (2.0-3.5)
[2018-06-03 15:14] LABS: ALBUMIN 3.3 gm/dl (3.1-4.5); ALKALINE PHOSPHATASE 105 U/L (45-117); BUN 11 mg/dl (7-24); CHLORIDE 107 mmol/L (98-107); CREATININE 0.88 mg/dL (0.70-1.30); LIPASE 135 U/L (73-393); POTASSIUM 3.3 mmol/L (3.5-5.1); SGOT/AST 22 IU/L (3-35); SGPT/ALT 26 U/L (12-78); SODIUM 141 mmol/L (136-145); TOTAL PROTEIN 7.6 gm/dL (6.4-8.2)
[2018-06-03 15:20] LABS: TROPONIN I < 0.015 ng/ml (<0.045)
== END 2018-06-03 16:45 | disposition home or self-care (01) ==
LOC: ED 14:16
PROVIDERS: Physician Assistant
DX: R19.7 Diarrhea, unspecified (principal); K74.60 Unspecified cirrhosis of liver; R06.02 Shortness of breath; F17.200 Nicotine dependence, unspecified, uncomplicated; Z90.49 Acquired absence of other specified parts of digestive tract; Z88.8 Allergy status to other drugs, medicaments and biological substances; Z88.0 Allergy status to penicillin; Z88.1 Allergy status to other antibiotic agents; Z79.82 Long term (current) use of aspirin; Z79.899 Other long term (current) drug therapy

== ENCOUNTER 2019-07-13 15:16 | Inpatient (IN) | payer OTHER ==
[~2019-07-13] VITALS: Ht 177.8 cm; Wt 101.6 kg
[~2019-07-13 15:16] MED LIST changes: +COREG12.5 M1 PO; +ELIQUIS2.5 M1 PO; +ELIQUIS5 M1 PO; +FLUOXETINE HYDR20 M1 PO; +HYDROXYZINE PAM50 MG PO; +MUCINEX ER600 MG PO; +QUETIAPINE FUMA50 M1 PO; +SYMB160 INH; +VITAMIN C500 M8 PO; +VITAMIN D50000 UNIT PO
[2019-07-13 15:19] VITALS: BP 115/65
[2019-07-13 15:45] LABS: BASO % 0.4 % (0.0-1.0); EOS # 0.1 10*3/uL (0.0-0.4); EOS % 0.9 % (1.0-4.0); HEMATOCRIT 45.1 % (42.0-52.0); HEMOGLOBIN 14.8 g/dl (14.0-18.0); LYMPH # 1.6 10*3/uL (1.3-4.4); LYMPH % 18.1 % (27.0-41.0); MEAN CELL VOLUME 83.7 fl (80.0-94.0); MEAN CORPUSCULAR HGB 27.5 pg (27.0-31.0); MEAN CORPUSCULAR HGB CONC 32.8 g/dl (33.0-37.0); MEAN PLATELET VOLUME 12.5 fl (9.6-12.3); MONO % 10.8 % (3.0-9.0); NEUT # 6.2 10*3/uL (2.3-7.9); NEUT % 69.5 % (47.0-73.0); PLATELET COUNT AUTOMATED 76 10*3/uL (130-400); RED BLOOD COUNT 5.39 10*6/uL (4.50-5.90); RED CELL DISTRI WIDTH 16.5 % (0-14.5); WHITE BLOOD COUNT 8.9 10*3/uL (4.8-10.8)
[2019-07-13 15:55] LABS: ACT PARTIAL THROMBO TIME 33.8 SECONDS (20.0-32.1); INTERNATIONAL NORM RATIO 1.1 (2.0-3.5)
[2019-07-13 16:04] LABS: ALBUMIN 3.5 gm/dl (3.1-4.5); ALKALINE PHOSPHATASE 124 U/L (45-117); BUN 10 mg/dl (7-24); CHLORIDE 105 mmol/L (98-107); CREATININE 1.07 mg/dL (0.70-1.30); POTASSIUM 3.8 mmol/L (3.5-5.1); SGOT/AST 18 IU/L (3-35); SGPT/ALT 24 U/L (12-78); SODIUM 138 mmol/L (136-145); TOTAL PROTEIN 7.5 gm/dL (6.4-8.2)
--- NOTE | 2019-07-13 16:05 | NUR ---
HANY BRENNAN MADE AWARE OF LACTIC ACID OF 3.1.
[2019-07-13 16:06] LABS: TROPONIN I < 0.015 ng/ml (<0.045)
--- NOTE | 2019-07-13 16:30 | NUR ---
SITTING UP IN BED AND DENIES ANY NEEDS. UPDATED.
[2019-07-13 17:07] VITALS: BP 105/67
--- NOTE | 2019-07-13 17:08 | NUR ---
ASLEEP WITH EASY RESPIRATIONS. AROUSED EASILY TO NAME AND IS FEELING BETTER. UPDATED ON PLAN OF CARE AND CONTINUES TO DENY ANY NEEDS.
--- NOTE | 2019-07-13 17:35 | NUR ---
Pt given breathing tx with no comps. SpO2 on room air is 99%.
--- NOTE | 2019-07-13 17:59 | NUR ---
RESIDENT IS AT THE BEDSIDE.
[2019-07-13] MEDS ORDERED: BUSPAR15 MG PO (18:40)
[2019-07-13] MEDS ORDERED: SEROQUEL50 MG PO (18:42)
[2019-07-13] MEDS ORDERED: PROZAC20 MG PO (18:47)
[2019-07-13 19:00] VITALS: BP 109/63
[2019-07-13 19:15] VITALS: BP 112/68
--- NOTE | 2019-07-13 19:15 | NUR ---
A 63, admitted to , under the services of KEV Wu DO with a diagnosis of . Chief complaint is SOB. Patient arrived [place]cher from [place]. Monitor applied. Initial assessment completed. Vital signs taken and recorded. KEV WU DO notified of admission to the unit. Orders received. See assessment for past medical history, medications and allergies. Patient and/or family oriented to unit. [facility]. Clothing/patient valuable form completed. RAE GROVER
--- NOTE | 2019-07-13 20:37 | NUR ---
DR WAKEFIELD NOTIFIED OF CONSULT.
[2019-07-14] VITALS: BP 136/67
[2019-07-14 06:46] LABS: HEMATOCRIT 43.1 % (42.0-52.0); HEMOGLOBIN 14.2 g/dl (14.0-18.0); MEAN CELL VOLUME 82.6 fl (80.0-94.0); MEAN CORPUSCULAR HGB 27.2 pg (27.0-31.0); MEAN CORPUSCULAR HGB CONC 32.9 g/dl (33.0-37.0); PLATELET COUNT AUTOMATED 56 10*3/uL (130-400); RED BLOOD COUNT 5.22 10*6/uL (4.50-5.90); WHITE BLOOD COUNT 10.1 10*3/uL (4.8-10.8)
[2019-07-14 06:59] LABS: BUN 13 mg/dl (7-24); CHLORIDE 106 mmol/L (98-107); CREATININE 0.95 mg/dL (0.70-1.30); PHOSPHOROUS 2.6 mg/dL (2.5-4.9); POTASSIUM 4.2 mmol/L (3.5-5.1); SODIUM 138 mmol/L (136-145)
[2019-07-14 07:39] LABS: TOTAL CELLS COUNTED 100 #CELLS
[2019-07-14 07:40] LABS: PLATELET SUFFICIENCY NORMAL (NORMAL)
[2019-07-14 08:00] VITALS: BP 118/62; BP 124/88
--- NOTE | 2019-07-14 08:27 | NUR ---
SPUTUM SPECIMEN SENT TO LAB CHANDRAKANT LYNCHCC
--- NOTE | 2019-07-14 09:00 | NUR ---
Bareback Rider in to talk to patient. Patient states lives at home with alone. There are no steps in the home. Physician: [facility], first name thania doesn't know last name [facility] Patient's level of ADLs: INDEPENDENT Patient has working utilities: all working DME: cane Follow-up physician's appointment after d/c: will be made by hospitalist nurse director upon discharge Does patient want to access PORTAL?: no Discharge plan discussed with patient he states he lives at home alone, he is independent in adls and ambulates with a cane, he states he has [facility] aids 3 days a week for 2 hours a day. he states he will return home when medically stable and continue with [facility], he denies any other needs at this time. ASHLEY HERNANDEZ
--- NOTE | 2019-07-14 09:54 | NUR ---
pt recieved EKG, was cooperative and pleasant. pt got up to restroom to bathe. Yoanna Paiz SPNRCC Ramona Bustillos SPNRCC
[2019-07-14] MEDS ORDERED: LYRICA100 M1 PO (10:53)
[2019-07-14] MEDS ORDERED: COREG3.125 MG PO (10:54)
[2019-07-14] MEDS ORDERED: LASIX40 MG PO (10:54)
[2019-07-14] MEDS ORDERED: ROBAXIN-750750 MG PO (10:55)
[2019-07-14] MEDS ORDERED: GLUCOPHAGE500 M1 PO (10:57)
[2019-07-14] MEDS ORDERED: ELIQUIS5 M1 PO (11:01)
[2019-07-14] MEDS ORDERED: LIPITOR80 MG PO (11:01)
[2019-07-14] MEDS ORDERED: XIFAXAN550 MG PO (11:02)
[2019-07-14] MEDS ORDERED: ADULT ASPIRIN R81 MG PO (11:04)
[2019-07-14] MEDS ORDERED: IMDUR SA30 MG PO (11:04)
[2019-07-14] MEDS ORDERED: MAGOX 400400 MG PO (11:04)
[2019-07-14] MEDS ORDERED: FERROUS SULFAT325 MG PO (11:05)
[2019-07-14] MEDS ORDERED: OMEPRAZOLE40 MG PO (11:06)
[2019-07-14] MEDS ORDERED: FIASP 100100 UNIT/1 SQ (11:09)
[2019-07-14] MEDS ORDERED: VITAMIN C500 M8 PO (11:20)
[2019-07-14] MEDS ORDERED: VITAMIN D31000 UNI1 PO (11:21)
[2019-07-14] MEDS ORDERED: KLOR-CON M2020 ME1 PO (11:23)
--- NOTE | 2019-07-14 11:45 | NUR ---
KNEE HIGH TEDS AND SCD'S APPLIED PER ORDER CHANDRAKANT CARRASCO SPIRVINCC
[2019-07-14 12:00] VITALS: BP 126/48
--- NOTE | 2019-07-14 12:20 | NUR ---
SCD'S PLACED ON PT.
--- NOTE | 2019-07-14 13:48 | NUR ---
pt resting comfortably, no complaints. pt has productive cough with movement. Yoanna Paiz SPNRCC Ramona Bustillos SPCRCC
[2019-07-14 16:00] VITALS: BP 128/54
[2019-07-14 20:00] VITALS: BP 127/60
[2019-07-15] VITALS: BP 146/71
--- NOTE | 2019-07-15 06:27 | NUR ---
PODIATRY NOTIFIED OF CONSULT
[2019-07-15 06:38] LABS: BUN 22 mg/dl (7-24); CHLORIDE 111 mmol/L (98-107); CREATININE 0.81 mg/dL (0.70-1.30); POTASSIUM 4.2 mmol/L (3.5-5.1); SODIUM 138 mmol/L (136-145)
[2019-07-15 06:44] LABS: HEMATOCRIT 42.4 % (42.0-52.0); MEAN CELL VOLUME 83.6 fl (80.0-94.0); MEAN CORPUSCULAR HGB 27.6 pg (27.0-31.0); MEAN PLATELET VOLUME 13.9 fl (9.6-12.3); PLATELET COUNT AUTOMATED 68 10*3/uL (130-400); RED BLOOD COUNT 5.07 10*6/uL (4.50-5.90); RED CELL DISTRI WIDTH 16.4 % (0-14.5); WHITE BLOOD COUNT 12.6 10*3/uL (4.8-10.8)
[2019-07-15 07:38] LABS: ATYPICAL LYMPHS 1 % (0-0); PLATELET SUFFICIENCY LOW (NORMAL); TOTAL CELLS COUNTED 100 #CELLS
[2019-07-15 08:00] VITALS: BP 112/60
[2019-07-15 08:30] VITALS: BP 124/76
--- NOTE | 2019-07-15 09:00 | NUR ---
case management visits with patient, he states he will be having a bronch tomorrow and possibly discharge home on Friday, patient denies any home needs, states has [facility] 3 days a week, case management will follow
--- NOTE | 2019-07-15 09:40 | NUR ---
PT MEDICATED W/TESSALON TYLER FOR C/O COUGH.
[2019-07-15 12:00] VITALS: BP 132/70
[2019-07-15 16:00] VITALS: BP 107/59
--- NOTE | 2019-07-15 16:18 | NUR ---
DR. THOMPSON NOTIFIED OF PT'S BS 412 AND COVERED W/INSULIN 22 UNITS ORDERED. RECHECK IN 1 HR.
--- NOTE | 2019-07-15 17:24 | NUR ---
DR. THOMPSON NOTIFIED OF PT'S BS NOW 356. OK TO ADMINISTER SS COVERAGE AND RECHECK IN 1 HR.
--- NOTE | 2019-07-15 18:44 | NUR ---
DR. THOMPSON NOTIFIED OF PT'S BS OF 306 AT THIS TIME. DO NOT TREAT THIS BS PT WILL BE RECEIVING LANTUS AT HS AND PT WILL BE NPO AFTER MIDNIGHT.
[2019-07-15 20:00] VITALS: BP 109/58
--- NOTE | 2019-07-15 20:15 | NUR ---
DR MACKAY AWARE OF PATIENT'S BLOOD PRESSURE, HEART RATE, AND DUE COREG. ALSO MADE AWARE OF PATIENT'S BLOOD SUGAR WITH ORDERED LANTUS DOSE AND AMOUNT OF HUMALOG ALREADY GIVEN. MADE AWARE OF PATIENT BEING NPO AT MIDNIGHT. STATES HE WILL DISCUSS WITH THE RESIDENT AND CALL ME BACK
--- NOTE | 2019-07-15 20:45 | NUR ---
DR MACKAY CALLED BACK AND STATED TO HOLD COREG AND LANTUS TONIGHT, BUT GIVE HUMALOG COVERAGE PER SLIDING SCALE. ELIQUIS BEING HELD DUE TO BRONCH IN AM.
[2019-07-16] VITALS (9 sets, daily range): BP systolic 114–155; BP diastolic 58–80
--- NOTE | 2019-07-16 03:46 | NUR ---
PATIENT RESTING IN BED WITH NO NEEDS MADE. BED IN LOWEST POSITION, CALL LIGHT IN REACH
--- NOTE | 2019-07-16 06:32 | NUR ---
PATIENT OFF FLOOR FOR SURGERY
[2019-07-16 06:34] LABS: BASO % 0.1 % (0.0-1.0); HEMATOCRIT 45.8 % (42.0-52.0); HEMOGLOBIN 14.8 g/dl (14.0-18.0); LYMPH # 1.7 10*3/uL (1.3-4.4); LYMPH % 15.7 % (27.0-41.0); MEAN CELL VOLUME 83.3 fl (80.0-94.0); MEAN CORPUSCULAR HGB 26.9 pg (27.0-31.0); MEAN CORPUSCULAR HGB CONC 32.3 g/dl (33.0-37.0); MEAN PLATELET VOLUME 13.3 fl (9.6-12.3); MONO # 0.7 10*3/uL (0.1-1.0); MONO % 6.6 % (3.0-9.0); NEUT # 8.5 10*3/uL (2.3-7.9); NEUT % 77.1 % (47.0-73.0); PLATELET COUNT AUTOMATED 76 10*3/uL (130-400); RED CELL DISTRI WIDTH 16.4 % (0-14.5); WHITE BLOOD COUNT 11.1 10*3/uL (4.8-10.8)
[2019-07-16 06:43] LABS: BUN 19 mg/dl (7-24); CHLORIDE 106 mmol/L (98-107); CREATININE 0.82 mg/dL (0.70-1.30); POTASSIUM 4.1 mmol/L (3.5-5.1); SODIUM 137 mmol/L (136-145)
--- NOTE | 2019-07-16 07:55 | NUR ---
PT BACK FROM SURGERY, CONDITION STABLE, ABLE TO DRINK FLUIDS, HAS HACKING COUGH AT PRESENT [place]A CA SP[facility]
--- NOTE | 2019-07-16 08:35 | NUR ---
PT RESTING IN BED. RESP-EASY AND REGULAR. HARSH NONPROD COUGH NOTED. NO C/O AT THIS TIME. RHONCHI NOTED CLEARS SOME WITH COUGH. WHEEZES NOTED ALSO. PT HAS STUDENT NURSE TODAY. WILL CON'T TO MONITOR.
--- NOTE | 2019-07-16 09:00 | NUR ---
case management visits with patient, he states he will return home when medically stable, he has aids from [facility] and states he doesn't need any other home services, case management will follow
--- NOTE | 2019-07-16 10:52 | NUR ---
pt is sleeping comfortably, no new complaints at this time and will continue to monitor. Yoanna Paiz SPCC
--- NOTE | 2019-07-16 12:16 | NUR ---
PT GIVEN FLUTTER THERAPY. PT STATES HE HAS TWO OF THEM AT HOME AND KNOWS HOW TO DO THERAPY.
--- NOTE | 2019-07-16 12:31 | NUR ---
Nutritional Support Services Note: Recommend 1800cal diet. Appetite is good for meals. BMI >40. will follow as needed. Julia Crystal Rdn Ld
--- NOTE | 2019-07-16 12:53 | NUR ---
pt is up in bed and eating lunch. pt is pleasant. [facility]
--- NOTE | 2019-07-16 16:00 | NUR ---
PT SLEEPING INB ED, AWAKENS EASILY. [id number], SEE EMAR. NO C/O AT THIS TIME. CALL LIGHT IN REACH. SEE SHIFT ASSESSMENT.
--- NOTE | 2019-07-16 19:00 | NUR ---
BEDSIDE REPORT OBTAINED. PATIENT VOICED NO COMPLAINTS. NO DISTRESS NOTED. CALL LIGHT WITHIN REACH.
[2019-07-17] VITALS: BP 147/80
--- NOTE | 2019-07-17 04:00 | NUR ---
PATIENT ASLEEP, EYES CLOSED. CALL LIGHT WITHIN REACH
[2019-07-17 06:36] LABS: HEMATOCRIT 44.1 % (42.0-52.0); HEMOGLOBIN 14.3 g/dl (14.0-18.0); MEAN CELL VOLUME 82.1 fl (80.0-94.0); MEAN CORPUSCULAR HGB 26.6 pg (27.0-31.0); MEAN CORPUSCULAR HGB CONC 32.4 g/dl (33.0-37.0); PLATELET COUNT AUTOMATED 80 10*3/uL (130-400); RED BLOOD COUNT 5.37 10*6/uL (4.50-5.90); RED CELL DISTRI WIDTH 15.9 % (0-14.5)
[2019-07-17 07:14] LABS: PLATELET SUFFICIENCY LOW (NORMAL); TARGET CELLS FEW; TOTAL CELLS COUNTED 100 #CELLS
[2019-07-17 07:22] LABS: BUN 17 mg/dl (7-24); CHLORIDE 113 mmol/L (98-107); CREATININE 0.78 mg/dL (0.70-1.30); POTASSIUM 4.3 mmol/L (3.5-5.1); SODIUM 140 mmol/L (136-145)
[2019-07-17 08:00] VITALS: BP 149/80
[2019-07-17 12:00] VITALS: BP 106/55
[2019-07-17 16:00] VITALS: BP 108/55
[2019-07-17 18:11] LABS: ACID FAST SPEC PROCESSING Concentration (.)
[2019-07-17 20:00] VITALS: BP 127/69
--- NOTE | 2019-07-17 20:09 | NUR ---
PATIENT RESTING IN BED WITH NO NEEDS MADE. BED IN LOWEST POSITION, CALL LIGHT IN REACH
[2019-07-18] VITALS: BP 122/70
--- NOTE | 2019-07-18 00:31 | NUR ---
24 HR chart check completed.
[2019-07-18 06:41] LABS: BASO % 0.1 % (0.0-1.0); EOS % 0.1 % (1.0-4.0); HEMATOCRIT 44.5 % (42.0-52.0); HEMOGLOBIN 14.7 g/dl (14.0-18.0); LYMPH # 2.7 10*3/uL (1.3-4.4); LYMPH % 20.3 % (27.0-41.0); MEAN CELL VOLUME 82.3 fl (80.0-94.0); MEAN CORPUSCULAR HGB 27.2 pg (27.0-31.0); MONO # 1.3 10*3/uL (0.1-1.0); MONO % 9.7 % (3.0-9.0); NEUT # 9.3 10*3/uL (2.3-7.9); NEUT % 69.3 % (47.0-73.0); PLATELET COUNT AUTOMATED 89 10*3/uL (130-400); RED BLOOD COUNT 5.41 10*6/uL (4.50-5.90); RED CELL DISTRI WIDTH 15.8 % (0-14.5); WHITE BLOOD COUNT 13.4 10*3/uL (4.8-10.8)
[2019-07-18 06:57] LABS: ALBUMIN 3.2 gm/dl (3.1-4.5); BUN 17 mg/dl (7-24); CHLORIDE 107 mmol/L (98-107); POTASSIUM 3.9 mmol/L (3.5-5.1); SGPT/ALT 31 U/L (12-78); SODIUM 138 mmol/L (136-145)
[2019-07-18 07:00] LABS: ALKALINE PHOSPHATASE 92 U/L (45-117); CREATININE 0.86 mg/dL (0.70-1.30); SGOT/AST 15 IU/L (3-35); TOTAL PROTEIN 6.6 gm/dL (6.4-8.2)
[2019-07-18 08:00] VITALS: BP 146/70
[2019-07-18 12:00] VITALS: BP 113/56
[2019-07-18] MEDS ORDERED: MUCINEX ER600 MG PO (13:26)
[2019-07-18] MEDS ORDERED: PREDNISONE10 MG PO (13:26)
[2019-07-18] MEDS ORDERED: DOXYCYCLINE100 M3 PO (13:26)
[2019-07-18 16:00] VITALS: BP 118/67
--- NOTE | 2019-07-18 17:00 | NUR ---
Discharge instructions reviewed with patient/family. Patient receptive and verbalizes understanding. Follow-up care arranged. Written instructions given to patient/family. HEPLOCK DISCONTINUED. PATIENT AMBULATORY OFF FLOOR. ANDREW ROMERO
== END 2019-07-18 17:00 | disposition home or self-care (01) | DRG 139 ==
LOC: ED 15:16 → 4E 17:52 → EDHOLD 17:52 → 4E 18:26
PROVIDERS: Emergency Medicine; Hospitalist; Internal Medicine; Internal Medicine Critical Care Medicine; ADMIT Internal Medicine
PROC: 0HBRXZZ Excision of Toe Nail, External Approach (ICD-10-PCS; 2019-07-15)
PROC: 0HBRXZZ Excision of Toe Nail, External Approach (ICD-10-PCS; 2019-07-15)
PROC: 0HBRXZZ Excision of Toe Nail, External Approach (ICD-10-PCS; 2019-07-15)
PROC: 0HBRXZZ Excision of Toe Nail, External Approach (ICD-10-PCS; 2019-07-15)
PROC: 0HBRXZZ Excision of Toe Nail, External Approach (ICD-10-PCS; 2019-07-15)
PROC: 0HBRXZZ Excision of Toe Nail, External Approach (ICD-10-PCS; 2019-07-15)
PROC: 0HBRXZZ Excision of Toe Nail, External Approach (ICD-10-PCS; 2019-07-15)
PROC: 0HBRXZZ Excision of Toe Nail, External Approach (ICD-10-PCS; 2019-07-15)
PROC: 0HBRXZZ Excision of Toe Nail, External Approach (ICD-10-PCS; 2019-07-15)
PROC: 0HBRXZZ Excision of Toe Nail, External Approach (ICD-10-PCS; 2019-07-15)
PROC: 0BC28ZZ Extirpation of Matter from Carina, Via Natural or Artificial Opening Endoscopic (ICD-10-PCS; principal; 2019-07-16)
PROC: 0BC98ZZ Extirpation of Matter from Lingula Bronchus, Via Natural or Artificial Opening Endoscopic (ICD-10-PCS; 2019-07-16)
PROC: 0BC48ZZ Extirpation of Matter from Right Upper Lobe Bronchus, Via Natural or Artificial Opening Endoscopic (ICD-10-PCS; 2019-07-16)
PROC: 0BC88ZZ Extirpation of Matter from Left Upper Lobe Bronchus, Via Natural or Artificial Opening Endoscopic (ICD-10-PCS; 2019-07-16)
PROC: 0BC58ZZ Extirpation of Matter from Right Middle Lobe Bronchus, Via Natural or Artificial Opening Endoscopic (ICD-10-PCS; 2019-07-16)
PROC: 0BC38ZZ Extirpation of Matter from Right Main Bronchus, Via Natural or Artificial Opening Endoscopic (ICD-10-PCS; 2019-07-16)
PROC: 0BC78ZZ Extirpation of Matter from Left Main Bronchus, Via Natural or Artificial Opening Endoscopic (ICD-10-PCS; 2019-07-16)
PROC: 0BC68ZZ Extirpation of Matter from Right Lower Lobe Bronchus, Via Natural or Artificial Opening Endoscopic (ICD-10-PCS; 2019-07-16)
PROC: 0BCB8ZZ Extirpation of Matter from Left Lower Lobe Bronchus, Via Natural or Artificial Opening Endoscopic (ICD-10-PCS; 2019-07-16)
DX: J18.9 Pneumonia, unspecified organism (principal); J44.1 Chronic obstructive pulmonary disease with (acute) exacerbation; J44.0 Chronic obstructive pulmonary disease with (acute) lower respiratory infection; E87.2 Acidosis; R74.8 Abnormal levels of other serum enzymes; I87.2 Venous insufficiency (chronic) (peripheral); F41.1 Generalized anxiety disorder; R00.1 Bradycardia, unspecified; E11.65 Type 2 diabetes mellitus with hyperglycemia; F17.210 Nicotine dependence, cigarettes, uncomplicated; B18.2 Chronic viral hepatitis C; K74.60 Unspecified cirrhosis of liver; M54.5 Low back pain; M17.10 Unilateral primary osteoarthritis, unspecified knee; I25.10 Atherosclerotic heart disease of native coronary artery without angina pectoris; D69.6 Thrombocytopenia, unspecified; I11.0 Hypertensive heart disease with heart failure; I50.42 Chronic combined systolic (congestive) and diastolic (congestive) heart failure; E87.8 Other disorders of electrolyte and fluid balance, not elsewhere classified; F32.5 Major depressive disorder, single episode, in full remission; E78.00 Pure hypercholesterolemia, unspecified; E11.42 Type 2 diabetes mellitus with diabetic polyneuropathy; G89.4 Chronic pain syndrome; M10.9 Gout, unspecified; J45.50 Severe persistent asthma, uncomplicated; B35.1 Tinea unguium; E11.51 Type 2 diabetes mellitus with diabetic peripheral angiopathy without gangrene; J20.8 Acute bronchitis due to other specified organisms; G47.33 Obstructive sleep apnea (adult) (pediatric); E66.01 Morbid (severe) obesity due to excess calories; K21.9 Gastro-esophageal reflux disease without esophagitis; Z95.5 Presence of coronary angioplasty implant and graft; Z79.4 Long term (current) use of insulin; Z68.41 Body mass index [BMI] 40.0-44.9, adult; Z71.6 Tobacco abuse counseling; Z86.718 Personal history of other venous thrombosis and embolism; Z88.0 Allergy status to penicillin; Z88.8 Allergy status to other drugs, medicaments and biological substances; Z88.1 Allergy status to other antibiotic agents; Z90.49 Acquired absence of other specified parts of digestive tract; Z98.1 Arthrodesis status; Z83.3 Family history of diabetes mellitus; Z82.49 Family history of ischemic heart disease and other diseases of the circulatory system; Z82.3 Family history of stroke; Z84.1 Family history of disorders of kidney and ureter; Z79.82 Long term (current) use of aspirin; Z79.899 Other long term (current) drug therapy; Z95.810 Presence of automatic (implantable) cardiac defibrillator; Z68.32 Body mass index [BMI] 32.0-32.9, adult

== ENCOUNTER 2019-08-18 17:29 | Inpatient (IN) | payer OTHER ==
[~2019-08-18] VITALS: Ht 177.8 cm; Wt 109.5 kg
[2019-08-18 17:29] VITALS: BP 105/56
[~2019-08-18 17:29] MED LIST changes: +ADULT ASPIRIN R81 MG PO; +FIASP 100100 UNIT/1 SQ; +GLUCOPHAGE500 M1 PO; +LIPITOR80 MG PO; +PROZAC20 MG PO; +VITAMIN D31000 UNI1 PO; +XIFAXAN550 MG PO
[2019-08-18 19:13] LABS: HEMATOCRIT 37.9 % (42.0-52.0); HEMOGLOBIN 12.8 g/dl (14.0-18.0); MEAN CELL VOLUME 82.9 fl (80.0-94.0); MEAN CORPUSCULAR HGB CONC 33.8 g/dl (33.0-37.0); MEAN PLATELET VOLUME 12.1 fl (9.6-12.3); PLATELET COUNT AUTOMATED 65 10*3/uL (130-400); RED BLOOD COUNT 4.57 10*6/uL (4.50-5.90); RED CELL DISTRI WIDTH 15.7 % (0-14.5); WHITE BLOOD COUNT 10.5 10*3/uL (4.8-10.8)
[2019-08-18 19:28] LABS: ALBUMIN 2.8 gm/dl (3.1-4.5); ALKALINE PHOSPHATASE 81 U/L (45-117); BUN 6 mg/dl (7-24); CHLORIDE 103 mmol/L (98-107); CREATININE 1.01 mg/dL (0.70-1.30); POTASSIUM 3.9 mmol/L (3.5-5.1); SGOT/AST 21 IU/L (3-35); SGPT/ALT 19 U/L (12-78); SODIUM 134 mmol/L (136-145); TOTAL PROTEIN 6.5 gm/dL (6.4-8.2)
[2019-08-18 19:42] LABS: BASOPHILS 2 % (0-1); PLATELET SUFFICIENCY LOW (NORMAL); POLYCHROMASIA SLIGHT; TOTAL CELLS COUNTED 100 #CELLS
[2019-08-18 21:01] LABS: INTERNATIONAL NORM RATIO 1.2 (2.0-3.5)
[2019-08-18 21:50] VITALS: BP 108/84
[2019-08-18] MEDS ORDERED: HYDROXYZINE PAM50 MG PO (22:49)
[2019-08-18] MEDS ORDERED: SPIRONOLACTONE50 M1 PO (22:50)
[2019-08-19] VITALS: BP 116/56
[2019-08-19 07:13] LABS: HEMATOCRIT 40.4 % (42.0-52.0); HEMOGLOBIN 13.1 g/dl (14.0-18.0); MEAN CELL VOLUME 83.8 fl (80.0-94.0); MEAN CORPUSCULAR HGB 27.2 pg (27.0-31.0); MEAN CORPUSCULAR HGB CONC 32.4 g/dl (33.0-37.0); MEAN PLATELET VOLUME 12.5 fl (9.6-12.3); PLATELET COUNT AUTOMATED 51 10*3/uL (130-400); RED BLOOD COUNT 4.82 10*6/uL (4.50-5.90); RED CELL DISTRI WIDTH 15.6 % (0-14.5); WHITE BLOOD COUNT 7.5 10*3/uL (4.8-10.8)
[2019-08-19 07:24] LABS: BUN 10 mg/dl (7-24); CHLORIDE 103 mmol/L (98-107); CREATININE 0.92 mg/dL (0.70-1.30); PHOSPHOROUS 2.7 mg/dL (2.5-4.9); POTASSIUM 4.5 mmol/L (3.5-5.1); SODIUM 136 mmol/L (136-145)
[2019-08-19 07:37] LABS: TOTAL CELLS COUNTED 100 #CELLS
[2019-08-19 07:38] LABS: PLATELET SUFFICIENCY LOW (NORMAL); POLYCHROMASIA SLIGHT
[2019-08-19 08:00] VITALS: BP 115/51
[2019-08-19 12:00] VITALS: BP 120/60
[2019-08-19 14:16] LABS: ABG BASE EXCESS 0.9 mmol/L (-2.0-2.0); ARTERIAL BLOOD GAS PH 7.431 (7.35-7.45)
[2019-08-19 16:00] VITALS: BP 116/65
[2019-08-19 20:00] VITALS: BP 104/53
[2019-08-20] VITALS: BP 106/54
[2019-08-20 07:16] LABS: HEMATOCRIT 39.2 % (42.0-52.0); HEMOGLOBIN 12.7 g/dl (14.0-18.0); MEAN CELL VOLUME 82.9 fl (80.0-94.0); MEAN CORPUSCULAR HGB 26.8 pg (27.0-31.0); MEAN CORPUSCULAR HGB CONC 32.4 g/dl (33.0-37.0); RED BLOOD COUNT 4.73 10*6/uL (4.50-5.90); RED CELL DISTRI WIDTH 15.5 % (0-14.5); WHITE BLOOD COUNT 15.8 10*3/uL (4.8-10.8)
[2019-08-20 07:18] LABS: PLATELET COUNT AUTOMATED 70 10*3/uL (130-400)
[2019-08-20 07:38] LABS: ALBUMIN 2.6 gm/dl (3.1-4.5); ALKALINE PHOSPHATASE 80 U/L (45-117); BUN 17 mg/dl (7-24); CHLORIDE 105 mmol/L (98-107); POTASSIUM 4.3 mmol/L (3.5-5.1); SGOT/AST 24 IU/L (3-35); SGPT/ALT 16 U/L (12-78); SODIUM 137 mmol/L (136-145); TOTAL PROTEIN 6.5 gm/dL (6.4-8.2)
[2019-08-20 07:47] LABS: PLATELET SUFFICIENCY LOW (NORMAL); TOTAL CELLS COUNTED 100 #CELLS
[2019-08-20 07:48] LABS: BURR CELLS FEW
[2019-08-20 08:00] VITALS: BP 100/41
[2019-08-20 12:00] VITALS: BP 108/49
[2019-08-20 16:00] VITALS: BP 114/53
[2019-08-20 20:00] VITALS: BP 103/57
[2019-08-21] VITALS: BP 115/68
[2019-08-21 04:05] LABS: IMMUNOGLOBULIN G, QNT 809 mg/dL (700-1600); IMMUNOGLOBULIN M, QNT 123 mg/dL (20-172); TOTAL PROTEIN, SERUM 5.8 g/dL (6.0-8.5)
[2019-08-21 06:45] LABS: HEMATOCRIT 39.8 % (42.0-52.0); HEMOGLOBIN 13.1 g/dl (14.0-18.0); MEAN CELL VOLUME 81.9 fl (80.0-94.0); MEAN CORPUSCULAR HGB CONC 32.9 g/dl (33.0-37.0); PLATELET COUNT AUTOMATED 67 10*3/uL (130-400); RED BLOOD COUNT 4.86 10*6/uL (4.50-5.90); RED CELL DISTRI WIDTH 15.2 % (0-14.5); WHITE BLOOD COUNT 11.9 10*3/uL (4.8-10.8)
[2019-08-21 07:13] LABS: ALBUMIN 2.7 gm/dl (3.1-4.5); ALKALINE PHOSPHATASE 87 U/L (45-117); BUN 20 mg/dl (7-24); CHLORIDE 105 mmol/L (98-107); CREATININE 0.91 mg/dL (0.70-1.30); POTASSIUM 4.2 mmol/L (3.5-5.1); SGOT/AST 27 IU/L (3-35); SGPT/ALT 20 U/L (12-78); SODIUM 135 mmol/L (136-145); TOTAL PROTEIN 6.8 gm/dL (6.4-8.2)
[2019-08-21 07:53] LABS: PLATELET SUFFICIENCY LOW (NORMAL); TOTAL CELLS COUNTED 100 #CELLS; TOXIC GRANULATION SLIGHT
[2019-08-21 07:54] LABS: POLYCHROMASIA SLIGHT
[2019-08-21 08:00] VITALS: BP 114/58
[2019-08-21 12:00] VITALS: BP 114/55
[2019-08-21 16:00] VITALS: BP 111/56
[2019-08-21 20:00] VITALS: BP 110/50
[2019-08-22] VITALS: BP 116/66
[2019-08-22 08:00] VITALS: BP 111/45
[2019-08-22 08:11] LABS: HEMATOCRIT 39.1 % (42.0-52.0); LYMPH # 0.9 10*3/uL (1.3-4.4); LYMPH % 8.9 % (27.0-41.0); MEAN CELL VOLUME 82.7 fl (80.0-94.0); MEAN CORPUSCULAR HGB 27.5 pg (27.0-31.0); MEAN CORPUSCULAR HGB CONC 33.2 g/dl (33.0-37.0); MONO # 0.9 10*3/uL (0.1-1.0); MONO % 8.7 % (3.0-9.0); NEUT # 8.1 10*3/uL (2.3-7.9); NEUT % 81.7 % (47.0-73.0); PLATELET COUNT AUTOMATED 71 10*3/uL (130-400); RED BLOOD COUNT 4.73 10*6/uL (4.50-5.90); RED CELL DISTRI WIDTH 15.3 % (0-14.5)
[2019-08-22 08:28] LABS: BUN 16 mg/dl (7-24); CHLORIDE 103 mmol/L (98-107); CREATININE 1.04 mg/dL (0.70-1.30); POTASSIUM 4.1 mmol/L (3.5-5.1); SODIUM 134 mmol/L (136-145)
[2019-08-22 11:52] VITALS: BP 111/65
[2019-08-22] MEDS ORDERED: ADMELOG100 UNIT/1 SQ (14:12)
[2019-08-22 15:08] LABS: ABG BASE EXCESS 1.8 mmol/L (-2.0-2.0); ARTERIAL BLOOD GAS PH 7.413 (7.35-7.45)
[2019-08-22 15:10] VITALS: BP 109/51
[2019-08-22 15:44] LABS: BILIRUBIN NEGATIVE (NEGATIVE); BLOOD NEGATIVE (NEGATIVE); CLARITY SL CLOUDY (CLEAR); COLOR YELLOW (YELLOW); GLUCOSE 3+ (NEGATIVE); KETONE NEGATIVE (NEGATIVE); LEUKO ESTERASE NEGATIVE (NEGATIVE); NITRITE NEGATIVE (NEGATIVE); SPECIFIC GRAVITY 1.015 (1.005-1.030); UROBILINOGEN 0.2 E.U./dl (0.2-1.0)
[2019-08-22 16:00] VITALS: BP 122/64
[2019-08-22 16:02] LABS: EPITHELIAL CELLS 0-2
[2019-08-22 16:03] LABS: BACTERIA TRACE; MUCOUS TRACE
[2019-08-22 17:59] LABS: ARTERIAL BLOOD GAS PH 7.433 (7.35-7.45)
[2019-08-22 20:00] VITALS: BP 116/62
[2019-08-23] VITALS: BP 122/63
[2019-08-23 00:06] LABS: ADENOVIRUS Negative (Negative); INFLUENZA A Negative (Negative); INFLUENZA B Negative (Negative); METAPNEUMOVIRUS Negative (Negative); PARAINFLUENZA 1 Negative (Negative); PARAINFLUENZA 2 Negative (Negative); PARAINFLUENZA 3 Negative (Negative); RHINOVIRUS Negative (Negative); RSV A Negative (Negative); RSV B Negative (Negative)
[2019-08-23 04:00] VITALS: BP 118/61
[2019-08-23 05:13] LABS: HEMATOCRIT 38.9 % (42.0-52.0); HEMOGLOBIN 12.8 g/dl (14.0-18.0); MEAN CELL VOLUME 81.2 fl (80.0-94.0); MEAN CORPUSCULAR HGB 26.7 pg (27.0-31.0); MEAN CORPUSCULAR HGB CONC 32.9 g/dl (33.0-37.0); PLATELET COUNT AUTOMATED 65 10*3/uL (130-400); RED BLOOD COUNT 4.79 10*6/uL (4.50-5.90); RED CELL DISTRI WIDTH 15.2 % (0-14.5); WHITE BLOOD COUNT 9.8 10*3/uL (4.8-10.8)
[2019-08-23 05:24] LABS: BUN 17 mg/dl (7-24); CHLORIDE 103 mmol/L (98-107); CREATININE 0.86 mg/dL (0.70-1.30); POTASSIUM 4.2 mmol/L (3.5-5.1); SODIUM 137 mmol/L (136-145)
[2019-08-23 05:38] LABS: TOTAL CELLS COUNTED 100 #CELLS
[2019-08-23 05:39] LABS: BURR CELLS FEW; OVALOCYTES FEW; PLATELET SUFFICIENCY LOW (NORMAL); POLYCHROMASIA SLIGHT; TARGET CELLS FEW
[2019-08-23 08:00] VITALS: BP 118/73
[2019-08-23 12:00] VITALS: BP 108/60
[2019-08-23 14:07] LABS: A/G RATIO 0.8 (0.7-1.7); ALBUMIN 2.6 g/dL (2.9-4.4); ALPHA-1-GLOBULIN 0.3 g/dL (0.0-0.4); ALPHA-2-GLOBULIN 0.9 g/dL (0.4-1.0); BETA GLOBULIN 1.1 g/dL (0.7-1.3); GAMMA GLOBULIN 0.9 g/dL (0.4-1.8); GLOBULIN, TOTAL 3.2 g/dL (2.2-3.9); M-SPIKE Not Observed g/dL (Not Observed); PE INTERPRETATION Comment: (.)
[2019-08-23 16:00] VITALS: BP 128/63
[2019-08-23 19:43] VITALS: BP 118/53
[2019-08-24] VITALS: BP 117/62
[2019-08-24 04:00] VITALS: BP 131/71
[2019-08-24 04:47] LABS: HEMATOCRIT 39.2 % (42.0-52.0); HEMOGLOBIN 12.8 g/dl (14.0-18.0); MEAN CELL VOLUME 82.2 fl (80.0-94.0); MEAN CORPUSCULAR HGB 26.8 pg (27.0-31.0); MEAN CORPUSCULAR HGB CONC 32.7 g/dl (33.0-37.0); PLATELET COUNT AUTOMATED 76 10*3/uL (130-400); RED BLOOD COUNT 4.77 10*6/uL (4.50-5.90); RED CELL DISTRI WIDTH 15.1 % (0-14.5)
[2019-08-24 05:00] LABS: BUN 19 mg/dl (7-24); CHLORIDE 100 mmol/L (98-107); SODIUM 136 mmol/L (136-145)
[2019-08-24 05:13] LABS: ATYPICAL LYMPHS 2 % (0-0); OVALOCYTES FEW; TOTAL CELLS COUNTED 100 #CELLS
[2019-08-24 05:14] LABS: BURR CELLS FEW; PLATELET SUFFICIENCY LOW (NORMAL)
[2019-08-24 08:00] VITALS: BP 108/67
[2019-08-24 12:00] VITALS: BP 118/52
[2019-08-24 16:00] VITALS: BP 118/57
[2019-08-24 20:00] VITALS: BP 101/57
[2019-08-25] VITALS: BP 99/40
[2019-08-25 07:23] LABS: BUN 19 mg/dl (7-24); CHLORIDE 97 mmol/L (98-107); CREATININE 0.93 mg/dL (0.70-1.30); POTASSIUM 3.2 mmol/L (3.5-5.1); SODIUM 135 mmol/L (136-145)
[2019-08-25 08:00] VITALS: BP 108/68
[2019-08-25 12:00] VITALS: BP 99/67
[2019-08-25 16:00] VITALS: BP 96/54; BP 99/67
[2019-08-25 20:00] VITALS: BP 113/58
[2019-08-26] VITALS: BP 112/68
[2019-08-26 00:04] LABS: ADENOVIRUS Negative (Negative); INFLUENZA A Negative (Negative); INFLUENZA B Negative (Negative); METAPNEUMOVIRUS Negative (Negative); PARAINFLUENZA 1 Negative (Negative); PARAINFLUENZA 2 Negative (Negative); PARAINFLUENZA 3 Negative (Negative); RHINOVIRUS Negative (Negative); RSV A Negative (Negative); RSV B Negative (Negative)
[2019-08-26 07:14] LABS: BASO % 0.1 % (0.0-1.0); EOS # 0.2 10*3/uL (0.0-0.4); EOS % 1.8 % (1.0-4.0); HEMOGLOBIN 13.7 g/dl (14.0-18.0); LYMPH # 1.9 10*3/uL (1.3-4.4); LYMPH % 18.1 % (27.0-41.0); MEAN CELL VOLUME 81.1 fl (80.0-94.0); MEAN CORPUSCULAR HGB 26.4 pg (27.0-31.0); MEAN CORPUSCULAR HGB CONC 32.6 g/dl (33.0-37.0); MEAN PLATELET VOLUME 12.5 fl (9.6-12.3); MONO # 1.1 10*3/uL (0.1-1.0); MONO % 10.4 % (3.0-9.0); NEUT # 7.2 10*3/uL (2.3-7.9); NEUT % 68.9 % (47.0-73.0); PLATELET COUNT AUTOMATED 86 10*3/uL (130-400); RED BLOOD COUNT 5.18 10*6/uL (4.50-5.90); RED CELL DISTRI WIDTH 14.6 % (0-14.5); WHITE BLOOD COUNT 10.4 10*3/uL (4.8-10.8)
[2019-08-26 07:23] LABS: BUN 18 mg/dl (7-24); CHLORIDE 98 mmol/L (98-107); CREATININE 0.94 mg/dL (0.70-1.30); POTASSIUM 2.9 mmol/L (3.5-5.1); SODIUM 136 mmol/L (136-145)
[2019-08-26 08:00] VITALS: BP 116/62
[2019-08-26 12:00] VITALS: BP 91/57
[2019-08-26 16:00] VITALS: BP 93/50
[2019-08-26 20:00] VITALS: BP 109/57
[2019-08-27] VITALS: BP 101/56
[2019-08-27 08:00] VITALS: BP 112/56
[2019-08-27 12:00] VITALS: BP 120/61
[2019-08-27 16:00] VITALS: BP 122/59
[2019-08-27 20:00] VITALS: BP 100/60
[2019-08-28] VITALS: BP 114/64
[2019-08-28 08:00] VITALS: BP 122/66
[2019-08-28 10:09] LABS: BUN 17 mg/dl (7-24); CHLORIDE 98 mmol/L (98-107); CREATININE 0.88 mg/dL (0.70-1.30); POTASSIUM 3.3 mmol/L (3.5-5.1); SODIUM 138 mmol/L (136-145)
[2019-08-28 12:00] VITALS: BP 104/61
[2019-08-28] MEDS ORDERED: LOSARTAN POTASS25 M1 PO (13:37)
[2019-08-28] MEDS ORDERED: BENZONATATE100 M1 PO (13:37)
[2019-08-28] MEDS ORDERED: LASIX40 MG PO (13:37)
[2019-08-28] MEDS ORDERED: PREDNISONE10 MG PO (13:37)
[2019-08-28] MEDS ORDERED: ELIQUIS2.5 M1 PO (13:40)
[2019-08-28 16:00] VITALS: BP 116/65
== END 2019-08-28 16:10 | disposition other institution (70) | DRG 137 ==
LOC: ED 17:29 → EDHOLD 20:39 → 5E 20:39 → 4E 20:39 → 5E 08-19 22:33 → ICCU 08-22 14:57 → 4E 08-24 10:08 → 5E 08-27 11:25
PROVIDERS: Emergency Medicine; Family Medicine; Internal Medicine; Internal Medicine Critical Care Medicine; Registered Nurse; Student in an Organized Health Care Education/Training Program; ADMIT Family Medicine
PROC: 02HV33Z Insertion of Infusion Device into Superior Vena Cava, Percutaneous Approach (ICD-10-PCS; principal; 2019-08-22)
PROC: B548ZZA Ultrasonography of Superior Vena Cava, Guidance (ICD-10-PCS; 2019-08-22)
PROC: 5A09357 Assistance with Respiratory Ventilation, Less than 24 Consecutive Hours, Continuous Positive Airway Pressure (ICD-10-PCS; 2019-08-22)
PROC: 5A09357 Assistance with Respiratory Ventilation, Less than 24 Consecutive Hours, Continuous Positive Airway Pressure (ICD-10-PCS; 2019-08-24)
PROC: 5A09357 Assistance with Respiratory Ventilation, Less than 24 Consecutive Hours, Continuous Positive Airway Pressure (ICD-10-PCS; 2019-08-26)
PROC: 5A09357 Assistance with Respiratory Ventilation, Less than 24 Consecutive Hours, Continuous Positive Airway Pressure (ICD-10-PCS; 2019-08-27)
PROC: 5A09357 Assistance with Respiratory Ventilation, Less than 24 Consecutive Hours, Continuous Positive Airway Pressure (ICD-10-PCS; 2019-08-28)
DX: J15.6 Pneumonia due to other Gram-negative bacteria (principal); J96.21 Acute and chronic respiratory failure with hypoxia; J96.22 Acute and chronic respiratory failure with hypercapnia; I50.43 Acute on chronic combined systolic (congestive) and diastolic (congestive) heart failure; E44.0 Moderate protein-calorie malnutrition; E87.2 Acidosis; D69.6 Thrombocytopenia, unspecified; E87.1 Hypo-osmolality and hyponatremia; R16.2 Hepatomegaly with splenomegaly, not elsewhere classified; J45.41 Moderate persistent asthma with (acute) exacerbation; K70.30 Alcoholic cirrhosis of liver without ascites; I11.0 Hypertensive heart disease with heart failure; E11.42 Type 2 diabetes mellitus with diabetic polyneuropathy; E78.00 Pure hypercholesterolemia, unspecified; F17.210 Nicotine dependence, cigarettes, uncomplicated; J44.1 Chronic obstructive pulmonary disease with (acute) exacerbation; F41.1 Generalized anxiety disorder; B18.2 Chronic viral hepatitis C; G47.33 Obstructive sleep apnea (adult) (pediatric); I25.10 Atherosclerotic heart disease of native coronary artery without angina pectoris; K21.9 Gastro-esophageal reflux disease without esophagitis; G89.29 Other chronic pain; J44.0 Chronic obstructive pulmonary disease with (acute) lower respiratory infection; E11.65 Type 2 diabetes mellitus with hyperglycemia; E66.9 Obesity, unspecified; E87.6 Hypokalemia; J20.9 Acute bronchitis, unspecified; I25.5 Ischemic cardiomyopathy; M10.9 Gout, unspecified; D64.9 Anemia, unspecified; M17.10 Unilateral primary osteoarthritis, unspecified knee; E55.9 Vitamin D deficiency, unspecified; F32.9 Major depressive disorder, single episode, unspecified; M54.5 Low back pain; I87.2 Venous insufficiency (chronic) (peripheral); Z95.810 Presence of automatic (implantable) cardiac defibrillator; Z71.6 Tobacco abuse counseling; Z68.33 Body mass index [BMI] 33.0-33.9, adult; Z79.4 Long term (current) use of insulin; Z86.718 Personal history of other venous thrombosis and embolism; Z88.8 Allergy status to other drugs, medicaments and biological substances; Z88.0 Allergy status to penicillin; Z88.1 Allergy status to other antibiotic agents; Z90.49 Acquired absence of other specified parts of digestive tract; Z98.1 Arthrodesis status; Z83.3 Family history of diabetes mellitus; Z82.49 Family history of ischemic heart disease and other diseases of the circulatory system; Z84.1 Family history of disorders of kidney and ureter; Z82.3 Family history of stroke; Z79.899 Other long term (current) drug therapy; Z79.82 Long term (current) use of aspirin; Z68.34 Body mass index [BMI] 34.0-34.9, adult

== ENCOUNTER 2019-11-02 11:30 | Emergency (ER) | payer OTHER ==
[~2019-11-02] VITALS: Ht 175.2 cm; Wt 106.6 kg
[~2019-11-02 11:30] MED LIST changes: +ADMELOG100 UNIT/1 SQ; +LOSARTAN POTASS25 M1 PO; +SPIRONOLACTONE50 M1 PO
[2019-11-02] MEDS ORDERED: CYCLOBENZAPRINE10 MG PO (14:23)
[2019-11-02] MEDS ORDERED: NORCO 5-325 TA1 EACH PO (14:23)
== END 2019-11-02 14:37 | disposition home or self-care (01) ==
LOC: ED 11:30
DX: M54.5 Low back pain (principal); I11.0 Hypertensive heart disease with heart failure; I50.9 Heart failure, unspecified; J44.9 Chronic obstructive pulmonary disease, unspecified; E11.9 Type 2 diabetes mellitus without complications; M10.9 Gout, unspecified; Z79.4 Long term (current) use of insulin; Z88.8 Allergy status to other drugs, medicaments and biological substances; Z88.1 Allergy status to other antibiotic agents; Z88.0 Allergy status to penicillin; Z79.899 Other long term (current) drug therapy; Z79.2 Long term (current) use of antibiotics; Z79.84 Long term (current) use of oral hypoglycemic drugs

== ENCOUNTER 2019-12-18 20:36 | Emergency (ER) | payer OTHER ==
[~2019-12-18] VITALS: Wt 108.9 kg
[~2019-12-18 20:36] MED LIST changes: +NORCO 5-325 TA1 EACH PO
== END 2019-12-18 23:43 | disposition home or self-care (01) ==
LOC: ED 20:36
DX: S92.511A Displaced fracture of proximal phalanx of right lesser toe(s), initial encounter for closed fracture (principal); Z88.0 Allergy status to penicillin; Z88.8 Allergy status to other drugs, medicaments and biological substances; Z79.899 Other long term (current) drug therapy; Z79.4 Long term (current) use of insulin; Z90.49 Acquired absence of other specified parts of digestive tract; X58.XXXA Exposure to other specified factors, initial encounter; Y93.9 Activity, unspecified; Y92.89 Other specified places as the place of occurrence of the external cause; Y99.8 Other external cause status

== ENCOUNTER 2020-01-24 13:48 | Inpatient (IN) | payer OTHER ==
[~2020-01-24] VITALS: Ht 175.3 cm; Wt 111.6 kg
[2020-01-24 14:14] VITALS: BP 141/69
[2020-01-24 14:44] LABS: BASO % 0.5 % (0.0-1.0); EOS # 0.1 10*3/uL (0.0-0.4); EOS % 0.6 % (1.0-4.0); HEMATOCRIT 38.1 % (42.0-52.0); LYMPH # 1.3 10*3/uL (1.3-4.4); LYMPH % 17.2 % (27.0-41.0); MEAN CORPUSCULAR HGB 25.8 pg (27.0-31.0); MEAN CORPUSCULAR HGB CONC 32.3 g/dl (33.0-37.0); MEAN PLATELET VOLUME 11.9 fl (9.6-12.3); MONO # 0.8 10*3/uL (0.1-1.0); MONO % 10.7 % (3.0-9.0); NEUT # 5.5 10*3/uL (2.3-7.9); NEUT % 70.9 % (47.0-73.0); PLATELET COUNT AUTOMATED 73 10*3/uL (130-400); RED BLOOD COUNT 4.76 10*6/uL (4.50-5.90); RED CELL DISTRI WIDTH 15.6 % (0-14.5); WHITE BLOOD COUNT 7.7 10*3/uL (4.8-10.8)
[2020-01-24 14:54] LABS: ACT PARTIAL THROMBO TIME 33.5 SECONDS (20.0-32.1); INTERNATIONAL NORM RATIO 1.1 (2.0-3.5)
[2020-01-24 15:01] LABS: ALBUMIN 3.7 gm/dl (3.1-4.5); ALKALINE PHOSPHATASE 112 U/L (45-117); BUN 26 mg/dl (7-24); CHLORIDE 105 mmol/L (98-107); CREATININE 1.29 mg/dL (0.70-1.30); LIPASE 34 U/L (73-393); POTASSIUM 4.5 mmol/L (3.5-5.1); SGOT/AST 34 IU/L (3-35); SGPT/ALT 35 U/L (12-78); SODIUM 137 mmol/L (136-145); TOTAL PROTEIN 7.9 gm/dL (6.4-8.2); TROPONIN I < 0.015 ng/ml (<0.045)
[2020-01-24 15:18] VITALS: BP 130/70
[2020-01-24 17:22] VITALS: BP 138/72
[2020-01-24 18:30] VITALS: BP 145/72
[2020-01-24 20:00] VITALS: BP 126/60
[2020-01-25] VITALS: BP 151/67
[2020-01-25 07:06] LABS: HEMATOCRIT 39.8 % (42.0-52.0); MEAN CORPUSCULAR HGB 25.5 pg (27.0-31.0); MEAN CORPUSCULAR HGB CONC 33.2 g/dl (33.0-37.0); PLATELET COUNT AUTOMATED 74 10*3/uL (130-400); RED BLOOD COUNT 5.17 10*6/uL (4.50-5.90); RED CELL DISTRI WIDTH 15.2 % (0-14.5); WHITE BLOOD COUNT 7.7 10*3/uL (4.8-10.8)
[2020-01-25 07:09] LABS: BUN 25 mg/dl (7-24); CHLORIDE 106 mmol/L (98-107); CREATININE 1.08 mg/dL (0.70-1.30); POTASSIUM 4.3 mmol/L (3.5-5.1); SODIUM 140 mmol/L (136-145)
[2020-01-25 07:46] LABS: ATYPICAL LYMPHS 2 % (0-0); BASOPHILS 1 % (0-1); PLATELET SUFFICIENCY LOW (NORMAL); TOTAL CELLS COUNTED 100 #CELLS
[2020-01-25 08:00] VITALS: BP 128/64
[2020-01-25] MEDS ORDERED: BUSPIRONE HCL30 MG PO (10:46)
[2020-01-25 12:00] VITALS: BP 122/55
[2020-01-25 16:00] VITALS: BP 122/65
[2020-01-25 20:00] VITALS: BP 123/58
[2020-01-26] VITALS: BP 139/86
[2020-01-26 06:20] LABS: EOS # 0.2 10*3/uL (0.0-0.4); EOS % 3.7 % (1.0-4.0); HEMATOCRIT 36.4 % (42.0-52.0); LYMPH # 1.5 10*3/uL (1.3-4.4); LYMPH % 35.9 % (27.0-41.0); MEAN CORPUSCULAR HGB 25.2 pg (27.0-31.0); MEAN CORPUSCULAR HGB CONC 31.9 g/dl (33.0-37.0); MEAN PLATELET VOLUME 12.2 fl (9.6-12.3); MONO # 0.6 10*3/uL (0.1-1.0); MONO % 15.6 % (3.0-9.0); NEUT # 1.8 10*3/uL (2.3-7.9); NEUT % 43.8 % (47.0-73.0); PLATELET COUNT AUTOMATED 71 10*3/uL (130-400); RED BLOOD COUNT 4.61 10*6/uL (4.50-5.90); RED CELL DISTRI WIDTH 15.4 % (0-14.5); WHITE BLOOD COUNT 4.1 10*3/uL (4.8-10.8)
[2020-01-26 06:41] LABS: BUN 17 mg/dl (7-24); CHLORIDE 105 mmol/L (98-107); CREATININE 0.87 mg/dL (0.70-1.30); POTASSIUM 3.8 mmol/L (3.5-5.1); SODIUM 141 mmol/L (136-145)
[2020-01-26 08:00] VITALS: BP 120/44
[2020-01-26 10:42] VITALS: BP 134/60
[2020-01-26 16:00] VITALS: BP 109/61
[2020-01-26 20:00] VITALS: BP 114/54
[2020-01-27] VITALS: BP 121/58
[2020-01-27 05:58] LABS: BASO % 0.5 % (0.0-1.0); EOS # 0.1 10*3/uL (0.0-0.4); HEMATOCRIT 36.6 % (42.0-52.0); LYMPH # 1.5 10*3/uL (1.3-4.4); MEAN CELL VOLUME 80.1 fl (80.0-94.0); MEAN CORPUSCULAR HGB 25.8 pg (27.0-31.0); MEAN CORPUSCULAR HGB CONC 32.2 g/dl (33.0-37.0); MEAN PLATELET VOLUME 13.1 fl (9.6-12.3); MONO # 0.5 10*3/uL (0.1-1.0); MONO % 12.6 % (3.0-9.0); NEUT # 1.9 10*3/uL (2.3-7.9); NEUT % 46.9 % (47.0-73.0); PLATELET COUNT AUTOMATED 66 10*3/uL (130-400); RED BLOOD COUNT 4.57 10*6/uL (4.50-5.90); RED CELL DISTRI WIDTH 15.4 % (0-14.5); WHITE BLOOD COUNT 4.1 10*3/uL (4.8-10.8)
[2020-01-27 08:30] VITALS: BP 142/66
[2020-01-27 12:00] VITALS: BP 136/83
[2020-01-27] MEDS ORDERED: NORCO 5-325 TA1 EACH PO (14:32)
== END 2020-01-27 14:38 | disposition home health service (06) | DRG 194 ==
LOC: ED 13:48 → EDHOLD 17:10 → 4E 17:10
PROVIDERS: Emergency Medicine; Internal Medicine; ADMIT Family Medicine
DX: I11.0 Hypertensive heart disease with heart failure (principal); D64.9 Anemia, unspecified; E87.2 Acidosis; I87.2 Venous insufficiency (chronic) (peripheral); E11.65 Type 2 diabetes mellitus with hyperglycemia; E11.42 Type 2 diabetes mellitus with diabetic polyneuropathy; G47.33 Obstructive sleep apnea (adult) (pediatric); I25.10 Atherosclerotic heart disease of native coronary artery without angina pectoris; K21.9 Gastro-esophageal reflux disease without esophagitis; G89.29 Other chronic pain; M54.5 Low back pain; F41.1 Generalized anxiety disorder; J44.1 Chronic obstructive pulmonary disease with (acute) exacerbation; Y90.9 Presence of alcohol in blood, level not specified; B19.20 Unspecified viral hepatitis C without hepatic coma; F33.2 Major depressive disorder, recurrent severe without psychotic features; F10.20 Alcohol dependence, uncomplicated; Z20.828 Contact with and (suspected) exposure to other viral communicable diseases; Z86.718 Personal history of other venous thrombosis and embolism; Z79.4 Long term (current) use of insulin; Z79.899 Other long term (current) drug therapy; Z83.3 Family history of diabetes mellitus; Z82.49 Family history of ischemic heart disease and other diseases of the circulatory system; Z84.1 Family history of disorders of kidney and ureter; Z79.82 Long term (current) use of aspirin; Z79.01 Long term (current) use of anticoagulants; Z88.1 Allergy status to other antibiotic agents; Z88.0 Allergy status to penicillin; Z90.49 Acquired absence of other specified parts of digestive tract; Z95.5 Presence of coronary angioplasty implant and graft; Z87.891 Personal history of nicotine dependence; I50.23 Acute on chronic systolic (congestive) heart failure

== ENCOUNTER 2020-01-30 19:25 | Inpatient (IN) | payer OTHER ==
[~2020-01-30] VITALS: Ht 175.2 cm; Wt 113.0 kg
[~2020-01-30 19:25] MED LIST changes: +BUSPIRONE HCL30 MG PO
[2020-01-30 19:43] VITALS: BP 112/53
[2020-01-30 20:09] LABS: BASO # 0.1 10*3/uL (0.0-0.1); BASO % 0.8 % (0.0-1.0); EOS # 0.2 10*3/uL (0.0-0.4); EOS % 2.8 % (1.0-4.0); HEMATOCRIT 37.8 % (42.0-52.0); LYMPH # 2.1 10*3/uL (1.3-4.4); LYMPH % 33.9 % (27.0-41.0); MEAN CELL VOLUME 80.3 fl (80.0-94.0); MEAN CORPUSCULAR HGB 25.7 pg (27.0-31.0); MEAN PLATELET VOLUME 13.5 fl (9.6-12.3); MONO # 0.9 10*3/uL (0.1-1.0); MONO % 14.5 % (3.0-9.0); NEUT # 2.9 10*3/uL (2.3-7.9); NEUT % 47.8 % (47.0-73.0); PLATELET COUNT AUTOMATED 77 10*3/uL (130-400); RED BLOOD COUNT 4.71 10*6/uL (4.50-5.90); RED CELL DISTRI WIDTH 15.4 % (0-14.5); WHITE BLOOD COUNT 6.1 10*3/uL (4.8-10.8)
[2020-01-30 20:18] LABS: ACT PARTIAL THROMBO TIME 32.8 SECONDS (20.0-32.1); INTERNATIONAL NORM RATIO 1.1 (2.0-3.5)
[2020-01-30 20:24] LABS: ALBUMIN 3.5 gm/dl (3.1-4.5); ALKALINE PHOSPHATASE 97 U/L (45-117); BUN 17 mg/dl (7-24); CHLORIDE 103 mmol/L (98-107); CREATININE 1.11 mg/dL (0.70-1.30); LIPASE 49 U/L (73-393); POTASSIUM 4.6 mmol/L (3.5-5.1); SGOT/AST 27 IU/L (3-35); SGPT/ALT 34 U/L (12-78); SODIUM 134 mmol/L (136-145); TOTAL PROTEIN 7.5 gm/dL (6.4-8.2)
[2020-01-30 20:28] LABS: TROPONIN I < 0.015 ng/ml (<0.045)
[2020-01-30 20:34] LABS: BILIRUBIN NEGATIVE (NEGATIVE); BLOOD NEGATIVE (NEGATIVE); CLARITY SL CLOUDY (CLEAR); COLOR YELLOW (YELLOW); GLUCOSE 3+ (NEGATIVE); KETONE NEGATIVE (NEGATIVE)
[2020-01-30 20:35] LABS: LEUKO ESTERASE NEGATIVE (NEGATIVE); NITRITE NEGATIVE (NEGATIVE); UROBILINOGEN 0.2 E.U./dl (0.2-1.0)
[2020-01-30 20:41] LABS: RBC 0-2 rbc/hpf (0-2)
[2020-01-30 20:42] LABS: BACTERIA 1+; EPITHELIAL CELLS 0-2; HYALINE CAST 0-2; MUCOUS TRACE; WBC 0-2 wbc/hpf (0-5)
[2020-01-30 23:20] VITALS: BP 130/63
--- NOTE | 2020-01-30 23:20 | NUR ---
A 64, admitted to , under the services of VERONIKA Alexander DO with a diagnosis of HYPERGLYCEMIA. Chief complaint is EDEMA. Patient arrived via bed from ER. Monitor applied. Initial assessment completed. Vital signs taken and recorded. VERONIKA ALEXANDER DO notified of admission to the unit. Orders received. See assessment for past medical history, medications and allergies. Patient and/or family oriented to unit. [facility] visitation policy reviewed. Clothing/patient valuable form completed. STEFANIE LYLES
--- NOTE | 2020-01-30 23:45 | NUR ---
DR. VERNON NOTIFIED OF UP TO DATE HOME MEDICATIONS
--- NOTE | 2020-01-31 01:22 | NUR ---
PT WATCHING TV AT THIS TIME. VOICES NO COMPLAINTS, CALL LIGHT IN REACH
--- NOTE | 2020-01-31 02:54 | NUR ---
PT IS SLEEPING AT THIS TIME. O2 INTACT. PT RESPIRATIONS EASY AND UNLABORED, CALL LIGHT IN REACH
--- NOTE | 2020-01-31 03:16 | NUR ---
24 HR chart check completed.
--- NOTE | 2020-01-31 04:03 | NUR ---
NORCO GIVEN PER ORDER FOR COMPLAINTS OF CHRONIC BACK PAIN. WILL MONITOR
--- NOTE | 2020-01-31 04:52 | NUR ---
NORCO APPEARS EFFECTIVE, PT SLEEPING AT THIS TIME. CALL LIGHT IN REACH
[2020-01-31 08:00] VITALS: BP 90/50
--- NOTE | 2020-01-31 08:51 | NUR ---
HELD AM DOSES OF IMDUR, COREG, LOSARTAN AND ALDACTONE FOR BP 90/50 MANUALLY.
--- NOTE | 2020-01-31 09:00 | NUR ---
Operations Manager in to talk to patient. Patient states lives at home with alone. There are no steps in the home. Physician: jabari meade [facility] Patient's level of ADLs: MINIMAL ASSIST Patient has working utilities: all working DME: home oxygen, portable tans, cane Follow-up physician's appointment after d/c: will be made by hospitalist nurse director upon discharge Does patient want to access PORTAL?: no Discharge plan discussed with patient, he stated he lives in an apartment alone, he has home oxygen and portable taks, doesn't remember name of company. he states he has [facility] aids 3 days a week and recently [facility] was ordered. discussed with him being a 30 days readmission and if he needed to go to a short term skilled for 24 hour care prior to returning home, patient declined, stated he is able to stay at home with the current home services. he stated he has a lady come into his apartment and fill his pill container so he would know which medications to take, he stated he discovered he wasn't taking any lasix and does not know when the lasix pill bottle is. he states once he gets some fluid off he will be able to return home and will make sure his lasix is in the pill box. case management will follow for any other needs. ASHLEY HERNANDEZ
--- NOTE | 2020-01-31 09:28 | NUR ---
PHYSICAL THERAPY Physical Therapy evaluation completed on 4E with full evaluation to follow. Low complexity PT evaluation per chart review and evaluation, [id number]. Recommend physical therapy per plan of care and Home Health upon discharge. Thank you for this referral. Heidy Sepulveda,PT,DPT
--- NOTE | 2020-01-31 10:18 | NUR ---
Occupational Therapy evaluation completed on with full evaluation to follow. Recommend occupational therapy per plan of care and return home upon discharge. Thank you for this referral. bAy Granados OTR/L
--- NOTE | 2020-01-31 10:34 | NUR ---
MEDICATED WITH PRN PO NORCO FOR BACK AND LEGS PAIN.
[2020-01-31 10:38] VITALS: BP 104/51
[2020-01-31 12:00] VITALS: BP 86/28
--- NOTE | 2020-01-31 12:38 | NUR ---
[facility] NOTIFIED OF CONSULT RE: CHF, LOW BP.
[2020-01-31 12:49] LABS: ABG BASE EXCESS 3.8 mmol/L (-2.0-2.0); ARTERIAL BLOOD GAS PH 7.442 (7.35-7.45)
--- NOTE | 2020-01-31 12:55 | NUR ---
TWO PHLEBOTEMISTS ATTEMPTED LAB DRAWS THIS AM, ATTEMPT BY MYSELF UNSUCCESSFUL, ORDER ENTERED TO OBTAIN MIDLINE PLACEMENT.
--- NOTE | 2020-01-31 13:36 | NUR ---
DR. CARTY IN TO SEE PATIENT RE: PLAN OF CARE. HE IS AWARE THAT PATIENT IN NEED OF MIDLINE FOR BLOOD DRAWS. ORDERS ENTERED FOR BP MEDICATION PARAMETERS.
--- NOTE | 2020-01-31 13:52 | NUR ---
PATIENT TO OR FOR MIDLINE PLACEMENT AT THIS TIME.
--- NOTE | 2020-01-31 14:58 | NUR ---
MIDLINE PLACEMENT SUCCESSFUL. MIDLINE TO RIGHT UPPER ARM PATENT WITH GOOD BLOOD RETURN. DRAWING AND SENDING LABS THAT WERE SCHEDULED FOR THIS MORNING.
[2020-01-31 15:56] LABS: BASO % 0.6 % (0.0-1.0); EOS # 0.1 10*3/uL (0.0-0.4); EOS % 2.5 % (1.0-4.0); HEMATOCRIT 34.9 % (42.0-52.0); LYMPH # 1.7 10*3/uL (1.3-4.4); LYMPH % 36.1 % (27.0-41.0); MEAN CELL VOLUME 79.3 fl (80.0-94.0); MEAN CORPUSCULAR HGB 25.5 pg (27.0-31.0); MEAN CORPUSCULAR HGB CONC 32.1 g/dl (33.0-37.0); MONO # 0.7 10*3/uL (0.1-1.0); MONO % 14.7 % (3.0-9.0); NEUT # 2.2 10*3/uL (2.3-7.9); NEUT % 45.7 % (47.0-73.0); PLATELET COUNT AUTOMATED 74 10*3/uL (130-400); RED CELL DISTRI WIDTH 15.2 % (0-14.5); WHITE BLOOD COUNT 4.8 10*3/uL (4.8-10.8)
[2020-01-31 16:00] VITALS: BP 106/51
[2020-01-31 16:08] LABS: BUN 18 mg/dl (7-24); CHLORIDE 105 mmol/L (98-107); CREATININE 0.95 mg/dL (0.70-1.30); SODIUM 138 mmol/L (136-145)
--- NOTE | 2020-01-31 16:39 | NUR ---
MEDICATED WITH PRN PO NORCO FOR BACK AND LEGS PAIN.
--- NOTE | 2020-01-31 17:30 | NUR ---
PRN PO NORCO EFFECTIVE, PER PATIENT.
--- NOTE | 2020-01-31 19:00 | NUR ---
REPORT RECEIVED FROM SANGEETHA MALAVE. PT LYING IN BED WATCHING TV. VOICES NO COMPLAINTS, CALL LIGHT IN REACH
[2020-01-31 20:00] VITALS: BP 125/51
--- NOTE | 2020-01-31 21:00 | NUR ---
PT REFUSING NIGHT DOSE OF COREG BECAUSE HIS HR IS "BELOW 60" AND HIS BLOOD PRESSURES "HAVE NOT BEEN GOOD TODAY".
--- NOTE | 2020-01-31 23:00 | NUR ---
PT LYING IN BED AT THIS TIME, NO COMPLAINTS VOICED. O2 INTACT, CALL LIGHT IN REACH
[2020-02-01] VITALS: BP 102/42
--- NOTE | 2020-02-01 00:55 | NUR ---
PT REFUSING BIPAP NOW BECAUSE HE IS EATING.
--- NOTE | 2020-02-01 01:00 | NUR ---
PT WATCHING TV AT THIS TIME EATING. NO COMPLAINTS VOICED. CALL LIGHT IN REACH
--- NOTE | 2020-02-01 03:30 | NUR ---
PT ON BIPAP AT THIS TIME
[2020-02-01 05:50] VITALS: BP 106/62
--- NOTE | 2020-02-01 07:25 | NUR ---
PHYSICAL THERAPY Patient seen this am 1;1 for therapy visit and was supine in bed following breathing treatment. Patient identified by name / while presenting with continuous O2-3L via NC. Patient reported no new c/o's other increased B feet sensitivity from recent bout of increased B LE edema. Patient transfers supine to sit EOB with SBA and sit to stand CGA x 1. Patient ambulates with use of wh walker, 50'x 1, CGA, demonstrating slow, steady vishnu, very cautious 180 turns and returned to bedside chair with mild fatigue. Patient SpO2 / HR remained WFL's throughout entire treatment and remained with call light, tray table and telphone. Will continue per POC as tolerated, total treatment time 14 minutes. Bismark Rolon, HOPPER ATTENDANT
--- NOTE | 2020-02-01 07:30 | NUR ---
PT SITTING UP IN CHAIR. VOICES NO CONCERNS AT THIS TIME. RESPS EASY AND NON LABORED. NO S/S OF DISTRESS. OXYGEN INTACT. VSS-BP 104/64 MANUALLY. WHITE BOARD UPDATED. POC DISCUSSED W PT. CALL LIGHT WITHIN REACH. DENIES SOB. 2+ BLE NOTED. MIDLINE PATENT.
--- NOTE | 2020-02-01 07:50 | NUR ---
BC THIS MORNING 362
[2020-02-01 08:00] VITALS: BP 118/50
[2020-02-01 08:03] LABS: BUN 18 mg/dl (7-24); CHLORIDE 103 mmol/L (98-107); CREATININE 1.08 mg/dL (0.70-1.30); POTASSIUM 4.2 mmol/L (3.5-5.1); SODIUM 136 mmol/L (136-145)
--- NOTE | 2020-02-01 08:10 | NUR ---
OT NOTE Pt was seen this A.M. 1:1 for 25 minute OT session. Upon arrival pt was supine in bed. Pt identified by name and and had complaints of B feet being sensitive ever since his edema went down. Pt presented to therapy with continuous 3L-O2 via NC which he remained on throughout the entire session. Pt transferred supine to sit EOB with supervision. While sitting EOB pt was educated and demonstrated on use of lower body adaptive equipment including hand tube bender and sock aid for increased I in self care tasks. Pt then donned B socks with use of the sock aid with supervision and only one verbal prompt. Pt then completed item retrevial with use of the hand tube bender. Sit to stand then completed from bed level with SBA and use of w/w for UE support followed by functional mobility to the bathroom and back with SBA. Challenged pt's dynamic standing tolerance needed for increased I and enhanced endurance, pt was able to tolerate aprox 5 minutes at a time before sitting due to fatigue. Pt was left sitting upright in the recliner with call light in hand, tray table in place, and phone in reach. Continue with rec D/C plan to return home with home health. MAYRA Holland/Benji
--- NOTE | 2020-02-01 09:00 | NUR ---
case management visits with patient, he is sitting in chair in room, oxygen on, states he will return home when discharged. case management will notify [facility] when patient is discharged, he also has [facility]. case management will follow
--- NOTE | 2020-02-01 10:11 | NUR ---
PT C/O 12/02 ACHING CHRONIC BACK PAIN. MEDICATED PER ORDER. WILL MONITOR FOR RELIEF. VOICES NO CONCERNS AT THIS TIME. VSS. RESPS EASY AND NON LABORED. CALL LIGHT WITHIN REACH.
--- NOTE | 2020-02-01 11:00 | NUR ---
NORCO EFFECTIVE PER PT
--- NOTE | 2020-02-01 11:37 | NUR ---
Nutritional Support Services Note: Appetite is good for meals. He is eating 100% of all meals. Declines a diet copy or need for instruction. Encouraged healthy eating and proper portion sizes. Will follow as needed. Julia Miranda
[2020-02-01 12:00] VITALS: BP 104/50
[2020-02-01 16:00] VITALS: BP 118/50; BP 79/59
--- NOTE | 2020-02-01 17:59 | NUR ---
PT C/O 12/02 ACHING CHRONIC BACK PAIN. MEDICATED PER ORDER. WILL MONITOR FOR RELIEF. VOICES NO OTHER CONCERNS AT THIS TIME. RESPS EASY AND NON LABORED. SITTING UP TO EAT DINNER. CALL LIGHT WITHIN REACH.
--- NOTE | 2020-02-01 18:31 | NUR ---
NORCO EFFECTIVE PER PT
--- NOTE | 2020-02-01 19:00 | NUR ---
REPORT RECEIVED FROM BERTHA MALAVE. PT LYING IN BED WATCHING TV AT THIS TIME. NO S/S OF DISTRESS NOTED. O2 INTACT. NO COMPLAINTS VOICED, CALL LIGHT IN REACH
[2020-02-01 20:00] VITALS: BP 103/50
--- NOTE | 2020-02-01 21:01 | NUR ---
DR. VERNON NOTIFIED OF CONSISTENT BP'S OF 100'S OVER 50'S AND PT COMPLAINT OF FEELING SHAKY. ORDERED TO HOLD COREG TONIGHT AND KEEP AN EYE ON BP
--- NOTE | 2020-02-01 23:12 | NUR ---
24 HR chart check completed.
[2020-02-02] VITALS: BP 112/57
--- NOTE | 2020-02-02 01:00 | NUR ---
PT SLEEPING AT THIS TIME, CALL LIGHT IN REACH
--- NOTE | 2020-02-02 03:00 | NUR ---
PT SLEEPING AT THIS TIME. O2 INTACT. CALL LIGHT IN REACH
--- NOTE | 2020-02-02 05:00 | NUR ---
PT AWAKE AND WATCHING TV. STATES "I FEEL GREAT THIS MORNING." NO COMPLAINTS VOICED. CALL LIGHT IN REACH
[2020-02-02 05:52] VITALS: BP 110/64
[2020-02-02 06:10] LABS: BUN 18 mg/dl (7-24); CHLORIDE 103 mmol/L (98-107); CREATININE 1.03 mg/dL (0.70-1.30); POTASSIUM 4.1 mmol/L (3.5-5.1); SODIUM 136 mmol/L (136-145)
--- NOTE | 2020-02-02 07:30 | NUR ---
PT RESTING IN BED. VOICES NO CONCERNS AT THIS TIME. RESPS EASY AND NON LABORED. NO S/S OF DISTRESS NOTED. VSS. WHITE BOARD UPDATED.POC DISCUSSED W PT. PTS BP 106/58. TRACE EDEMA TO BLE NOTED. OXYGEN INTACT. PT STATES HE WANTS TO GO HOME TODAY. CALL LIGHT WITHIN REACH.
--- NOTE | 2020-02-02 07:34 | NUR ---
Shift chart check completed.
--- NOTE | 2020-02-02 07:50 | NUR ---
PHYSICAL THERAPY Patient seen this am 1;1 for therapy visit and was resting supine in bed uoon therapist arrival. Patient identified by name / and presented this morning on room only only. Patient was pleasant voicing 5/10 chronic LBP, however stated otherwise he was feeling GREAT. Patient transfers SBA and ambulates to bathroom with use of wh walker, 20'x 2, SBA x 1, recording SpO2 93%, HR 77 bpm. Patient ambulated additional 60'x 1, wh walker, SBA and returned to EOB sit with mild fatigue. Following 1 minute seated rest, patient recorded SpO2 95%, HR 72 bpm and remained EOB with call light, tray table and cell phone. Will continue per POC as tolerated, total treatment time 15 minutes. Bismark Rolon, BASKETBALL SCOUT
[2020-02-02 08:00] VITALS: BP 106/58
--- NOTE | 2020-02-02 08:00 | NUR ---
OT NOTE Pt was seen this A.M. 1:1 for 18 minute OT session. Upon arrival pt was supine in bed. Pt identified by name and and had complaints of 5/10 "chronic" low back pain. Pt transferred supine to sit EOB I. While sitting EOB pt doffed and donned B socks with use of threader and sock aid with supervision. Sit to stand completed from bed level with supervision followed by functional mobility to the bathroom with supervision and use of w/w. There pt transferred on/off standard commode, completed toileting task, and doffed/donned new pants I. Pt then stood sink side while washing his hands and completing hair care I. Throughout activity pt's heart rate was 77 bpm and SpO2 93% on room air. Pt then returned to the EOB where he was left sitting upright with call light in reach and tray table in place. Continue with rec D/C plan to return home with home health. MAYRA Holland/Benji
--- NOTE | 2020-02-02 09:00 | NUR ---
case management visits with patient, he states he will return home when able possibly within the next two days. case management will resume [facility] and spoke to Kait from [facility] this am regarding resumption of services, case management will follow
--- NOTE | 2020-02-02 11:57 | NUR ---
PT C/O 12/02 ACHING CHRONIC BACK PAIN. MEDICATED PER ORDER. WILL MONITOR FOR RELIEF. RESPS EASY AND NON LABORED. CALL LIGHT WITHIN REACH
[2020-02-02 12:00] VITALS: BP 112/50
--- NOTE | 2020-02-02 12:09 | NUR ---
SPOKE W DR PALACIOS WHO STATES HE IS GOING TO PUT IN PARAMETERS FOR BLOOD PRESSURE MEDICATIONS
--- NOTE | 2020-02-02 12:50 | NUR ---
NORCO EFFECTIVE PER PT
[2020-02-02 16:00] VITALS: BP 121/61
--- NOTE | 2020-02-02 16:54 | NUR ---
PT C/O 12/02 ACHING BACK PAIN. MEDICATED PER ORDER. WILL MONITOR FOR RELIEF. VOICES NO OTHER CONCERNS AT THIS TIME. RESPS EASY AND NON LABORED. CALL LIGHT WITHIN REACH.
--- NOTE | 2020-02-02 17:50 | NUR ---
NORCO EFFEVTIVE PER PT
[2020-02-02 20:00] VITALS: BP 107/69
[2020-02-03] VITALS: BP 105/40
--- NOTE | 2020-02-03 00:01 | NUR ---
NORCO ADMINISTERED FOR PT C/O LOWER BACK AND LEG/FEET PAIN RATED A 7/10 ON THE PAIN SCALE. WILL CONTINUE TO MONITOR AND REASSESS.
--- NOTE | 2020-02-03 01:00 | NUR ---
PT ASLEEP. NO SIGNS OF DISCOMFORT OR DISTRESS NOTED.
--- NOTE | 2020-02-03 01:31 | NUR ---
24 HOUR CHART CHECK COMPLETE.
[2020-02-03 05:42] VITALS: BP 113/71
--- NOTE | 2020-02-03 06:02 | NUR ---
NORCO ADMINISTERED FOR PT C/O BACK PAIN RATED A 7/10 ON THE PAIN SCALE. WILL CONTINUE TO MONITOR AND REASSESS.
[2020-02-03 06:38] LABS: HEMATOCRIT 36.5 % (42.0-52.0); MEAN CELL VOLUME 81.1 fl (80.0-94.0); MEAN CORPUSCULAR HGB 25.1 pg (27.0-31.0); PLATELET COUNT AUTOMATED 59 10*3/uL (130-400); RED CELL DISTRI WIDTH 15.6 % (0-14.5); WHITE BLOOD COUNT 4.3 10*3/uL (4.8-10.8)
--- NOTE | 2020-02-03 06:49 | NUR ---
PT STATES NORCO WAS EFFECTIVE IN RELIEVING HIS PAIN. WILL CONTINUE TO MONITOR.
[2020-02-03 07:02] LABS: BUN 17 mg/dl (7-24); CHLORIDE 104 mmol/L (98-107); CREATININE 0.95 mg/dL (0.70-1.30); POTASSIUM 4.2 mmol/L (3.5-5.1); SODIUM 138 mmol/L (136-145)
[2020-02-03 07:29] LABS: PLATELET SUFFICIENCY LOW (NORMAL); TOTAL CELLS COUNTED 100 #CELLS
--- NOTE | 2020-02-03 07:35 | NUR ---
OT NOTE Pt was seen this A.M. 1:1 for 15 minute OT session. Upon arrival pt was supine in bed. Pt identified by name and and had no complaints at this time stating "I feel great and I actually feel healthy again." Sit to stand completed from bed level with supervision and use of w/w for UE support followed by functional mobility to the bathroom with supervision. Pt transferred on/off standard commode with supervision. Pt then stood sink side while washing his hands with supervision. Functional mobility completed back to the EOB where he was left sitting upright with call light in hand and tray tbale in place. Continue with rec D/C plan to return home with home health. MAYRA Holland/Benji
[2020-02-03 08:00] VITALS: BP 116/76
--- NOTE | 2020-02-03 08:00 | NUR ---
Patient resting quietly with no c/o discomfort. Respirations easy and regular. Vital signs stable. No overt distress. JASON WILSON
--- NOTE | 2020-02-03 08:20 | NUR ---
PHYSICAL THERAPY Patient seen this am 1;1 for therapy visit and was supine in bed following breathing treatment upon therapist arrival. Patient identified by name / and reports no new c/o's at this time. Patient recorded SpO2 95%, HR 72 bpm on room air and transfers supine to sit EOB with SBA x 1. Patient performed sit to stand transfer SBA and ambulated with use of wh walker, SBA, > 100'x 1, demonstrating slow, steady vishnu and no LOB. Patient stated he felt really good walking today with more energy / confidence prior to returning to EOB sit. Patient remained EOB with call light, tray table and telephone . Will continue per POC as tolerated, total treatment time 14 minutes. Bismark Rolon, LIQUOR GRINDER MILL OPERATOR
--- NOTE | 2020-02-03 09:00 | NUR ---
case management visits with patient, he will return home with [facility] and always best care when discharged. patient is a possibly discharge today. will notify [facility] when patient is discharged, no other needs at this time
[2020-02-03] MEDS ORDERED: NORCO 5-325 TA1 EACH PO (10:37)
[2020-02-03] MEDS ORDERED: ALDACTONE25 MG PO (10:37)
[2020-02-03] MEDS ORDERED: LOSARTAN POTASS25 M1 PO (10:37)
--- NOTE | 2020-02-03 11:46 | NUR ---
MEDICATED WITH PO NORCO ORDERED PER PT REQUEST FOR C/O BACK PAIN RATED 7/10.
[2020-02-03 12:00] VITALS: BP 98/46
--- NOTE | 2020-02-03 12:51 | NUR ---
case management notified Kait at [facility] patient is being discharged to home today
--- NOTE | 2020-02-03 13:10 | NUR ---
MEDICATION EFFECTIVE FOR PAIN.
[2020-02-03] MEDS ORDERED: FUROSEMIDE40 MG PO (14:33)
--- NOTE | 2020-02-03 15:00 | NUR ---
LEAVING VIA WHEELCHAIR/PA ESCORT.
--- NOTE | 2020-02-04 07:52 | NUR ---
PHYSICAL THERAPY CO-SIGN I approve of the Physical Therapy notes written above. Leigh Flynn PT
--- NOTE | 2020-02-04 08:40 | NUR ---
OCCUPATIONAL THERAPY CO-SIGN I approve of the Occupational Therapy notes written above. ROSE VIVEROS, OTR/L
== END 2020-02-03 15:00 | disposition home health service (06) | DRG 194 ==
LOC: ED 19:25 → 4E 22:40 → EDHOLD 22:40 → 4E 22:52
PROVIDERS: Internal Medicine; Physician Assistant; Registered Nurse; ADMIT Internal Medicine
PROC: 5A09357 Assistance with Respiratory Ventilation, Less than 24 Consecutive Hours, Continuous Positive Airway Pressure (ICD-10-PCS; principal; 2020-02-02)
PROC: 5A09357 Assistance with Respiratory Ventilation, Less than 24 Consecutive Hours, Continuous Positive Airway Pressure (ICD-10-PCS; 2020-02-03)
DX: I13.0 Hypertensive heart and chronic kidney disease with heart failure and stage 1 through stage 4 chronic kidney disease, or unspecified chronic kidney disease (principal); I50.43 Acute on chronic combined systolic (congestive) and diastolic (congestive) heart failure; E11.65 Type 2 diabetes mellitus with hyperglycemia; I87.2 Venous insufficiency (chronic) (peripheral); E44.0 Moderate protein-calorie malnutrition; E87.1 Hypo-osmolality and hyponatremia; J96.11 Chronic respiratory failure with hypoxia; D69.6 Thrombocytopenia, unspecified; E87.2 Acidosis; F32.9 Major depressive disorder, single episode, unspecified; J44.9 Chronic obstructive pulmonary disease, unspecified; I25.10 Atherosclerotic heart disease of native coronary artery without angina pectoris; K21.9 Gastro-esophageal reflux disease without esophagitis; N18.9 Chronic kidney disease, unspecified; I25.5 Ischemic cardiomyopathy; G47.33 Obstructive sleep apnea (adult) (pediatric); E11.22 Type 2 diabetes mellitus with diabetic chronic kidney disease; I95.9 Hypotension, unspecified; G89.29 Other chronic pain; M54.5 Low back pain; F17.210 Nicotine dependence, cigarettes, uncomplicated; F41.1 Generalized anxiety disorder; Z88.0 Allergy status to penicillin; Z88.1 Allergy status to other antibiotic agents; Z79.4 Long term (current) use of insulin; Z99.81 Dependence on supplemental oxygen; Z86.718 Personal history of other venous thrombosis and embolism; I25.2 Old myocardial infarction; Z95.810 Presence of automatic (implantable) cardiac defibrillator; Z95.5 Presence of coronary angioplasty implant and graft; Z90.49 Acquired absence of other specified parts of digestive tract; Z83.3 Family history of diabetes mellitus; Z82.49 Family history of ischemic heart disease and other diseases of the circulatory system; Z84.1 Family history of disorders of kidney and ureter; Z79.899 Other long term (current) drug therapy; Z79.01 Long term (current) use of anticoagulants; Z68.37 Body mass index [BMI] 37.0-37.9, adult

== ENCOUNTER 2020-02-14 13:12 | Inpatient (IN) | payer OTHER ==
[~2020-02-14] VITALS: Ht 175.3 cm; Wt 113.5 kg
[~2020-02-14 13:12] MED LIST changes: +ALDACTONE25 MG PO; +FUROSEMIDE40 MG PO
[2020-02-14 13:18] VITALS: BP 136/70
--- NOTE | 2020-02-14 14:00 | NUR ---
UNABLE TO OBTAIN IV SITE AFTER 2 ATTEMPTS, DR ROD AWARE.
[2020-02-14 14:11] LABS: ABG BASE EXCESS 1.3 mmol/L (-2.0-2.0); ARTERIAL BLOOD GAS PH 7.372 (7.35-7.45)
[2020-02-14 14:16] LABS: BASO % 0.3 % (0.0-1.0); EOS % 0.1 % (1.0-4.0); LYMPH # 0.9 10*3/uL (1.3-4.4); LYMPH % 7.4 % (27.0-41.0); MEAN CORPUSCULAR HGB 25.3 pg (27.0-31.0); MEAN CORPUSCULAR HGB CONC 31.3 g/dl (33.0-37.0); MEAN PLATELET VOLUME 12.1 fl (9.6-12.3); MONO # 0.9 10*3/uL (0.1-1.0); MONO % 7.7 % (3.0-9.0); NEUT # 10.1 10*3/uL (2.3-7.9); NEUT % 84.2 % (47.0-73.0); PLATELET COUNT AUTOMATED 98 10*3/uL (130-400); RED BLOOD COUNT 4.94 10*6/uL (4.50-5.90); RED CELL DISTRI WIDTH 15.9 % (0-14.5)
[2020-02-14 14:27] LABS: ACT PARTIAL THROMBO TIME 30.8 SECONDS (20.0-32.1); INTERNATIONAL NORM RATIO 1.1 (2.0-3.5)
[2020-02-14 14:33] LABS: ALBUMIN 3.8 gm/dl (3.1-4.5); ALKALINE PHOSPHATASE 110 U/L (45-117); BUN 28 mg/dl (7-24); CHLORIDE 99 mmol/L (98-107); CREATININE 1.39 mg/dL (0.70-1.30); LIPASE 70 U/L (73-393); POTASSIUM 4.7 mmol/L (3.5-5.1); SGOT/AST 111 IU/L (3-35); SGPT/ALT 117 U/L (12-78); SODIUM 134 mmol/L (136-145)
--- NOTE | 2020-02-14 14:49 | NUR ---
CLEANED PT. UP AFTER PT. URINATED ON HIMSELF. IV STILL NOT IN, DR. ROD AWARE.
[2020-02-14 15:02] LABS: BILIRUBIN 1+ (NEGATIVE); BLOOD TRACE-INTACT (NEGATIVE); CLARITY SL CLOUDY (CLEAR); COLOR YELLOW (YELLOW); GLUCOSE 3+ (NEGATIVE); KETONE NEGATIVE (NEGATIVE); LEUKO ESTERASE NEGATIVE (NEGATIVE); NITRITE NEGATIVE (NEGATIVE); UROBILINOGEN 0.2 E.U./dl (0.2-1.0)
[2020-02-14 15:03] LABS: BACTERIA 1+; EPITHELIAL CELLS TNTC; WBC 0-2 wbc/hpf (0-5)
[2020-02-14 17:30] VITALS: BP 141/77
--- NOTE | 2020-02-14 17:39 | NUR ---
PT. STATED THAT HE FELT LIKE HE BLACKED OUT. NOTIFIED DR. ROD.
[2020-02-14 18:30] VITALS: BP 147/84
[2020-02-14 19:44] VITALS: BP 142/84
[2020-02-14 19:46] VITALS: BP 164/85
--- NOTE | 2020-02-14 19:46 | NUR ---
SECOND EKG DONE . SECOND LAB DRAW DONE. PT STATES HE IS FEELING BETTER MONITOR SHOWING SINUS RHYTHM. CAMILLE MCMILLAN RN.
--- NOTE | 2020-02-14 20:13 | NUR ---
NOTIFIED FROM LAB OF CRITICAL TROPONIN 0.512.
--- NOTE | 2020-02-14 20:24 | NUR ---
DR. SWEET NOTIFIED OF CRITICAL TROPONIN 0.512, ADVISED TO CALL CARDIOLOGY CONSULT AND RELAY LAB RESULTS.
--- NOTE | 2020-02-14 20:25 | NUR ---
CALL PLACED TO DR. HARVEY ANSWERING SERVICE AT THIS TIME. AWAITING CALL BACK.
--- NOTE | 2020-02-14 20:32 | NUR ---
DR. BAUTISTA RETURNED CALL FOR CARDIOLOGY. ORDERS RECEIVED FOR REPEAT TROPONIN IN AM AND NPO AFTER MIDNIGHT FOR POSSIBLE STRESS TEST TO BE DETERMINED BY ROUNDING CARIDOLOGIST IN AM.
--- NOTE | 2020-02-14 22:44 | NUR ---
PRN NORCO GIVEN AT THIS TIME FOR PATIENT COMPLAINT OF BLE AND NECK PAIN 04/03 AT THIS TIME, A&O X3, CALL LIGHT WITHIN REACH, WILL CONTINUE TO MONITOR.
--- NOTE | 2020-02-14 22:53 | NUR ---
LOPEZ SWAB OBTAINED VIA LEFT NARES AT THIS TIME. SWAB INSERTED TO REQUIRED DEPTH AND SWIRLED FOR 30 SECONDS. PATIENT TOLERATED WELL, NO BLEEDING NOTED AFTER TESTING COMPLETED. WILL CONTINUE TO MONITOR
--- NOTE | 2020-02-14 23:26 | NUR ---
NOTIFIED FROM LAB OF CRITICAL TROPONIN 0.466 AT THIS TIME
--- NOTE | 2020-02-14 23:27 | NUR ---
DR. SWEET NOTIFIED AT THIS TIME OF CRITICAL TROPONIN 0.466 ALSO NOTIFIED THAT THIS RESULT IN TRENDING DOWN FROM PREVIOUS, NO ORDERS AT THIS TIME.
--- NOTE | 2020-02-14 23:30 | NUR ---
PATIENT STATED HIS PAIN WAS NOW A 6/10 IN HIS BLE AND NECK. A&O X3, CALL LIGHT WITHIN REACH, WILL CONTINUE TO MONITOR.
[2020-02-15] VITALS: BP 121/71
--- NOTE | 2020-02-15 00:08 | NUR ---
A 64, admitted to 5E, under the services of KEV Wu DO with a diagnosis of . Chief complaint is LEUKOCYTOSIS, ELEVATED TROPONIN, INTRACTABLE M&V. Patient arrived via bed from ER. Monitor applied. Initial assessment completed. Vital signs taken and recorded. KEV WU DO notified of admission to the unit. Orders received. See assessment for past medical history, medications and allergies. Patient and/or family oriented to [facility]. visitation policy reviewed. Clothing/patient valuable form completed. HENRIQUE WAYNE RN
--- NOTE | 2020-02-15 00:30 | NUR ---
PATIENT RESTING IN BED IN A POSITION OF COMFORT, NO SIGN OR SYMPTOMS OF PAIN OR DISCOMFORT NOTED AT THIS TIME, PRN NORCO APPEARS TO BE EFFECTIVE AT THIS TIME. CALL LIGHT WITHIN REACH, WILL CONTINUE TO MONITOR.
--- NOTE | 2020-02-15 02:07 | NUR ---
PATIENT MEDICATED AT THIS TIME WITH PRN TYLENOL AND FLEXIRIL FOR BILATERAL LEG PAIN AND CRAMPS. A&O X3, CALL LIGHT WITHIN REACH, WILL CONTINUE TO MONITOR.
--- NOTE | 2020-02-15 04:33 | NUR ---
PRN NORCO GIVEN PO AT THIS TIME WITH A SIP OF WATER FOR 9/10 PAIN IN BLE, PATIENT STATED THAT IT FEELS LIKE SOMEONE IS PUNCHING HIM IN HIS LEGS CONTINUOUSLY. A&O X3, CALL LIGHT WITHIN REACH, WILL CONTINUE TO MONITOR.
--- NOTE | 2020-02-15 05:25 | NUR ---
PATIENT RESTING IN BED IN A POSITION OF COMFORT AT THIS TIME WITH EYES CLOSED. RESPIRATIONS EASY AND NON-LABORED AT THIS TIME. CALL LIGHT WITHIN REACH, WILL CONTINUE TO MONITOR.
[2020-02-15 06:09] LABS: ALBUMIN 3.4 gm/dl (3.1-4.5); ALKALINE PHOSPHATASE 89 U/L (45-117); BUN 25 mg/dl (7-24); CHLORIDE 104 mmol/L (98-107); CREATININE 0.96 mg/dL (0.70-1.30); POTASSIUM 3.8 mmol/L (3.5-5.1); SGOT/AST 286 IU/L (3-35); SGPT/ALT 248 U/L (12-78); SODIUM 138 mmol/L (136-145); TOTAL PROTEIN 7.2 gm/dL (6.4-8.2)
[2020-02-15 06:15] LABS: BASO # 0.1 10*3/uL (0.0-0.1); BASO % 0.5 % (0.0-1.0); EOS # 0.2 10*3/uL (0.0-0.4); EOS % 1.5 % (1.0-4.0); HEMATOCRIT 35.5 % (42.0-52.0); LYMPH # 2.6 10*3/uL (1.3-4.4); LYMPH % 27.2 % (27.0-41.0); MEAN CELL VOLUME 81.1 fl (80.0-94.0); MEAN CORPUSCULAR HGB 25.6 pg (27.0-31.0); MEAN CORPUSCULAR HGB CONC 31.5 g/dl (33.0-37.0); MEAN PLATELET VOLUME 12.9 fl (9.6-12.3); MONO # 1.4 10*3/uL (0.1-1.0); MONO % 14.5 % (3.0-9.0); NEUT # 5.4 10*3/uL (2.3-7.9); PLATELET COUNT AUTOMATED 76 10*3/uL (130-400); RED BLOOD COUNT 4.38 10*6/uL (4.50-5.90); RED CELL DISTRI WIDTH 15.8 % (0-14.5); WHITE BLOOD COUNT 9.7 10*3/uL (4.8-10.8)
[2020-02-15 06:16] LABS: TROPONIN I 0.454 ng/ml (<0.045)
--- NOTE | 2020-02-15 06:17 | NUR ---
NOTIFIED OF CRITICAL TROPONIN 0.454.
--- NOTE | 2020-02-15 06:37 | NUR ---
MAKSIM SMILEY [id number] Please refer to the physician's history and physical for past medical history, comorbid conditions, and allergies. Diagnosis: LEUKOCYTOSIS ELEVATED TROPONIN INTRACTABLE N&V Tanmay Score: 17,AT RISK WOUND DESCRIPTIONS: Wound Number: 1 Location of the wound: right lateral groin red and blanchable. no open areas noted at time of assessment. No drainage noted at time of assessment. Wound Number: 2 Location of the wound: left lateral groin red and blanchable. No open areas noted at time of assessment. No draiange noted at time of assessment. Wound Number: 3 & 4 Location of the wound: coccyx Type of wound: DTI Size: 6.6cm x 6.7cm x <0.1cm Tunneling: none Undermining: none Sinus Tract: none Presence of Exudate: none Amount: none Color: Red, Purple Odor: None Periwound Skin Appearance: Normal Wound edges: approximated Pain (associated with wound): none at time of assessment How does patient state this happened? pt unable to state how this happened Surface the patient is resting on: Position Pro SKIN PREVENTION RECOMMENDATION: 1. Pressure redistribution support surface as appropriate 2. Elevate heels 3. Remove boots/TEDS every shift and reapply 4. Head of bed 30 degrees as tolerated 5. Assess nutrition and hydration 6. Manage moisture 7. Avoid the use of containment devices while in bed 8. Use absorptive products on surfaces limit layers of linens on bed 9. Turn and reposition every 1-2 hours in bed and every 1 hour in chair as tolerated 10. Weight shifts every 15 minutes while up in chair 11. Offloading with pillows or device to keep heels elevated off bed 12. Monitor skin at least every shift 13. Inspect under medical devices twice a day WOUND TREATMENT RECOMMENDATIONS: Continue DTI guidelines to coccyx. Continue wheelchair cushion when oob. Patient states he will care for these areas when he returns home since he knows they are there now. d/c calazime Cleanse right lateral groin and left lateral groin with soap and water pat areas dry then apply nystatin powder every 8 hours.
--- NOTE | 2020-02-15 07:59 | NUR ---
PHYSICAL THERAPY Nursing screen received and chart reviewed. PT evaluation received. Will follow. Thank you. Heidy Sepulveda,PT,DPT
[2020-02-15 08:00] VITALS: BP 130/80
--- NOTE | 2020-02-15 08:00 | NUR ---
Nursing screen and occupational therapy eval received. Will follow up with patient. Thank you. Aby Granados OTR/L
--- NOTE | 2020-02-15 09:39 | NUR ---
Dr. Logan notified of wound care recommendations.
--- NOTE | 2020-02-15 11:40 | NUR ---
PHYSICAL THERAPY Physical Therapy evaluation completed on 5E with full evaluation to follow. High complexity PT evaluation per chart review and evaluation, [id number]. Recommend physical therapy per plan of care and SNF upon discharge. Thank you for this referral. Heidy Sepulveda,PT,DPT.
[2020-02-15 12:00] VITALS: BP 109/61
--- NOTE | 2020-02-15 12:29 | NUR ---
Occupational Therapy evaluation completed on 5E with full evaluation to follow. Recommend occupational therapy per plan of care and SNF upon discharge. Thank you for this referral. Aby Granados OTR/L
--- NOTE | 2020-02-15 12:30 | NUR ---
NORCO GIVEN FOR C/O BLE PAIN. RATES 9/10 ON PAIN SCALE. WILL MONITOR.
--- NOTE | 2020-02-15 12:46 | NUR ---
Wallpaper Inspector And Shipper in to talk to patient. Patient states lives at HOME with ALONE. There are NO steps in the home. Physician: [facility] Pharmacy: [facility] health services: [facility] Patient's level of ADLs: INDEPENDENT Patient has working utilities: YES DME: OXYGEN,NEBULIZER Follow-up physician's appointment after d/c: WILL BE MADE BY HOSPITALIST NURSE DIRECTOR ON DISCHARGE Does patient want to access PORTAL?: NO Discharge plan PT LIVES AT HOME ALONE AND IS INDEPENDENT IN HIS CARE. PT DOES HAVE AID FROM [facility] 3 DAYS A WEEK 2 HOURS A DAY. HAS HOME OXYGEN AND A NEBULIZER. DENIES HE WILL HAVE ANY OTHER NEEDS AT HOME. PLANS TO RETURN HOME WHEN MEDICALLY STABLE. WILL CONTINUE TO FOLLOW. STATES HE WILL HAVE A RIDE HOME. KRYSTEN MULLINS
--- NOTE | 2020-02-15 13:30 | NUR ---
ANA M EFFECTIVE PER PT.
[2020-02-15 16:00] VITALS: BP 137/70
--- NOTE | 2020-02-15 18:28 | NUR ---
NORCO GIVEN FOR C/O BLE PAIN. RATES 9/10 ON PAIN SCALE. WILL MONITOR.
--- NOTE | 2020-02-15 19:20 | NUR ---
NORCO EFFECTIVE FOR BILAT LEG PAIN PER PT.
[2020-02-15 20:00] VITALS: BP 119/60
--- NOTE | 2020-02-15 21:52 | NUR ---
C/O CONSTIPATION. M.O.M. GIVEN PER ORDER FOR CONSTIPATION. SEE MAR.
[2020-02-16] VITALS: BP 103/51
--- NOTE | 2020-02-16 01:33 | NUR ---
24 HR chart check completed.
[2020-02-16 06:18] LABS: HEMATOCRIT 34.8 % (42.0-52.0); MEAN CELL VOLUME 79.1 fl (80.0-94.0); MEAN CORPUSCULAR HGB 25.2 pg (27.0-31.0); MEAN CORPUSCULAR HGB CONC 31.9 g/dl (33.0-37.0); PLATELET COUNT AUTOMATED 62 10*3/uL (130-400); RED CELL DISTRI WIDTH 15.6 % (0-14.5); WHITE BLOOD COUNT 6.5 10*3/uL (4.8-10.8)
[2020-02-16 06:40] LABS: BUN 19 mg/dl (7-24); CHLORIDE 106 mmol/L (98-107); CREATININE 0.84 mg/dL (0.70-1.30); POTASSIUM 4.1 mmol/L (3.5-5.1); SODIUM 138 mmol/L (136-145)
--- NOTE | 2020-02-16 06:43 | NUR ---
AFTER HAVING SPOKE WITH [facility] PATIENT WAS GIVEN NORCO FOR PAIN RATED "8" BACK. SEE MAR. PATIENT TOOK MED WITH SIPS OF WATER. PATIENT NPO AND HE IS TO GO TO [facility] FOR STRESS TEST AROUND 0830.
[2020-02-16 06:47] LABS: PLATELET SUFFICIENCY LOW (NORMAL); POLYCHROMASIA SLIGHT; TARGET CELLS FEW; TOTAL CELLS COUNTED 100 #CELLS
[2020-02-16 06:48] LABS: MICROCYTOSIS SLIGHT; OVALOCYTES FEW
--- NOTE | 2020-02-16 07:30 | NUR ---
NORCO EFFECTIVE FOR PAIN PER PT
[2020-02-16 08:00] VITALS: BP 132/58
--- NOTE | 2020-02-16 08:15 | NUR ---
PHYSICAL THERAPY Patient seen this am 1;1 for therapy visit and was resting supine in bed upon therapist arrival. Patient identified by name / and presented with continuous O2-3L via NC. Patient reports c/o of 8/10 L toe pain, along with 6/10 R toe, foot pain, including R LE cramping episodes. Patient able to wiggle R toes, however unable to complete no AROM L toes / ankle in supine. Patient transfers supine to sit EOB with MIN A, tolerating static EOB sit x 6 minutes, SBA. Patient able to commplete several sit to stand transfers, use of wh walker standing support, MIN A x 2, tolerating 80 seconds first attempt static stand, then 110 seconds during second trial. Patient voiced no increase in pain c/o, other than "burning" sensation / increased sensitivity in both L/R toes. Patient returned to supine in bed and remained with call light, tray table, telephone, bed alarm for safety. Will continue per POC as tolerated, total treatment time 16 minutes. Bismark Rolon, HIGH SCHOOL BIOLOGY TEACHER
--- NOTE | 2020-02-16 08:18 | NUR ---
OT NOTE Pt was seen this A.M. 1:1 for 18 minute OT session. Upon arrival pt was supine in bed. Pt identified by name and and had complaints of 6/10 R foot pain with emphasis on his toes "cramping" and 8/10 LLE toe pain reporting as a "burning feeling". Pt required maxA for donning B socks due to reports of weakness and pain, while donning L sock with any touch or sensation to toes pt would grimace and yell out in pain. Pt then transferred supine to sit EOB with Ruth. Two sit to stand transfers completed from bed level with Ruth and use of w/w for UE support with verbal prompts for proper hand placement for increased I and improved technique. Challenged pt's static standing tolerance needed for increased I in self care tasks and functional transfers, during first attempt pt was able to tolerate aprox 80 seconds and second attempt aprox 110 seconds both resulting in a seated rest due to pain and fatigue. Pt then transferred back into bed sit to supine with SBA. There he was left with call light in hand, tray table in place, and bed alarm activated for safety. Continue with POC as able. MAYRA Holland/Benji
--- NOTE | 2020-02-16 09:00 | NUR ---
PT TO [facility] FOR STRESS VIA WC
--- NOTE | 2020-02-16 09:05 | NUR ---
PRECERT IS REQUIRED FOR THE PATIENT TO GO TO SNF. AUTOMOBILE TAILLIGHT ASSEMBLER FAXED NEW REFERRAL TO [facility].
--- NOTE | 2020-02-16 10:01 | NUR ---
INFORMED CONSENT SIGNED FOR LEXISCAN STRESS TEST WITH DR. HARVEY. RESTING EKG NSR WITH PVC'S AND PAC'S. HR 62, BP 98/54. PULSE OX 99% ON 3L/NC WITH SLIGHT EXSPRIRATORY WHEEZE BILATERALLY. COMPLETED ONE MINUTE OF LEXISCAN PROTOCOL RECEIVING LEXISCAN 0.4MG OVER 10 SEC[address]RHYTHMIAS OR [address] CHANGES NOTED. PT C/O SOB AND BEING NAUSEATED. LAST RECOVERY HR 74, BP 108/70. WAITING NUCLEAR SCANNING IN STABLE CONDITION.
--- NOTE | 2020-02-16 11:57 | NUR ---
ROVING FRAME TENDER BACK TO ROOM TO TALK TO PT THIS AM AND HE IS IN AGREEMENT TO GO TO [facility]. REFERRAL WAS SENT.
[2020-02-16 12:00] VITALS: BP 143/72
--- NOTE | 2020-02-16 12:15 | NUR ---
PRECERT IS REQUIRED FOR [facility]. PATIENT HAS BEEN ACCEPTED TO [facility]. PATIENTS COVID RESULTS WILL BE REQUIRED BEFORE ADMITTING TO FACILITY.
--- NOTE | 2020-02-16 12:39 | NUR ---
PRECERT HAS BEEN STARTED.
--- NOTE | 2020-02-16 13:58 | NUR ---
PT REQUESTED AND GIVEN NORCO FOR C/O GEN PAIN PT RATES PAIN 5/10 WILL MONITOR
--- NOTE | 2020-02-16 14:30 | NUR ---
PT STATES THAT [place] HELPED WILL MONITOR
[2020-02-16 16:00] VITALS: BP 122/53
[2020-02-16 20:00] VITALS: BP 120/60
--- NOTE | 2020-02-16 22:19 | NUR ---
ANA M GIVEN PER ORDER FOR FEET PAIN RATED "8-9" PER PT. SEE MAR.
--- NOTE | 2020-02-16 23:15 | NUR ---
NORCO EFFECTIVE FOR FEET PAIN PER PT.
--- NOTE | 2020-02-16 23:51 | NUR ---
24 HR chart check completed.
[2020-02-17] VITALS: BP 118/60
--- NOTE | 2020-02-17 02:00 | NUR ---
SLEEPING. NO ACUTE DISTRESS NOTED.
--- NOTE | 2020-02-17 05:30 | NUR ---
ASSESSED COCCYX AND ONLY RED TO PINK WITH AREAS OF FLESH TONE AND PARTS JAYDA BUT MOSTLY NO BLANCHING. PATIENT REFUSED TO HAVE A DRESSING APPLIED TO SITE.
--- NOTE | 2020-02-17 05:38 | NUR ---
NORCO GIVEN PER ORDER FOR PAIN IN FEET RATED"7-8" SEE MAR
--- NOTE | 2020-02-17 06:35 | NUR ---
NORCO EFFECTIVE FOR FEET PAIN PER PT.
--- NOTE | 2020-02-17 07:45 | NUR ---
PHYSICAL THERAPY Patient seen this am 1:1 for therapy visit and was resting supine in bed upon therapist arrival. Patient identified by name / and was very pleasant this morning, voicing 7/10 L foot/toe pain, 5/10 R foot pain during all standing activities. Patient also presented with continuos O2 via NC, recording SpO2 96%, HR 60 bpm priot to treatment and transfers supine to sit EOB with CGA. Patient performed several sit to stand transfers at bedside, CGA x 1, then ambulated with walker, CGA, 30'x 1, demonstrating slow antalgic gait pattern. Patient was also very cautious during all 90/180 turns while returning to bedside chair in semi reclined position, B LE's elevated. Patient remained in chair with call light, cell phone, tray table and body alarm for safety. Will continue per POC as tolerated, total treatment time 16 minutes. Bismark Rolon, PERIPHERAL EDP EQUIPMENT OPERATOR
--- NOTE | 2020-02-17 07:50 | NUR ---
PT RESTING IN BED. NO DISTRSS NOTED. WILL MONITOR
--- NOTE | 2020-02-17 07:50 | NUR ---
OT NOTE Pt was seen this A.M. 1:1 for 20 minute OT session. Upon arrival pt was supine in bed. Pt identified by name and and had complaints of 8/10 L foot pain in his toes and 6/10 R foot pain in his toes. Pt transferred supine to sit EOB with SBA. While sitting EOB pt donned pants and B socks with SBA. Sit to stand completed from bed level with SBA followed by functional mobility into the bathroom with CGA due to pt declining use of the w/w resulting in unsteady gait increasing risk of falls. Pt was educated on safety issues and was encouraged to use the w/w, pt was agreeable. Functional mobility was then completed back to the recliner with CGA and use of w/w for UE support. Pt was left sitting upright in the recliner with call light in hand, tray table in place, and body alarm activated for safety. Continue with POC as able. SONI Holland
[2020-02-17 08:00] VITALS: BP 122/60
--- NOTE | 2020-02-17 08:23 | NUR ---
HUMAN SERVICES SUPERVISOR COMPLETED HENS.
--- NOTE | 2020-02-17 10:31 | NUR ---
PRECERT HAS BEEN OBTAINED. COAT CUTTER NOTIFIED RN HOSPITALIST COORDINATOR MICHAELA THAT THE PATIENT CAN GO TO [facility] IF MEDICALLY STABLE.
--- NOTE | 2020-02-17 10:35 | NUR ---
BEATRICE RIVERA WANTED TO MAKE SURE THE PATIENT KNEW THAT HE WOULD NOT BE ABLE TO GO OUT AND SMOKE DUE TO THE 14 DAY ISOLATION POLICY. PATIENT STATED HE DOES NOT WANT TO BE ISOLATED FOR 14 DAYS AND WOULD LIKE TO GO HOME WITH HOME HEALTH. SERVICE PLANNER ASHLEY. [employer] BUSINESS ANALYST ATTEMPTED TO REACH RN HOSPITALIST COORDINATOR MICHAELA, LEFT MESSAGE WITH MARIE.
--- NOTE | 2020-02-17 11:47 | NUR ---
[facility] IS REACHING OUT TO [facility] FOR CLARIFICATION ON THEIR ISOLATION POLICY.
[2020-02-17 12:00] VITALS: BP 127/58
--- NOTE | 2020-02-17 12:00 | NUR ---
SHAKER OPERATOR SPOKE WITH THE PATIENT AND EXPLAINED THE RESULTS OF SPEAKING WITH AVNI SPRING HILLSherrie. PATIENT NOW STATES HE DOES NOT HAVE ANY CLOTHES TO GO TO [facility]. SHAKER OPERATOR [facility]. SHAKER OPERATOR ATTEMPTED TO CALL NEXT OF KIN AND NUMBER LISTED IN BULLETIN NO ONE ANSWERED EITHER NUMBER. VINNIE IN [facility] WAS ABLE TO PROVIDE THE PATIENT WITH 1 PAIR OF SHORTS, 1 PAIR OF PANTS, AND 1 SHIRT.
[2020-02-17] MEDS ORDERED: NORCO 5-325 TA1 EACH PO (13:34)
--- NOTE | 2020-02-17 14:38 | NUR ---
PT REFUSED DC WOUND PHOTOS
[2020-02-17] MEDS ORDERED: LYRICA50 M1 PO (14:50)
--- NOTE | 2020-02-17 14:58 | NUR ---
PHYSICAL THERAPY CO-SIGN I approve of the Physical Therapy notes written above. JESU BYNMU, PT, DPT
--- NOTE | 2020-02-17 15:00 | NUR ---
PRESSURE STEAMER TENDER NOTIFIED OF PATIENT DISCHARGE. PRESSURE STEAMER TENDER SPOKE WITH FRIEDA DIGGS. PRESSURE STEAMER TENDER ARRANGED FOR A 5PM TRANSPORT WITH C[facility] TO [facility]. PRESSURE STEAMER TENDER FAXED DISCHARGE ORDERS TO [facility]. PRESSURE STEAMER TENDER ATTEMPTED TO CONTACT MENDEL PENA, WENT TO [employer] THAT HASNT BEEN SET UP YET. PRESSURE STEAMER TENDER ATTEMPTED TO CALL [facility], NO ONE ANSWERED. [facility] IS AWARE OF TRANSPORT TIME. PRESSURE STEAMER TENDER FAXED SCRIPTS TO [facility].
--- NOTE | 2020-02-17 15:03 | NUR ---
OCCUPATIONAL THERAPY CO-SIGN I approve of the Occupational Therapy notes written above. Aby Granados OTR/L
[2020-02-17 16:00] VITALS: BP 134/66
--- NOTE | 2020-02-17 17:25 | NUR ---
Discharge instructions reviewed with patient/family. Patient receptive and verbalizes understanding. Follow-up care arranged. Written instructions given to patient/family. MIRTHA BOSS
--- NOTE | 2020-02-17 17:31 | NUR ---
REPORT CALLED TO AVNI RIVERA
== END 2020-02-17 17:25 | disposition other institution (70) | DRG 720 ==
LOC: ED 13:12 → EDHOLD 15:59 → 5E 15:59
PROVIDERS: Emergency Medicine; Internal Medicine; ADMIT Internal Medicine
PROC: 4A02XM4 Measurement of Cardiac Total Activity, External Approach (ICD-10-PCS; principal; 2020-02-16)
PROC: 3E073KZ Introduction of Other Diagnostic Substance into Coronary Artery, Percutaneous Approach (ICD-10-PCS; 2020-02-16)
DX: A41.9 Sepsis, unspecified organism (principal); I21.4 Non-ST elevation (NSTEMI) myocardial infarction; K52.9 Noninfective gastroenteritis and colitis, unspecified; N17.0 Acute kidney failure with tubular necrosis; E87.2 Acidosis; E87.1 Hypo-osmolality and hyponatremia; R74.0 Nonspecific elevation of levels of transaminase and lactic acid dehydrogenase [LDH]; J44.9 Chronic obstructive pulmonary disease, unspecified; G47.33 Obstructive sleep apnea (adult) (pediatric); F32.9 Major depressive disorder, single episode, unspecified; I25.10 Atherosclerotic heart disease of native coronary artery without angina pectoris; B18.2 Chronic viral hepatitis C; R65.20 Severe sepsis without septic shock; E11.65 Type 2 diabetes mellitus with hyperglycemia; K74.60 Unspecified cirrhosis of liver; F41.1 Generalized anxiety disorder; I11.0 Hypertensive heart disease with heart failure; K21.9 Gastro-esophageal reflux disease without esophagitis; J96.11 Chronic respiratory failure with hypoxia; J96.12 Chronic respiratory failure with hypercapnia; I50.43 Acute on chronic combined systolic (congestive) and diastolic (congestive) heart failure; F10.10 Alcohol abuse, uncomplicated; Z79.4 Long term (current) use of insulin; Z95.810 Presence of automatic (implantable) cardiac defibrillator; Z95.5 Presence of coronary angioplasty implant and graft; Z86.718 Personal history of other venous thrombosis and embolism; Z82.49 Family history of ischemic heart disease and other diseases of the circulatory system; Z83.3 Family history of diabetes mellitus; Z84.1 Family history of disorders of kidney and ureter; Z88.0 Allergy status to penicillin; Z88.1 Allergy status to other antibiotic agents; Z88.8 Allergy status to other drugs, medicaments and biological substances; Z79.899 Other long term (current) drug therapy; Z79.01 Long term (current) use of anticoagulants; Z20.828 Contact with and (suspected) exposure to other viral communicable diseases

== ENCOUNTER 2020-03-20 20:04 | Inpatient (IN) | payer OTHER ==
[~2020-03-20] VITALS: Ht 177.8 cm; Wt 109.3 kg
[~2020-03-20 20:04] MED LIST changes: +LYRICA50 M1 PO
[2020-03-20 20:06] VITALS: BP 138/61
[2020-03-20 21:05] LABS: HEMATOCRIT 37.1 % (42.0-52.0); MEAN CELL VOLUME 78.9 fl (80.0-94.0); MEAN CORPUSCULAR HGB 24.9 pg (27.0-31.0); MEAN CORPUSCULAR HGB CONC 31.5 g/dl (33.0-37.0); MEAN PLATELET VOLUME 12.9 fl (9.6-12.3); PLATELET COUNT AUTOMATED 87 10*3/uL (130-400); RED CELL DISTRI WIDTH 16.5 % (0-14.5); WHITE BLOOD COUNT 14.4 10*3/uL (4.8-10.8)
[2020-03-20 21:10] VITALS: BP 130/64
[2020-03-20 21:14] LABS: ACT PARTIAL THROMBO TIME 30.4 SECONDS (20.0-32.1); INTERNATIONAL NORM RATIO 1.1 (2.0-3.5)
[2020-03-20 21:21] LABS: ALBUMIN 4.1 gm/dl (3.1-4.5); ALKALINE PHOSPHATASE 96 U/L (45-117); BUN 31 mg/dl (7-24); CHLORIDE 99 mmol/L (98-107); CREATININE 1.14 mg/dL (0.70-1.30); POTASSIUM 4.7 mmol/L (3.5-5.1); SGOT/AST 69 IU/L (3-35); SGPT/ALT 47 U/L (12-78); SODIUM 131 mmol/L (136-145); TOTAL CELLS COUNTED 100 #CELLS; TOTAL PROTEIN 7.9 gm/dL (6.4-8.2)
[2020-03-20 21:22] LABS: MICROCYTOSIS SLIGHT
[2020-03-20 21:23] LABS: PLATELET SUFFICIENCY LOW (NORMAL)
[2020-03-20 22:23] VITALS: BP 134/68
[2020-03-20 22:40] LABS: BILIRUBIN NEGATIVE (NEGATIVE); CLARITY CLEAR (CLEAR); COLOR YELLOW (YELLOW); GLUCOSE 2+ (NEGATIVE); KETONE NEGATIVE (NEGATIVE)
[2020-03-20 22:41] LABS: BACTERIA 2+; BLOOD 1+ (NEGATIVE); LEUKO ESTERASE NEGATIVE (NEGATIVE); NITRITE NEGATIVE (NEGATIVE); SPECIFIC GRAVITY 1.015 (1.005-1.030); UROBILINOGEN 0.2 E.U./dl (0.2-1.0)
[2020-03-21] VITALS: BP 134/68
[2020-03-21 01:27] LABS: ABG BASE EXCESS -1.3 mmol/L (-2.0-2.0); ARTERIAL BLOOD GAS PH 7.426 (7.35-7.45)
[2020-03-21 04:54] LABS: URINE AMPHETAMINES < 1000 (1000ng/ml); URINE BARBITURATES < 200 (200ng/ml); URINE BENZODIAZEPINES < 200 (200ng/ml); URINE CANNABINOIDS (THC) < 50 (50ng/ml); URINE COCAINE > 300 (300ng/ml); URINE METHADONE < 300 (300ng/ml); URINE OPIATES > 300 (300ng/ml); URINE PHENCYCLIDINE < 25 (25ng/ml)
[2020-03-21 06:17] LABS: BASO % 0.4 % (0.0-1.0); EOS # 0.1 10*3/uL (0.0-0.4); EOS % 0.5 % (1.0-4.0); HEMATOCRIT 34.4 % (42.0-52.0); INTERNATIONAL NORM RATIO 1.1 (2.0-3.5); LYMPH # 2.9 10*3/uL (1.3-4.4); LYMPH % 26.3 % (27.0-41.0); MEAN CELL VOLUME 78.9 fl (80.0-94.0); MEAN CORPUSCULAR HGB 25.2 pg (27.0-31.0); MEAN PLATELET VOLUME 11.9 fl (9.6-12.3); MONO # 1.4 10*3/uL (0.1-1.0); MONO % 12.9 % (3.0-9.0); NEUT # 6.5 10*3/uL (2.3-7.9); NEUT % 59.6 % (47.0-73.0); PLATELET COUNT AUTOMATED 69 10*3/uL (130-400); RED BLOOD COUNT 4.36 10*6/uL (4.50-5.90); RED CELL DISTRI WIDTH 16.4 % (0-14.5)
[2020-03-21 06:42] LABS: ALBUMIN 3.8 gm/dl (3.1-4.5); CHLORIDE 101 mmol/L (98-107); POTASSIUM 4.2 mmol/L (3.5-5.1); SODIUM 134 mmol/L (136-145)
[2020-03-21 06:45] LABS: ALKALINE PHOSPHATASE 88 U/L (45-117); BUN 24 mg/dl (7-24); CREATININE 0.93 mg/dL (0.70-1.30); SGOT/AST 60 IU/L (3-35); SGPT/ALT 44 U/L (12-78); TOTAL PROTEIN 7.3 gm/dL (6.4-8.2)
[2020-03-21 08:00] VITALS: BP 121/67
[2020-03-21 12:00] VITALS: BP 137/58
[2020-03-21 16:00] VITALS: BP 128/66
[2020-03-21 20:00] VITALS: BP 136/53
[2020-03-21 20:55] LABS: BUN 21 mg/dl (7-24); CHLORIDE 98 mmol/L (98-107); CREATININE 1.23 mg/dL (0.70-1.30); POTASSIUM 4.2 mmol/L (3.5-5.1); SODIUM 132 mmol/L (136-145)
[2020-03-22] VITALS (8 sets, daily range): BP systolic 111–146; BP diastolic 56–77
[2020-03-22 09:53] LABS: BASO % 0.1 % (0.0-1.0); HEMATOCRIT 33.9 % (42.0-52.0); LYMPH # 0.9 10*3/uL (1.3-4.4); LYMPH % 10.1 % (27.0-41.0); MEAN CELL VOLUME 77.6 fl (80.0-94.0); MEAN CORPUSCULAR HGB 25.4 pg (27.0-31.0); MEAN CORPUSCULAR HGB CONC 32.7 g/dl (33.0-37.0); MEAN PLATELET VOLUME 12.3 fl (9.6-12.3); MONO # 0.5 10*3/uL (0.1-1.0); MONO % 5.7 % (3.0-9.0); NEUT % 83.6 % (47.0-73.0); PLATELET COUNT AUTOMATED 82 10*3/uL (130-400); RED BLOOD COUNT 4.37 10*6/uL (4.50-5.90); RED CELL DISTRI WIDTH 16.4 % (0-14.5); WHITE BLOOD COUNT 8.4 10*3/uL (4.8-10.8)
[2020-03-22 10:06] LABS: ALBUMIN 3.5 gm/dl (3.1-4.5); ALKALINE PHOSPHATASE 96 U/L (45-117); BUN 23 mg/dl (7-24); CHLORIDE 99 mmol/L (98-107); CREATININE 1.05 mg/dL (0.70-1.30); SGOT/AST 38 IU/L (3-35); SGPT/ALT 43 U/L (12-78); SODIUM 133 mmol/L (136-145); TOTAL PROTEIN 7.7 gm/dL (6.4-8.2)
[2020-03-22] MEDS ORDERED: VANCOMYCIN2 GM/20 ML IV (10:13)
[2020-03-22] MEDS ORDERED: CEFEPIME HYDROCH1 GM IJ (10:13)
== END 2020-03-22 10:42 | disposition other institution (70) | DRG 190 ==
LOC: ED 20:04 → EDHOLD 21:50 → 5E 21:50
PROVIDERS: Family Medicine; Internal Medicine; Student in an Organized Health Care Education/Training Program; ADMIT Internal Medicine
PROC: 02HV33Z Insertion of Infusion Device into Superior Vena Cava, Percutaneous Approach (ICD-10-PCS; 2020-03-21)
PROC: B548ZZA Ultrasonography of Superior Vena Cava, Guidance (ICD-10-PCS; 2020-03-21)
PROC: 30233R1 Transfusion of Nonautologous Platelets into Peripheral Vein, Percutaneous Approach (ICD-10-PCS; principal; 2020-03-22)
DX: I21.4 Non-ST elevation (NSTEMI) myocardial infarction (principal); L03.116 Cellulitis of left lower limb; L03.115 Cellulitis of right lower limb; I11.0 Hypertensive heart disease with heart failure; I50.43 Acute on chronic combined systolic (congestive) and diastolic (congestive) heart failure; D50.9 Iron deficiency anemia, unspecified; D69.6 Thrombocytopenia, unspecified; E87.1 Hypo-osmolality and hyponatremia; F41.1 Generalized anxiety disorder; G47.33 Obstructive sleep apnea (adult) (pediatric); M17.10 Unilateral primary osteoarthritis, unspecified knee; J96.10 Chronic respiratory failure, unspecified whether with hypoxia or hypercapnia; I87.2 Venous insufficiency (chronic) (peripheral); E11.65 Type 2 diabetes mellitus with hyperglycemia; E83.41 Hypermagnesemia; E11.42 Type 2 diabetes mellitus with diabetic polyneuropathy; E11.51 Type 2 diabetes mellitus with diabetic peripheral angiopathy without gangrene; I25.119 Atherosclerotic heart disease of native coronary artery with unspecified angina pectoris; F14.10 Cocaine abuse, uncomplicated; F11.10 Opioid abuse, uncomplicated; K21.9 Gastro-esophageal reflux disease without esophagitis; E66.9 Obesity, unspecified; I25.5 Ischemic cardiomyopathy; J44.1 Chronic obstructive pulmonary disease with (acute) exacerbation; R74.0 Nonspecific elevation of levels of transaminase and lactic acid dehydrogenase [LDH]; R79.89 Other specified abnormal findings of blood chemistry; I25.2 Old myocardial infarction; Z95.5 Presence of coronary angioplasty implant and graft; Z95.810 Presence of automatic (implantable) cardiac defibrillator; Z90.49 Acquired absence of other specified parts of digestive tract; Z87.891 Personal history of nicotine dependence; Z83.3 Family history of diabetes mellitus; Z82.49 Family history of ischemic heart disease and other diseases of the circulatory system; Z88.0 Allergy status to penicillin; Z88.1 Allergy status to other antibiotic agents; Z88.8 Allergy status to other drugs, medicaments and biological substances; Z79.899 Other long term (current) drug therapy; Z79.4 Long term (current) use of insulin; Z79.01 Long term (current) use of anticoagulants; Z68.34 Body mass index [BMI] 34.0-34.9, adult

== ENCOUNTER 2020-03-26 18:06 | Emergency (ER) | payer OTHER ==
[~2020-03-26 18:06] MED LIST changes: +CEFEPIME HYDROCH1 GM IJ; +VANCOMYCIN2 GM/20 ML IV
[2020-03-26 19:38] LABS: RED BLOOD COUNT 4.32 10*6/uL (4.50-5.90); WHITE BLOOD COUNT 8.1 10*3/uL (4.8-10.8)
[2020-03-26 19:39] LABS: BASO % 0.4 % (0.0-1.0); EOS # 0.2 10*3/uL (0.0-0.4); EOS % 1.9 % (1.0-4.0); HEMATOCRIT 34.2 % (42.0-52.0); LYMPH # 0.9 10*3/uL (1.3-4.4); LYMPH % 11.1 % (27.0-41.0); MEAN CELL VOLUME 79.2 fl (80.0-94.0); MEAN CORPUSCULAR HGB 24.8 pg (27.0-31.0); MEAN CORPUSCULAR HGB CONC 31.3 g/dl (33.0-37.0); MONO % 11.9 % (3.0-9.0); NEUT % 74.2 % (47.0-73.0); PLATELET COUNT AUTOMATED 85 10*3/uL (130-400); RED CELL DISTRI WIDTH 17.1 % (0-14.5)
[2020-03-26 19:54] LABS: ALBUMIN 3.1 gm/dl (3.1-4.5); ALKALINE PHOSPHATASE 89 U/L (45-117); BUN 12 mg/dl (7-24); CHLORIDE 105 mmol/L (98-107); CREATININE 1.03 mg/dL (0.70-1.30); SGOT/AST 34 IU/L (3-35); SGPT/ALT 41 U/L (12-78); SODIUM 136 mmol/L (136-145); TOTAL PROTEIN 6.8 gm/dL (6.4-8.2)
[2020-03-26 19:57] LABS: TROPONIN I 0.114 ng/ml (<0.045)
[2020-03-26 20:49] LABS: BILIRUBIN NEGATIVE (NEGATIVE); CLARITY SL CLOUDY (CLEAR); COLOR YELLOW (YELLOW); GLUCOSE 3+ (NEGATIVE); KETONE NEGATIVE (NEGATIVE); SPECIFIC GRAVITY 1.005 (1.005-1.030)
[2020-03-26 20:50] LABS: BLOOD NEGATIVE (NEGATIVE); LEUKO ESTERASE NEGATIVE (NEGATIVE); NITRITE NEGATIVE (NEGATIVE); UROBILINOGEN 0.2 E.U./dl (0.2-1.0)
[2020-03-26 20:58] LABS: BACTERIA 1+; EPITHELIAL CELLS 0-2; HYALINE CAST 0-2; RBC 0-2 rbc/hpf (0-2); WBC 0-2 wbc/hpf (0-5)
== END 2020-03-26 21:39 | disposition short-term general hospital (02) ==
LOC: ED 18:06
PROVIDERS: Nurse Practitioner
DX: S72.142A Displaced intertrochanteric fracture of left femur, initial encounter for closed fracture (principal); I11.0 Hypertensive heart disease with heart failure; I50.9 Heart failure, unspecified; J44.9 Chronic obstructive pulmonary disease, unspecified; E11.9 Type 2 diabetes mellitus without complications; M10.9 Gout, unspecified; I25.2 Old myocardial infarction; E78.00 Pure hypercholesterolemia, unspecified; Z88.8 Allergy status to other drugs, medicaments and biological substances; Z88.0 Allergy status to penicillin; Z79.899 Other long term (current) drug therapy; Z79.84 Long term (current) use of oral hypoglycemic drugs; Z87.891 Personal history of nicotine dependence; Z79.4 Long term (current) use of insulin; X58.XXXA Exposure to other specified factors, initial encounter; Y93.89 Activity, other specified; Y92.89 Other specified places as the place of occurrence of the external cause; Y99.8 Other external cause status

== ENCOUNTER 2020-04-08 20:48 | Emergency (ER) | payer OTHER ==
[~2020-04-08] VITALS: Ht 182.8 cm; Wt 131.2 kg
[2020-04-08 21:14] LABS: BASO # 0.1 10*3/uL (0.0-0.1); BASO % 0.7 % (0.0-1.0); EOS # 0.1 10*3/uL (0.0-0.4); EOS % 1.5 % (1.0-4.0); HEMATOCRIT 29.1 % (42.0-52.0); LYMPH # 1.4 10*3/uL (1.3-4.4); LYMPH % 19.6 % (27.0-41.0); MEAN CELL VOLUME 79.1 fl (80.0-94.0); MEAN CORPUSCULAR HGB 24.5 pg (27.0-31.0); MEAN CORPUSCULAR HGB CONC 30.9 g/dl (33.0-37.0); MEAN PLATELET VOLUME 13.1 fl (9.6-12.3); MONO # 0.8 10*3/uL (0.1-1.0); MONO % 11.1 % (3.0-9.0); NEUT # 4.8 10*3/uL (2.3-7.9); NEUT % 66.8 % (47.0-73.0); PLATELET COUNT AUTOMATED 148 10*3/uL (130-400); RED BLOOD COUNT 3.68 10*6/uL (4.50-5.90); RED CELL DISTRI WIDTH 16.4 % (0-14.5); WHITE BLOOD COUNT 7.2 10*3/uL (4.8-10.8)
[2020-04-08 21:23] LABS: ACT PARTIAL THROMBO TIME 37.4 SECONDS (20.0-32.1); INTERNATIONAL NORM RATIO 1.1 (2.0-3.5)
[2020-04-08 21:28] LABS: ALBUMIN 2.4 gm/dl (3.1-4.5); ALKALINE PHOSPHATASE 134 U/L (45-117); BUN 15 mg/dl (7-24); CHLORIDE 102 mmol/L (98-107); CREATININE 1.08 mg/dL (0.70-1.30); POTASSIUM 4.5 mmol/L (3.5-5.1); SGOT/AST 16 IU/L (3-35); SGPT/ALT 24 U/L (12-78); SODIUM 135 mmol/L (136-145); TOTAL PROTEIN 7.6 gm/dL (6.4-8.2)
[2020-04-08 21:29] LABS: TROPONIN I < 0.015 ng/ml (<0.045)
== END 2020-04-08 22:45 ==
LOC: ED 20:48
PROVIDERS: Emergency Medicine
DX: K29.70 Gastritis, unspecified, without bleeding (principal); Z88.0 Allergy status to penicillin; Z88.1 Allergy status to other antibiotic agents; Z88.8 Allergy status to other drugs, medicaments and biological substances; Z79.899 Other long term (current) drug therapy; Z79.4 Long term (current) use of insulin; Z87.891 Personal history of nicotine dependence

== ENCOUNTER 2020-04-17 12:21 | Emergency (ER) | payer OTHER ==
[2020-04-17 14:26] LABS: BASO % 0.7 % (0.0-1.0); EOS # 0.2 10*3/uL (0.0-0.4); EOS % 2.5 % (1.0-4.0); HEMATOCRIT 32.4 % (42.0-52.0); LYMPH # 1.3 10*3/uL (1.3-4.4); LYMPH % 22.2 % (27.0-41.0); MEAN CELL VOLUME 79.4 fl (80.0-94.0); MEAN CORPUSCULAR HGB 24.3 pg (27.0-31.0); MEAN CORPUSCULAR HGB CONC 30.6 g/dl (33.0-37.0); MEAN PLATELET VOLUME 13.4 fl (9.6-12.3); MONO # 0.7 10*3/uL (0.1-1.0); MONO % 11.4 % (3.0-9.0); NEUT # 3.8 10*3/uL (2.3-7.9); NEUT % 62.9 % (47.0-73.0); PLATELET COUNT AUTOMATED 88 10*3/uL (130-400); RED BLOOD COUNT 4.08 10*6/uL (4.50-5.90); RED CELL DISTRI WIDTH 15.8 % (0-14.5)
[2020-04-17 14:34] LABS: ACT PARTIAL THROMBO TIME 35.4 SECONDS (20.0-32.1); INTERNATIONAL NORM RATIO 1.1 (2.0-3.5)
[2020-04-17 14:40] LABS: BUN 21 mg/dl (7-24); CHLORIDE 103 mmol/L (98-107); CREATININE 1.16 mg/dL (0.70-1.30); POTASSIUM 4.5 mmol/L (3.5-5.1); SODIUM 135 mmol/L (136-145)
[2020-04-17 14:45] LABS: ALBUMIN 2.9 gm/dl (3.1-4.5); ALKALINE PHOSPHATASE 136 U/L (45-117); SGOT/AST 12 IU/L (3-35); SGPT/ALT 22 U/L (12-78); TOTAL PROTEIN 7.8 gm/dL (6.4-8.2)
[2020-04-17 14:47] LABS: BILIRUBIN, DIRECT 0.2 mg/dL (0.0-0.2)
[2020-04-17 14:49] LABS: TROPONIN I < 0.015 ng/ml (<0.045)
== END 2020-04-17 15:14 | disposition home or self-care (01) ==
LOC: ED 12:21
PROVIDERS: Emergency Medicine
DX: G89.18 Other acute postprocedural pain (principal); M54.2 Cervicalgia; M25.552 Pain in left hip; I50.9 Heart failure, unspecified; I11.0 Hypertensive heart disease with heart failure; E11.42 Type 2 diabetes mellitus with diabetic polyneuropathy; K21.9 Gastro-esophageal reflux disease without esophagitis; J44.9 Chronic obstructive pulmonary disease, unspecified; I25.10 Atherosclerotic heart disease of native coronary artery without angina pectoris; Z88.0 Allergy status to penicillin; Z88.8 Allergy status to other drugs, medicaments and biological substances; Z88.1 Allergy status to other antibiotic agents; Z79.899 Other long term (current) drug therapy; Z79.4 Long term (current) use of insulin; Z87.891 Personal history of nicotine dependence

== ENCOUNTER 2020-06-28 17:17 | Emergency (ER) | payer OTHER ==
[~2020-06-28] VITALS: Ht 177.8 cm; Wt 111.1 kg
== END 2020-06-28 19:35 | disposition home or self-care (01) ==
LOC: ED 17:17
DX: M25.552 Pain in left hip (principal); Z88.8 Allergy status to other drugs, medicaments and biological substances; Z88.0 Allergy status to penicillin; Z79.899 Other long term (current) drug therapy; Z79.84 Long term (current) use of oral hypoglycemic drugs

== ENCOUNTER → 2020-08-09 | Outpatient (CLI) | payer OTHER ==
[2020-08-09 12:01] LABS: BASO % 0.5 % (0.0-1.0); EOS # 0.2 10*3/uL (0.0-0.4); EOS % 2.1 % (1.0-4.0); LYMPH # 2.5 10*3/uL (1.3-4.4); LYMPH % 31.4 % (27.0-41.0); MEAN CELL VOLUME 82.2 fl (80.0-94.0); MEAN CORPUSCULAR HGB 25.8 pg (27.0-31.0); MEAN CORPUSCULAR HGB CONC 31.4 g/dl (33.0-37.0); MONO # 1.1 10*3/uL (0.1-1.0); MONO % 13.5 % (3.0-9.0); NEUT # 4.2 10*3/uL (2.3-7.9); NEUT % 52.2 % (47.0-73.0); PLATELET COUNT AUTOMATED 76 10*3/uL (130-400); RED BLOOD COUNT 5.35 10*6/uL (4.50-5.90); RED CELL DISTRI WIDTH 19.5 % (0-14.5)
[2020-08-09 12:25] LABS: ALBUMIN 3.6 gm/dl (3.1-4.5); ALKALINE PHOSPHATASE 98 U/L (45-117); BUN 13 mg/dl (7-24); CHLORIDE 111 mmol/L (98-107); CREATININE 0.89 mg/dL (0.70-1.30); POTASSIUM 3.9 mmol/L (3.5-5.1); SGOT/AST 23 IU/L (3-35); SGPT/ALT 25 U/L (12-78); SODIUM 143 mmol/L (136-145); TOTAL PROTEIN 7.4 gm/dL (6.4-8.2)
== END | disposition home or self-care (01) ==
LOC: LAB 11:19
PROVIDERS: ATTEND Specialist/Technologist Athletic Trainer
DX: S72.142K Displaced intertrochanteric fracture of left femur, subsequent encounter for closed fracture with nonunion (principal); X58.XXXD Exposure to other specified factors, subsequent encounter

== ENCOUNTER 2020-11-27 21:27 | Inpatient (IN) | payer OTHER ==
[~2020-11-27] VITALS: Ht 177.8 cm; Wt 120.9 kg
[~2020-11-27 21:27] MED LIST changes: +CARVEDILOL6.25 MG PO; +METHOCARBAMOL500 M1 PO; +NOVOLOG10 ML SC; +OXYGEN NAS; +PERCOCET 10-321 EACH PO; +VITAMIN D31250 MC1 PO; +Ventolin 02.5 MG/3 M INH
[2020-11-27 21:33] VITALS: BP 95/42
[2020-11-27 22:34] LABS: BASO % 0.3 % (0.0-1.0); EOS # 0.1 10*3/uL (0.0-0.4); EOS % 1.2 % (1.0-4.0); HEMATOCRIT 23.8 % (42.0-52.0); LYMPH # 1.7 10*3/uL (1.3-4.4); LYMPH % 14.9 % (27.0-41.0); MEAN CELL VOLUME 83.8 fl (80.0-94.0); MEAN CORPUSCULAR HGB 26.8 pg (27.0-31.0); MEAN CORPUSCULAR HGB CONC 31.9 g/dl (33.0-37.0); MEAN PLATELET VOLUME 12.5 fl (9.6-12.3); MONO # 1.5 10*3/uL (0.1-1.0); MONO % 12.7 % (3.0-9.0); NEUT # 8.2 10*3/uL (2.3-7.9); NEUT % 70.4 % (47.0-73.0); NUCLEATED RED BLOOD CELL 0.2 % (0.0-0.0); PLATELET COUNT AUTOMATED 124 10*3/uL (130-400); RED BLOOD COUNT 2.84 10*6/uL (4.50-5.90); RED CELL DISTRI WIDTH 15.9 % (0-14.5); WHITE BLOOD COUNT 11.7 10*3/uL (4.8-10.8)
[2020-11-27 22:43] LABS: INTERNATIONAL NORM RATIO 1.2 (2.0-3.5)
[2020-11-27 23:02] LABS: ALBUMIN 2.6 gm/dl (3.1-4.5); ALKALINE PHOSPHATASE 108 U/L (45-117); BUN 21 mg/dl (7-24); CHLORIDE 107 mmol/L (98-107); CREATININE 0.98 mg/dL (0.70-1.30); POTASSIUM 3.8 mmol/L (3.5-5.1); SGOT/AST 56 IU/L (3-35); SGPT/ALT 37 U/L (12-78); SODIUM 136 mmol/L (136-145); TOTAL PROTEIN 6.8 gm/dL (6.4-8.2); TROPONIN I 0.027 ng/ml (<0.045)
[2020-11-27 23:37] VITALS: BP 104/61
[2020-11-28] VITALS (15 sets, daily range): BP systolic 90–143; BP diastolic 43–69
[2020-11-28 06:59] LABS: BASO % 0.3 % (0.0-1.0); EOS # 0.2 10*3/uL (0.0-0.4); EOS % 1.9 % (1.0-4.0); HEMATOCRIT 22.6 % (42.0-52.0); LYMPH % 19.3 % (27.0-41.0); MEAN CELL VOLUME 84.3 fl (80.0-94.0); MEAN CORPUSCULAR HGB 26.9 pg (27.0-31.0); MEAN CORPUSCULAR HGB CONC 31.9 g/dl (33.0-37.0); MEAN PLATELET VOLUME 12.4 fl (9.6-12.3); MONO # 1.3 10*3/uL (0.1-1.0); MONO % 12.4 % (3.0-9.0); NEUT # 6.7 10*3/uL (2.3-7.9); NEUT % 65.6 % (47.0-73.0); NUCLEATED RED BLOOD CELL 0.3 % (0.0-0.0); PLATELET COUNT AUTOMATED 122 10*3/uL (130-400); RED BLOOD COUNT 2.68 10*6/uL (4.50-5.90); RED CELL DISTRI WIDTH 16.1 % (0-14.5); WHITE BLOOD COUNT 10.3 10*3/uL (4.8-10.8)
[2020-11-28 07:10] LABS: ACT PARTIAL THROMBO TIME 24.2 SECONDS (20.0-32.1); INTERNATIONAL NORM RATIO 1.1 (2.0-3.5)
[2020-11-28 07:30] LABS: ALBUMIN 2.5 gm/dl (3.1-4.5); ALKALINE PHOSPHATASE 107 U/L (45-117); BUN 17 mg/dl (7-24); CHLORIDE 107 mmol/L (98-107); CREATININE 0.91 mg/dL (0.70-1.30); POTASSIUM 3.4 mmol/L (3.5-5.1); SGOT/AST 49 IU/L (3-35); SGPT/ALT 37 U/L (12-78); SODIUM 136 mmol/L (136-145); TOTAL PROTEIN 6.6 gm/dL (6.4-8.2)
[2020-11-28 07:34] LABS: FREE T4 1.28 ng/dl (0.76-1.46); THYROID STIM HORMONE (HS) 0.785 uIU/ml (0.358-4.75)
[2020-11-28] MEDS ORDERED: OXYCODONE HCL10 M1 PO (20:15)
[2020-11-28] MEDS ORDERED: VOLTAREN ARTHRI20 GM T (20:17)
[2020-11-29] VITALS: BP 123/69
[2020-11-29 05:15] VITALS: BP 128/69
[2020-11-29 06:28] LABS: BASO % 0.1 % (0.0-1.0); HEMATOCRIT 25.7 % (42.0-52.0); LYMPH # 1.2 10*3/uL (1.3-4.4); LYMPH % 7.9 % (27.0-41.0); MEAN CELL VOLUME 84.3 fl (80.0-94.0); MEAN CORPUSCULAR HGB 26.6 pg (27.0-31.0); MEAN CORPUSCULAR HGB CONC 31.5 g/dl (33.0-37.0); MEAN PLATELET VOLUME 12.7 fl (9.6-12.3); MONO # 1.4 10*3/uL (0.1-1.0); MONO % 9.3 % (3.0-9.0); NEUT # 12.4 10*3/uL (2.3-7.9); RED BLOOD COUNT 3.05 10*6/uL (4.50-5.90); RED CELL DISTRI WIDTH 16.1 % (0-14.5); WHITE BLOOD COUNT 15.1 10*3/uL (4.8-10.8)
[2020-11-29 06:31] LABS: PLATELET COUNT AUTOMATED 163 10*3/uL (130-400)
[2020-11-29 08:00] VITALS: BP 113/62
[2020-11-29 08:29] LABS: BUN 18 mg/dl (7-24); CHLORIDE 107 mmol/L (98-107); CREATININE 1.03 mg/dL (0.70-1.30); POTASSIUM 4.3 mmol/L (3.5-5.1); SODIUM 138 mmol/L (136-145)
[2020-11-29 12:00] VITALS: BP 108/56; BP 128/56
[2020-11-29 16:10] VITALS: BP 110/62
[2020-11-29 20:00] VITALS: BP 124/61
[2020-11-30] VITALS: BP 130/59
[2020-11-30 05:50] VITALS: BP 120/66
[2020-11-30 06:08] LABS: BASO % 0.1 % (0.0-1.0); HEMATOCRIT 23.8 % (42.0-52.0); LYMPH # 1.1 10*3/uL (1.3-4.4); LYMPH % 9.1 % (27.0-41.0); MEAN CELL VOLUME 85.3 fl (80.0-94.0); MEAN CORPUSCULAR HGB 25.8 pg (27.0-31.0); MEAN CORPUSCULAR HGB CONC 30.3 g/dl (33.0-37.0); MEAN PLATELET VOLUME 12.8 fl (9.6-12.3); MONO # 0.9 10*3/uL (0.1-1.0); MONO % 7.8 % (3.0-9.0); NEUT # 9.7 10*3/uL (2.3-7.9); NEUT % 82.5 % (47.0-73.0); PLATELET COUNT AUTOMATED 136 10*3/uL (130-400); RED BLOOD COUNT 2.79 10*6/uL (4.50-5.90); RED CELL DISTRI WIDTH 16.2 % (0-14.5); WHITE BLOOD COUNT 11.7 10*3/uL (4.8-10.8)
[2020-11-30 06:14] LABS: ALBUMIN 2.5 gm/dl (3.1-4.5); ALKALINE PHOSPHATASE 114 U/L (45-117); BUN 23 mg/dl (7-24); CHLORIDE 104 mmol/L (98-107); CREATININE 1.03 mg/dL (0.70-1.30); POTASSIUM 4.5 mmol/L (3.5-5.1); SGOT/AST 42 IU/L (3-35); SGPT/ALT 52 U/L (12-78); SODIUM 136 mmol/L (136-145); TOTAL PROTEIN 6.5 gm/dL (6.4-8.2)
[2020-11-30 08:00] VITALS: BP 120/72
[2020-11-30 12:00] VITALS: BP 124/75
[2020-11-30 16:00] VITALS: BP 111/57
[2020-11-30 20:00] VITALS: BP 120/54
[2020-12-01] VITALS: BP 113/53
[2020-12-01 06:25] LABS: BASO % 0.1 % (0.0-1.0); HEMATOCRIT 23.8 % (42.0-52.0); LYMPH # 1.2 10*3/uL (1.3-4.4); LYMPH % 10.2 % (27.0-41.0); MEAN CELL VOLUME 85.3 fl (80.0-94.0); MEAN CORPUSCULAR HGB 25.8 pg (27.0-31.0); MEAN CORPUSCULAR HGB CONC 30.3 g/dl (33.0-37.0); MEAN PLATELET VOLUME 12.6 fl (9.6-12.3); MONO # 0.9 10*3/uL (0.1-1.0); MONO % 7.6 % (3.0-9.0); NEUT # 9.2 10*3/uL (2.3-7.9); NEUT % 81.4 % (47.0-73.0); PLATELET COUNT AUTOMATED 120 10*3/uL (130-400); RED BLOOD COUNT 2.79 10*6/uL (4.50-5.90); RED CELL DISTRI WIDTH 15.9 % (0-14.5); WHITE BLOOD COUNT 11.3 10*3/uL (4.8-10.8)
[2020-12-01 08:00] VITALS: BP 118/64
[2020-12-01] MEDS ORDERED: ZITHROMAX250 MG PO ×2 (10:58)
[2020-12-01] MEDS ORDERED: PREDNISONE10 MG PO (10:58)
== END 2020-12-01 12:27 | disposition home or self-care (01) | DRG 137 ==
LOC: ED 21:27 → 4E 11-28 03:40 → EDHOLD 11-28 03:40 → 4E 11-28 07:55
PROVIDERS: Emergency Medicine; Internal Medicine; Social Worker Clinical; ADMIT Internal Medicine; ATTEND Internal Medicine
PROC: 02HV33Z Insertion of Infusion Device into Superior Vena Cava, Percutaneous Approach (ICD-10-PCS; principal; 2020-11-28)
PROC: B548ZZA Ultrasonography of Superior Vena Cava, Guidance (ICD-10-PCS; 2020-11-28)
DX: J15.6 Pneumonia due to other Gram-negative bacteria (principal); J44.1 Chronic obstructive pulmonary disease with (acute) exacerbation; K92.2 Gastrointestinal hemorrhage, unspecified; E44.0 Moderate protein-calorie malnutrition; J96.10 Chronic respiratory failure, unspecified whether with hypoxia or hypercapnia; I50.42 Chronic combined systolic (congestive) and diastolic (congestive) heart failure; D64.9 Anemia, unspecified; D69.6 Thrombocytopenia, unspecified; R74.01 Elevation of levels of liver transaminase levels; E11.42 Type 2 diabetes mellitus with diabetic polyneuropathy; F41.1 Generalized anxiety disorder; M54.5 Low back pain; G89.29 Other chronic pain; I87.2 Venous insufficiency (chronic) (peripheral); F33.2 Major depressive disorder, recurrent severe without psychotic features; I10 Essential (primary) hypertension; J44.9 Chronic obstructive pulmonary disease, unspecified; K21.9 Gastro-esophageal reflux disease without esophagitis; F10.20 Alcohol dependence, uncomplicated; Z20.822 Contact with and (suspected) exposure to COVID-19; F11.20 Opioid dependence, uncomplicated; I25.10 Atherosclerotic heart disease of native coronary artery without angina pectoris; M17.0 Bilateral primary osteoarthritis of knee; E55.9 Vitamin D deficiency, unspecified; Z86.718 Personal history of other venous thrombosis and embolism; Z79.4 Long term (current) use of insulin; Z88.0 Allergy status to penicillin; Z88.1 Allergy status to other antibiotic agents; Z88.8 Allergy status to other drugs, medicaments and biological substances; Z90.49 Acquired absence of other specified parts of digestive tract; Z95.5 Presence of coronary angioplasty implant and graft; Z82.49 Family history of ischemic heart disease and other diseases of the circulatory system; Z79.51 Long term (current) use of inhaled steroids; Z79.899 Other long term (current) drug therapy; Z79.1 Long term (current) use of non-steroidal anti-inflammatories (NSAID); E11.65 Type 2 diabetes mellitus with hyperglycemia

== ENCOUNTER 2020-12-03 11:52 | Emergency (ER) | payer OTHER ==
[~2020-12-03] VITALS: Ht 177.8 cm; Wt 111.1 kg
[~2020-12-03 11:52] MED LIST changes: +OXYCODONE HCL10 M1 PO; +VOLTAREN ARTHRI20 GM T
[2020-12-03 14:24] LABS: BASO % 0.2 % (0.0-1.0); EOS % 0.1 % (1.0-4.0); HEMATOCRIT 27.7 % (42.0-52.0); LYMPH # 1.5 10*3/uL (1.3-4.4); LYMPH % 7.8 % (27.0-41.0); MEAN CELL VOLUME 83.7 fl (80.0-94.0); MEAN CORPUSCULAR HGB 25.7 pg (27.0-31.0); MEAN CORPUSCULAR HGB CONC 30.7 g/dl (33.0-37.0); MONO # 1.2 10*3/uL (0.1-1.0); MONO % 6.3 % (3.0-9.0); NEUT # 16.5 10*3/uL (2.3-7.9); NEUT % 84.6 % (47.0-73.0); NUCLEATED RED BLOOD CELL 0.1 % (0.0-0.0); PLATELET COUNT AUTOMATED 160 10*3/uL (130-400); RED BLOOD COUNT 3.31 10*6/uL (4.50-5.90); RED CELL DISTRI WIDTH 15.9 % (0-14.5); WHITE BLOOD COUNT 19.4 10*3/uL (4.8-10.8)
[2020-12-03 14:38] LABS: ALBUMIN 2.8 gm/dl (3.1-4.5); ALKALINE PHOSPHATASE 141 U/L (45-117); BUN 40 mg/dl (7-24); CHLORIDE 99 mmol/L (98-107); CREATININE 1.28 mg/dL (0.70-1.30); POTASSIUM 4.5 mmol/L (3.5-5.1); SGOT/AST 112 IU/L (3-35); SGPT/ALT 132 U/L (12-78); SODIUM 133 mmol/L (136-145); TOTAL PROTEIN 7.3 gm/dL (6.4-8.2)
[2020-12-03 14:40] LABS: ACT PARTIAL THROMBO TIME 24.3 SECONDS (20.0-32.1); INTERNATIONAL NORM RATIO 1.3 (2.0-3.5)
[2020-12-03 14:57] LABS: TROPONIN I 0.136 ng/ml (<0.045)
== END 2020-12-03 16:04 | disposition left against medical advice (07) ==
LOC: ED 11:52
PROVIDERS: Emergency Medicine
DX: J44.1 Chronic obstructive pulmonary disease with (acute) exacerbation (principal); I11.0 Hypertensive heart disease with heart failure; I50.9 Heart failure, unspecified; I25.2 Old myocardial infarction; Z95.818 Presence of other cardiac implants and grafts; Z88.5 Allergy status to narcotic agent; Z79.899 Other long term (current) drug therapy; Z79.2 Long term (current) use of antibiotics; Z79.4 Long term (current) use of insulin; Z98.890 Other specified postprocedural states; Z53.29 Procedure and treatment not carried out because of patient's decision for other reasons

== ENCOUNTER 2020-12-04 15:51 | Inpatient (IN) | payer OTHER ==
[~2020-12-04] VITALS: Ht 177.8 cm; Wt 112.1 kg
[2020-12-04 15:54] VITALS: BP 105/59
[2020-12-04 16:48] LABS: HEMATOCRIT 27.6 % (42.0-52.0); MEAN CELL VOLUME 83.1 fl (80.0-94.0); MEAN CORPUSCULAR HGB 25.9 pg (27.0-31.0); MEAN CORPUSCULAR HGB CONC 31.2 g/dl (33.0-37.0); MEAN PLATELET VOLUME 11.7 fl (9.6-12.3); NUCLEATED RED BLOOD CELL 0.1 10*3/uL (0.0-0.0); NUCLEATED RED BLOOD CELL 0.2 % (0.0-0.0); PLATELET COUNT AUTOMATED 155 10*3/uL (130-400); RED BLOOD COUNT 3.32 10*6/uL (4.50-5.90); WHITE BLOOD COUNT 25.6 10*3/uL (4.8-10.8)
[2020-12-04 16:59] LABS: ACT PARTIAL THROMBO TIME 24.2 SECONDS (20.0-32.1); INTERNATIONAL NORM RATIO 1.4 (2.0-3.5)
[2020-12-04 17:00] VITALS: BP 107/60
[2020-12-04 17:04] LABS: ALBUMIN 2.6 gm/dl (3.1-4.5); ALKALINE PHOSPHATASE 150 U/L (45-117); BUN 43 mg/dl (7-24); CHLORIDE 106 mmol/L (98-107); CREATININE 1.13 mg/dL (0.70-1.30); LIPASE 102 U/L (73-393); POTASSIUM 4.2 mmol/L (3.5-5.1); SGOT/AST 75 IU/L (3-35); SGPT/ALT 118 U/L (12-78); SODIUM 137 mmol/L (136-145); TOTAL PROTEIN 6.8 gm/dL (6.4-8.2)
[2020-12-04 17:09] LABS: TOTAL CELLS COUNTED 100 #CELLS
[2020-12-04 17:10] LABS: MICROCYTOSIS SLIGHT; PLATELET SUFFICIENCY NORMAL (NORMAL); POLYCHROMASIA SLIGHT
[2020-12-04 18:00] VITALS: BP 105/58
[2020-12-04 19:39] LABS: ARTERIAL BLOOD GAS PH 7.484 (7.35-7.45); ARTERIAL BLOOD GAS PO2 62.9 (80-90)
[2020-12-04 20:09] VITALS: BP 103/50
[2020-12-04 20:20] VITALS: BP 127/59
[2020-12-05] VITALS: BP 112/51
[2020-12-05 04:00] VITALS: BP 111/52
[2020-12-05 06:05] LABS: ALBUMIN 2.4 gm/dl (3.1-4.5); ALKALINE PHOSPHATASE 143 U/L (45-117); BUN 46 mg/dl (7-24); CHLORIDE 105 mmol/L (98-107); CREATININE 1.09 mg/dL (0.70-1.30); SGOT/AST 54 IU/L (3-35); SGPT/ALT 102 U/L (12-78); SODIUM 137 mmol/L (136-145); TOTAL PROTEIN 6.4 gm/dL (6.4-8.2)
[2020-12-05 06:23] LABS: HEMATOCRIT 26.2 % (42.0-52.0); MEAN CELL VOLUME 82.6 fl (80.0-94.0); MEAN CORPUSCULAR HGB 25.6 pg (27.0-31.0); MEAN CORPUSCULAR HGB CONC 30.9 g/dl (33.0-37.0); NUCLEATED RED BLOOD CELL 0.2 % (0.0-0.0); RED BLOOD COUNT 3.17 10*6/uL (4.50-5.90); RED CELL DISTRI WIDTH 15.8 % (0-14.5); WHITE BLOOD COUNT 16.3 10*3/uL (4.8-10.8)
[2020-12-05 06:24] LABS: PLATELET COUNT AUTOMATED 105 10*3/uL (130-400)
[2020-12-05 07:07] LABS: POLYCHROMASIA SLIGHT; TARGET CELLS FEW; TOTAL CELLS COUNTED 100 #CELLS
[2020-12-05 07:08] LABS: PLATELET SUFFICIENCY LOW (NORMAL)
[2020-12-05 08:00] VITALS: BP 112/55
[2020-12-05 12:00] VITALS: BP 129/67
[2020-12-05 15:49] VITALS: BP 125/51
[2020-12-05 20:00] VITALS: BP 168/80
[2020-12-06] VITALS: BP 143/73
[2020-12-06 04:00] VITALS: BP 141/72
[2020-12-06 04:55] LABS: ALBUMIN 2.9 gm/dl (3.1-4.5); ALKALINE PHOSPHATASE 201 U/L (45-117); CHLORIDE 102 mmol/L (98-107); CREATININE 1.03 mg/dL (0.70-1.30); SGOT/AST 48 IU/L (3-35); SGPT/ALT 99 U/L (12-78); SODIUM 136 mmol/L (136-145); TOTAL PROTEIN 7.5 gm/dL (6.4-8.2)
[2020-12-06 04:56] LABS: BUN 34 mg/dl (7-24)
[2020-12-06 06:20] LABS: HEMATOCRIT 32.3 % (42.0-52.0); MEAN CELL VOLUME 85.4 fl (80.0-94.0); MEAN CORPUSCULAR HGB 25.1 pg (27.0-31.0); MEAN CORPUSCULAR HGB CONC 29.4 g/dl (33.0-37.0); MEAN PLATELET VOLUME 12.1 fl (9.6-12.3); PLATELET COUNT AUTOMATED 96 10*3/uL (130-400); RED BLOOD COUNT 3.78 10*6/uL (4.50-5.90); RED CELL DISTRI WIDTH 15.9 % (0-14.5); WHITE BLOOD COUNT 24.8 10*3/uL (4.8-10.8)
[2020-12-06 07:07] LABS: TOTAL CELLS COUNTED 100 #CELLS
[2020-12-06 07:08] LABS: PLATELET SUFFICIENCY LOW (NORMAL); POLYCHROMASIA SLIGHT
[2020-12-06 08:00] VITALS: BP 143/80
[2020-12-06 11:50] VITALS: BP 140/62
== END 2020-12-06 11:43 | disposition hospice, inpatient (51) | DRG 137 ==
LOC: ED 15:51 → ICCU 17:38 → EDHOLD 17:38 → ICCU 18:05
PROVIDERS: Emergency Medicine; Internal Medicine; ADMIT Internal Medicine; ATTEND Internal Medicine
PROC: 5A0935A Assistance with Respiratory Ventilation, Less than 24 Consecutive Hours, High Flow/Velocity Cannula (ICD-10-PCS; principal; 2020-12-05)
PROC: 5A09357 Assistance with Respiratory Ventilation, Less than 24 Consecutive Hours, Continuous Positive Airway Pressure (ICD-10-PCS; 2020-12-06)
DX: J69.0 Pneumonitis due to inhalation of food and vomit (principal); I13.0 Hypertensive heart and chronic kidney disease with heart failure and stage 1 through stage 4 chronic kidney disease, or unspecified chronic kidney disease; I50.33 Acute on chronic diastolic (congestive) heart failure; Z66 Do not resuscitate; E43 Unspecified severe protein-calorie malnutrition; Z51.5 Encounter for palliative care; F32.9 Major depressive disorder, single episode, unspecified; G47.33 Obstructive sleep apnea (adult) (pediatric); I25.10 Atherosclerotic heart disease of native coronary artery without angina pectoris; K21.9 Gastro-esophageal reflux disease without esophagitis; M17.10 Unilateral primary osteoarthritis, unspecified knee; J96.21 Acute and chronic respiratory failure with hypoxia; R74.01 Elevation of levels of liver transaminase levels; E83.41 Hypermagnesemia; D64.9 Anemia, unspecified; F41.1 Generalized anxiety disorder; K74.60 Unspecified cirrhosis of liver; E11.22 Type 2 diabetes mellitus with diabetic chronic kidney disease; J44.1 Chronic obstructive pulmonary disease with (acute) exacerbation; N18.9 Chronic kidney disease, unspecified; F10.10 Alcohol abuse, uncomplicated; B19.20 Unspecified viral hepatitis C without hepatic coma; Z88.0 Allergy status to penicillin; Z88.8 Allergy status to other drugs, medicaments and biological substances; Z82.49 Family history of ischemic heart disease and other diseases of the circulatory system; Z79.899 Other long term (current) drug therapy; Z79.4 Long term (current) use of insulin; Z90.49 Acquired absence of other specified parts of digestive tract; Z95.5 Presence of coronary angioplasty implant and graft; Z83.3 Family history of diabetes mellitus; Z79.51 Long term (current) use of inhaled steroids; Z68.35 Body mass index [BMI] 35.0-35.9, adult

== ENCOUNTER 2020-12-06 14:02 | Inpatient (IN) | payer OTHER ==
[2020-12-06 16:00] VITALS: BP 144/65
[2020-12-07] VITALS: BP 133/50
[2020-12-07 08:00] VITALS: BP 121/62
[2020-12-07 16:00] VITALS: BP 132/55
[2020-12-08] VITALS: BP 145/51
[2020-12-08 08:00] VITALS: BP 144/48
[2020-12-08 16:00] VITALS: BP 134/56
[2020-12-08 20:00] VITALS: BP 131/62
[2020-12-09 08:00] VITALS: BP 138/68
[2020-12-09 16:00] VITALS: BP 132/88
[2020-12-09 20:00] VITALS: BP 146/56
[2020-12-10] VITALS: BP 144/55
== END 2020-12-10 07:27 | DRG 291 ==
LOC: ICCU 14:02 → 5E 12-09 07:53
PROVIDERS: ADMIT Internal Medicine; ATTEND Internal Medicine
PROC: 5A09357 Assistance with Respiratory Ventilation, Less than 24 Consecutive Hours, Continuous Positive Airway Pressure (ICD-10-PCS; principal; 2020-12-08)
PROC: 5A09357 Assistance with Respiratory Ventilation, Less than 24 Consecutive Hours, Continuous Positive Airway Pressure (ICD-10-PCS; 2020-12-09)
DX: I11.0 Hypertensive heart disease with heart failure (principal); J18.9 Pneumonia, unspecified organism; J96.21 Acute and chronic respiratory failure with hypoxia; J44.0 Chronic obstructive pulmonary disease with (acute) lower respiratory infection; J44.1 Chronic obstructive pulmonary disease with (acute) exacerbation; Z66 Do not resuscitate; Z51.5 Encounter for palliative care; I50.43 Acute on chronic combined systolic (congestive) and diastolic (congestive) heart failure; I25.10 Atherosclerotic heart disease of native coronary artery without angina pectoris; G89.29 Other chronic pain; F41.1 Generalized anxiety disorder; M17.10 Unilateral primary osteoarthritis, unspecified knee; K74.60 Unspecified cirrhosis of liver; B18.2 Chronic viral hepatitis C; K21.9 Gastro-esophageal reflux disease without esophagitis; F32.9 Major depressive disorder, single episode, unspecified; G47.33 Obstructive sleep apnea (adult) (pediatric); R10.84 Generalized abdominal pain; Z20.822 Contact with and (suspected) exposure to COVID-19; E11.9 Type 2 diabetes mellitus without complications; D53.9 Nutritional anemia, unspecified; Z86.718 Personal history of other venous thrombosis and embolism; Z95.810 Presence of automatic (implantable) cardiac defibrillator; Z95.5 Presence of coronary angioplasty implant and graft; Z90.49 Acquired absence of other specified parts of digestive tract; Z87.891 Personal history of nicotine dependence; Z82.49 Family history of ischemic heart disease and other diseases of the circulatory system; Z84.1 Family history of disorders of kidney and ureter; Z83.3 Family history of diabetes mellitus; Z88.0 Allergy status to penicillin; Z88.8 Allergy status to other drugs, medicaments and biological substances; Z79.899 Other long term (current) drug therapy; Z79.4 Long term (current) use of insulin